=== PATIENT | male | born 1945 | race Caucasian/White ===

== ENCOUNTER 2023-02-05 09:31 | Outpatient (CLI) | payer MEDICARE, SELFPAY ==
[2023-02-05 09:40] VITALS: BMI 29.4
[2023-02-05 10:01] LABS: Basophils % 0.8 % (0.1-2.0); Eosinophils # 0.5 K/mm3 (0.0-0.4); Eosinophils % 9.3 % (0.1-12.0); Hematocrit 40.2 % (42.0-52.0); Hemoglobin 13.3 g/dL (14.1-18.0); Lymphocytes # 0.7 K/mm3 (0.7-4.5); Mean Corpuscular HGB Conc 33.2 g/dL (31.8-35.4); Mean Corpuscular Hemoglobin 30.4 pg (27.0-31.2); Mean Corpuscular Volume 91.7 fl (80-94); Mean Platelet Volume 9.9 fl (7.4-10.4); Monocytes # 0.4 K/mm3 (0.1-1.0); Monocytes % 6.3 % (1.7-9.3); Neutrophils % 70.6 % (37.0-80.0); Platelet Count 151 K/mm3 (142-424); Red Blood Count 4.38 M/mm3 (4.60-6.20); Red Cell Distribution Width 14.4 % (11.5-17.5); White Blood Count 5.6 K/mm3 (4.8-10.8)
[2023-02-05 10:04] LABS: Chloride 106 mmol/L (98-107); Potassium 3.4 mmoL/L (3.5-5.1); Sodium 139 mmol/L (136-145)
[2023-02-05 10:07] LABS: Alanine Aminotransferase 16 U/L (12-78); Albumin Level 3.9 g/dl (3.5-5.0); Albumin/Globulin Ratio 1.9 (1.1-1.8); Alkaline Phosphatase 26 U/L (38-126); Anion Gap 5.4 mEq/L (5-15); Aspartate Amino Transferase 31 U/L (17-59); Bilirubin,Total 0.7 mg/dl (0.2-1.3); Blood Urea Nitrogen 22 mg/dl (9-20); Calcium 8.9 mg/dl (8.4-10.2); Carbon Dioxide 31 mmol/L (22.0-30.0); Creatinine Clearance Estimated 79 mL/min (50-200); Estimated Glomerular Filt Rate 65 ml/min (>60); GFR (African American) 79 ML/MIN (>60); Globulin 2.1 g/dL (1.3-3.2); Glucose 108 mg/dl (74-100)
[2023-02-05] MEDS: DENOSUMAB 120MG/1.7ML VIAL 120 MG SQ (10:08)
[2023-02-05 10:10] VITALS: BP 131/69; PULSE 55; RESP 18; TEMP 36.7; O2SAT 98
[2023-02-05 11:22] LABS: Prostate Specific Ag, Diagnost 4.59 ng/ml (0.0-4.0)
== END 2023-02-05 10:10 | disposition home or self-care (01) ==
LOC: INF 09:36
PROVIDERS: Visit Provider Internal Medicine Medical Oncology
DX: C61 Malignant neoplasm of prostate (principal); C79.82 Secondary malignant neoplasm of genital organs
CPT/HCPCS: 36415; 80053; 84153; 85025; 96372; J0897

== ENCOUNTER 2023-05-20 15:52 | Outpatient (CLI) | payer MEDICARE, SELFPAY ==
[2023-05-20 15:57] VITALS: BMI 37.3
[2023-05-20] MEDS: DENOSUMAB 120MG/1.7ML VIAL 120 MG SQ (16:04)
[2023-05-20 16:06] VITALS: BP 133/66; PULSE 65; RESP 18; O2SAT 96
[2023-05-20 16:54] LABS: Basophils # 0.1 K/mm3 (0-0.2); Eosinophils # 0.2 K/mm3 (0.0-0.4); Eosinophils % 3.6 % (0.1-12.0); Hematocrit 38.8 % (42.0-52.0); Hemoglobin 13.2 g/dL (14.1-18.0); Lymphocytes # 0.7 K/mm3 (0.7-4.5); Lymphocytes % 12.5 % (10-50); Mean Corpuscular HGB Conc 33.9 g/dL (31.8-35.4); Mean Corpuscular Hemoglobin 31.9 pg (27.0-31.2); Mean Platelet Volume 9.4 fl (7.4-10.4); Monocytes # 0.4 K/mm3 (0.1-1.0); Monocytes % 7.4 % (1.7-9.3); Neutrophils # 4.5 K/mm3 (1.8-7.8); Neutrophils % 75.5 % (37.0-80.0); Platelet Count 174 K/mm3 (142-424); Red Blood Count 4.13 M/mm3 (4.60-6.20); White Blood Count 5.9 K/mm3 (4.8-10.8)
[2023-05-20 17:03] LABS: Alanine Aminotransferase 16 U/L (12-78); Albumin Level 3.9 g/dl (3.5-5.0); Alkaline Phosphatase 35 U/L (38-126); Anion Gap 7.8 mEq/L (5-15); Aspartate Amino Transferase 36 U/L (17-59); Bilirubin,Total 0.6 mg/dl (0.2-1.3); Calcium 9.1 mg/dl (8.4-10.2); Carbon Dioxide 28 mmol/L (22.0-30.0); Chloride 107 mmol/L (98-107); Glucose 104 mg/dl (74-100); Potassium 3.8 mmoL/L (3.5-5.1); Sodium 139 mmol/L (136-145); Total Protein,Serum 5.9 g/dl (6.3-8.2)
[2023-05-20 17:33] LABS: Prostate Specific Ag, Diagnost 4.11 ng/ml (0.0-4.0)
[2023-05-20 17:49] LABS: Blood Urea Nitrogen 25 mg/dl (9-20); Creatinine Clearance Estimated 79 mL/min (50-200); Estimated Glomerular Filt Rate 65 ml/min (>60); GFR (African American) 79 ML/MIN (>60)
== END 2023-05-20 16:06 | disposition home or self-care (01) ==
LOC: INF 15:54
PROVIDERS: Visit Provider Internal Medicine Medical Oncology
DX: C79.82 Secondary malignant neoplasm of genital organs (principal); C61 Malignant neoplasm of prostate
CPT/HCPCS: 80053; 84153; 85025; 96372; J0897

== ENCOUNTER 2023-08-12 13:35 | Outpatient (CLI) | payer MEDICARE, SELFPAY ==
[2023-08-12 13:39] VITALS: BMI 29.7
[2023-08-12 13:40] VITALS: BP 157/64; PULSE 74; TEMP 36.6; O2SAT 99
[2023-08-12] MEDS: DENOSUMAB 120MG/1.7ML VIAL 120 MG SQ (13:50)
[2023-08-12 14:09] LABS: Alanine Aminotransferase 21 U/L (12-78); Albumin Level 3.9 g/dl (3.5-5.0); Albumin/Globulin Ratio 1.8 (1.1-1.8); Alkaline Phosphatase 51 U/L (38-126); Anion Gap 11.2 mEq/L (5-15); Aspartate Amino Transferase 34 U/L (17-59); Bilirubin,Total 1.4 mg/dl (0.2-1.3); Blood Urea Nitrogen 23 mg/dl (9-20); Calcium 9.4 mg/dl (8.4-10.2); Carbon Dioxide 28 mmol/L (22.0-30.0); Chloride 102 mmol/L (98-107); Creatinine Clearance Estimated 87 mL/min (50-200); Estimated Glomerular Filt Rate 94 ml/min (>60); GFR (African American) 114 ML/MIN (>60); Globulin 2.2 g/dL (1.3-3.2); Glucose 141 mg/dl (74-100); Potassium 4.2 mmoL/L (3.5-5.1); Sodium 137 mmol/L (136-145); Total Protein,Serum 6.1 g/dl (6.3-8.2)
[2023-08-12 14:24] LABS: Basophils % 0.6 % (0.1-2.0); Eosinophils # 0.1 K/mm3 (0.0-0.4); Eosinophils % 1.3 % (0.1-12.0); Hematocrit 41.8 % (42.0-52.0); Lymphocytes # 0.7 K/mm3 (0.7-4.5); Lymphocytes % 10.1 % (10-50); Mean Corpuscular HGB Conc 33.6 g/dL (31.8-35.4); Mean Corpuscular Hemoglobin 31.2 pg (27.0-31.2); Mean Corpuscular Volume 92.9 fl (80-94); Monocytes # 0.3 K/mm3 (0.1-1.0); Monocytes % 4.6 % (1.7-9.3); Neutrophils % 83.4 % (37.0-80.0); Platelet Count 142 K/mm3 (142-424); Red Blood Count 4.49 M/mm3 (4.60-6.20); Red Cell Distribution Width 14.9 % (11.5-17.5); White Blood Count 7.2 K/mm3 (4.8-10.8)
[2023-08-12 14:40] LABS: Prostate Specific Ag, Diagnost 5.81 ng/ml (0.0-4.0)
== END 2023-08-12 13:55 | disposition home or self-care (01) ==
LOC: INF 13:37
PROVIDERS: Visit Provider Internal Medicine Medical Oncology
DX: C61 Malignant neoplasm of prostate (principal); C79.51 Secondary malignant neoplasm of bone; Z79.620 Long term (current) use of immunosuppressive biologic
CPT/HCPCS: 80053; 84153; 85025; 96372; J0897

== ENCOUNTER 2023-11-11 15:40 | Outpatient (CLI) | payer MEDICARE, SELFPAY ==
[2023-11-11 15:48] VITALS: BMI 29.4
[2023-11-11 15:56] VITALS: BP 127/73; PULSE 51; RESP 18; O2SAT 98
[2023-11-11 16:01] LABS: Basophils # 0.1 K/mm3 (0-0.2); Basophils % 0.9 % (0.1-2.0); Eosinophils # 0.1 K/mm3 (0.0-0.4); Hematocrit 42.9 % (42.0-52.0); Hemoglobin 13.9 g/dL (14.1-18.0); Lymphocytes # 0.8 K/mm3 (0.7-4.5); Lymphocytes % 12.2 % (10-50); Mean Corpuscular HGB Conc 32.4 g/dL (31.8-35.4); Mean Corpuscular Volume 92.8 fl (80-94); Mean Platelet Volume 8.9 fl (7.4-10.4); Monocytes # 0.4 K/mm3 (0.1-1.0); Monocytes % 5.7 % (1.7-9.3); Neutrophils # 5.1 K/mm3 (1.8-7.8); Neutrophils % 79.2 % (37.0-80.0); Platelet Count 168 K/mm3 (142-424); Red Blood Count 4.62 M/mm3 (4.60-6.20); Red Cell Distribution Width 14.5 % (11.5-17.5); White Blood Count 6.4 K/mm3 (4.8-10.8)
[2023-11-11 16:30] LABS: Alanine Aminotransferase 14 U/L (12-78); Albumin Level 3.7 g/dl (3.5-5.0); Albumin/Globulin Ratio 1.7 (1.1-1.8); Alkaline Phosphatase 31 U/L (38-126); Anion Gap 7.2 mEq/L (5-15); Aspartate Amino Transferase 28 U/L (17-59); Bilirubin,Total 0.8 mg/dl (0.2-1.3); Blood Urea Nitrogen 22 mg/dl (9-20); Calcium 9.8 mg/dl (8.4-10.2); Carbon Dioxide 28 mmol/L (22.0-30.0); Chloride 106 mmol/L (98-107); Creatinine Clearance Estimated 85 mL/min (50-200); Estimated Glomerular Filt Rate 73 ml/min (>60); GFR (African American) 88 ML/MIN (>60); Globulin 2.2 g/dL (1.3-3.2); Glucose 103 mg/dl (74-100); Potassium 4.2 mmoL/L (3.5-5.1); Sodium 137 mmol/L (136-145); Total Protein,Serum 5.9 g/dl (6.3-8.2)
[2023-11-11 17:00] LABS: Prostate Specific Ag, Diagnost 6.29 ng/ml (0.0-4.0)
== END 2023-11-11 16:00 | disposition home or self-care (01) ==
LOC: INF 15:42
PROVIDERS: Visit Provider Internal Medicine Medical Oncology
DX: C79.82 Secondary malignant neoplasm of genital organs (principal); Z79.899 Other long term (current) drug therapy
CPT/HCPCS: 80053; 84153; 85025; 96372; J0897

== ENCOUNTER 2024-02-17 13:33 | Outpatient (CLI) | payer MEDICARE, SELFPAY ==
[2024-02-17 13:52] VITALS: BMI 30.1
[2024-02-17] MEDS: DENOSUMAB 120MG/1.7ML VIAL 120 MG SUBCUT (14:00)
[2024-02-17 14:10] VITALS: BP 127/74; PULSE 56; RESP 18; TEMP 36.6; O2SAT 96
[2024-02-17 14:16] LABS: Alanine Aminotransferase 13 U/L (12-78); Alkaline Phosphatase 29 U/L (38-126); Anion Gap 8.9 mEq/L (5-15); Aspartate Amino Transferase 32 U/L (17-59); Bilirubin,Total 0.8 mg/dl (0.2-1.3); Blood Urea Nitrogen 25 mg/dl (9-20); Calcium 9.5 mg/dl (8.4-10.2); Carbon Dioxide 27 mmol/L (22.0-30.0); Chloride 106 mmol/L (98-107); Creatinine Clearance Estimated 87 mL/min (50-200); Estimated Glomerular Filt Rate 73 ml/min (>60); GFR (African American) 88 ML/MIN (>60); Glucose 95 mg/dl (74-100); Potassium 3.9 mmoL/L (3.5-5.1); Sodium 138 mmol/L (136-145)
[2024-02-17 14:18] LABS: Basophils % 0.7 % (0.1-2.0); Eosinophils # 0.1 K/mm3 (0.0-0.4); Eosinophils % 1.9 % (0.1-12.0); Hematocrit 34.6 % (42.0-52.0); Lymphocytes % 14.6 % (10-50); Mean Corpuscular HGB Conc 37.4 g/dL (31.8-35.4); Mean Corpuscular Hemoglobin 33.5 pg (27.0-31.2); Mean Corpuscular Volume 89.5 fl (80-94); Mean Platelet Volume 9.3 fl (7.4-10.4); Monocytes # 0.5 K/mm3 (0.1-1.0); Monocytes % 8.2 % (1.7-9.3); Neutrophils # 4.9 K/mm3 (1.8-7.8); Neutrophils % 74.7 % (37.0-80.0); Platelet Count 151 K/mm3 (142-424); Red Blood Count 3.87 M/mm3 (4.60-6.20); Red Cell Distribution Width 14.5 % (11.5-17.5); White Blood Count 6.5 K/mm3 (4.8-10.8)
[2024-02-17 14:47] LABS: Prostate Specific Ag, Diagnost 7.24 ng/ml (0.0-4.0)
== END 2024-02-17 14:20 | disposition home or self-care (01) ==
LOC: INF 13:36
PROVIDERS: Visit Provider Internal Medicine Medical Oncology
DX: C79.82 Secondary malignant neoplasm of genital organs (principal)
CPT/HCPCS: 80053; 84153; 85025; 96372; J0897

== ENCOUNTER → 2024-03-24 10:04 | Outpatient (CLI) | payer MEDICARE, SELFPAY ==
--- NOTE | 2024-03-24 10:49 | PC.NURSE ---
0951- labs and guardant drawn per MD order via butterfly needle in left ac. needle removed and coban applied. pt tolerated well.
== END | disposition home or self-care (01) ==
LOC: INF 10:04
PROVIDERS: Visit Provider Internal Medicine Medical Oncology
DX: C79.82 Secondary malignant neoplasm of genital organs (principal)
CPT/HCPCS: 36415

== ENCOUNTER 2024-05-12 08:41 | Outpatient (CLI) | payer MEDICARE, SELFPAY ==
--- NOTE | 2024-05-12 08:54 | PC.NURSE ---
0850-Blood drawn from left AC using butterfly needle to check labs per Dr Garcia.
[2024-05-12 09:07] LABS: Basophils # 0.1 K/mm3 (0-0.2); Basophils % 0.8 % (0.1-2.0); Eosinophils # 0.9 K/mm3 (0.0-0.4); Eosinophils % 12.7 % (0.1-12.0); Hematocrit 38.8 % (42.0-52.0); Hemoglobin 13.4 g/dL (14.1-18.0); Lymphocytes % 14.7 % (10-50); Mean Corpuscular HGB Conc 34.5 g/dL (31.8-35.4); Mean Corpuscular Volume 86.8 fl (80-94); Monocytes # 0.7 K/mm3 (0.1-1.0); Monocytes % 9.3 % (1.7-9.3); Neutrophils # 4.3 K/mm3 (1.8-7.8); Neutrophils % 60.4 % (37.0-80.0); Platelet Count 208 K/mm3 (142-424); Red Blood Count 4.47 M/mm3 (4.60-6.20); Red Cell Distribution Width 13.7 % (11.5-17.5); White Blood Count 7.1 K/mm3 (4.8-10.8)
[2024-05-12 09:13] LABS: Alanine Aminotransferase 22 U/L (12-78); Albumin Level 4.2 g/dl (3.5-5.0); Albumin/Globulin Ratio 2.2 (1.1-1.8); Alkaline Phosphatase 36 U/L (38-126); Anion Gap 10.1 mEq/L (5-15); Aspartate Amino Transferase 43 U/L (17-59); Bilirubin,Total 0.3 mg/dl (0.2-1.3); Blood Urea Nitrogen 16 mg/dl (9-20); Calcium 9.5 mg/dl (8.4-10.2); Carbon Dioxide 26 mmol/L (22.0-30.0); Chloride 103 mmol/L (98-107); Estimated Glomerular Filt Rate 65 ml/min (>60); GFR (African American) 79 ML/MIN (>60); Globulin 1.9 g/dL (1.3-3.2); Glucose 98 mg/dl (74-100); Potassium 4.1 mmoL/L (3.5-5.1); Sodium 135 mmol/L (136-145); Total Protein,Serum 6.1 g/dl (6.3-8.2)
== END 2024-05-12 08:52 | disposition home or self-care (01) ==
LOC: INF 08:42
PROVIDERS: Visit Provider Internal Medicine Medical Oncology
DX: C79.82 Secondary malignant neoplasm of genital organs (principal)
CPT/HCPCS: 36415; 80053; 85025

== ENCOUNTER 2024-06-01 13:28 | Outpatient (CLI) | payer MEDICARE, SELFPAY ==
[2024-06-01 13:30] VITALS: BP 131/70; PULSE 76; RESP 18; TEMP 36.7; O2SAT 99
[2024-06-01] MEDS: DENOSUMAB 120MG/1.7ML VIAL 120 MG SUBCUT (13:45)
[2024-06-01 13:46] LABS: Basophils # 0.1 K/mm3 (0-0.2); Basophils % 0.8 % (0.1-2.0); Eosinophils # 0.2 K/mm3 (0.0-0.4); Eosinophils % 2.7 % (0.1-12.0); Hematocrit 41.1 % (42.0-52.0); Hemoglobin 13.7 g/dL (14.1-18.0); Lymphocytes # 0.8 K/mm3 (0.7-4.5); Lymphocytes % 12.4 % (10-50); Mean Corpuscular HGB Conc 33.3 g/dL (31.8-35.4); Mean Corpuscular Hemoglobin 30.2 pg (27.0-31.2); Mean Corpuscular Volume 90.5 fl (80-94); Mean Platelet Volume 11.2 fl (7.4-10.4); Monocytes # 0.5 K/mm3 (0.1-1.0); Monocytes % 7.5 % (1.7-9.3); Neutrophils # 4.9 K/mm3 (1.8-7.8); Neutrophils % 75.2 % (37.0-80.0); Platelet Count 172 K/mm3 (142-424); Red Blood Count 4.54 M/mm3 (4.60-6.20); Red Cell Distribution Width 14.1 % (11.5-17.5); White Blood Count 6.6 K/mm3 (4.8-10.8)
[2024-06-01 13:50] LABS: Albumin Level 4.1 g/dl (3.5-5.0); Chloride 105 mmol/L (98-107); Sodium 140 mmol/L (136-145)
[2024-06-01 13:53] LABS: Alanine Aminotransferase 16 U/L (12-78); Albumin/Globulin Ratio 2.1 (1.1-1.8); Alkaline Phosphatase 36 U/L (38-126); Aspartate Amino Transferase 34 U/L (17-59); Bilirubin,Total 0.7 mg/dl (0.2-1.3); Blood Urea Nitrogen 17 mg/dl (9-20); Calcium 9.6 mg/dl (8.4-10.2); Carbon Dioxide 28 mmol/L (22.0-30.0); Estimated Glomerular Filt Rate 73 ml/min (>60); GFR (African American) 88 ML/MIN (>60); Glucose 115 mg/dl (74-100); Total Protein,Serum 6.1 g/dl (6.3-8.2)
[2024-06-01 15:01] LABS: Prostate Specific Ag, Diagnost 7.61 ng/ml (0.0-4.0)
== END 2024-06-01 13:54 | disposition home or self-care (01) ==
LOC: INF 13:29
PROVIDERS: Visit Provider Internal Medicine Medical Oncology
DX: C79.82 Secondary malignant neoplasm of genital organs (principal)
CPT/HCPCS: 36415; 80053; 84153; 85025; 96372; J0897

== ENCOUNTER 2024-07-14 13:25 | Outpatient (CLI) | payer MEDICARE, SELFPAY ==
[2024-07-14 13:52] LABS: Chloride 105 mmol/L (98-107); Sodium 138 mmol/L (136-145)
[2024-07-14 13:53] LABS: Basophils % 0.7 % (0.1-2.0); Eosinophils # 0.1 Kmm3 (0.0-0.4); Eosinophils % 2.4 % (0.1-12.0); Hematocrit 39.8 % (42.0-52.0); Hemoglobin 13.4 g/dL (14.1-18.0); Immature Granulocytes # 0.09 10^3uL; Immature Granulocytes % 1.6 %; Lymphocytes # 0.7 K/mm3 (0.7-4.5); Mean Corpuscular HGB Conc 33.7 g/dL (31.8-35.4); Mean Corpuscular Hemoglobin 30.9 pg (27.0-31.2); Mean Corpuscular Volume 91.9 fl (80-94); Mean Platelet Volume 11.3 fl (7.4-10.4); Monocytes # 0.4 K/mm3 (0.1-1.0); Monocytes % 8.1 % (1.7-9.3); Neutrophils # 4.1 K/mm3 (1.8-7.8); Neutrophils % 74.2 % (37.0-80.0); Nucleated Red Blood Cells # 0 10^3/uL; Nucleated Red Blood Cells % 0 %; Platelet Count 173 K/mm3 (142-424); Potassium 4.3 mmoL/L (3.5-5.1); Red Blood Count 4.33 M/mm3 (4.60-6.20); Red Cell Distribution Width 14.4 % (11.5-17.5); Red Cell Distribution Width-SD 48.3 fL; White Blood Count 5.5 K/mm3 (4.8-10.8)
[2024-07-14 13:55] LABS: Alanine Aminotransferase 19 U/L (12-78); Albumin/Globulin Ratio 1.8 (1.1-1.8); Anion Gap 10.3 mEq/L (5-15); Aspartate Amino Transferase 32 U/L (17-59); Blood Urea Nitrogen 23 mg/dl (9-20); Carbon Dioxide 27 mmol/L (22.0-30.0); Estimated Glomerular Filt Rate 59 ml/min (>60); GFR (African American) 71 ML/MIN (>60); Globulin 2.2 g/dL (1.3-3.2); Total Protein,Serum 6.2 g/dl (6.3-8.2)
[2024-07-14 13:56] LABS: Alkaline Phosphatase 30 U/L (38-126); Bilirubin,Total 0.7 mg/dl (0.2-1.3); Calcium 9.7 mg/dl (8.4-10.2); Glucose 122 mg/dl (74-100)
[2024-07-14 15:36] LABS: Prostate Specific Ag, Diagnost 6.88 ng/ml (0.0-4.0)
== END 2024-07-14 13:35 | disposition home or self-care (01) ==
LOC: INF 13:32
PROVIDERS: Visit Provider Internal Medicine Medical Oncology
DX: C79.82 Secondary malignant neoplasm of genital organs (principal)
CPT/HCPCS: 36415; 80053; 84153; 85025

== ENCOUNTER 2024-08-25 13:40 | Outpatient (CLI) | payer MEDICARE, SELFPAY ==
--- OUTSIDE RECORDS SUMMARY | 2024-08-25 13:45 | XMS_ITS | Clinical Summary ---
Author Organization [employer] Address [address] [place] [address] Care Team Providers Care Distribution Analyst Name Role Phone Bruce Garcia MD Unavailable Raya Eaton PA-C Unavailable [phone] Luz Suarez RN Unavailable Unavailable Close, Berkley Girard RN Unavailable Unavailable Allergies Active Allergy Reactions Criticality Noted Date Comments Tuberculin Ppd 05/06/2022 Medications glucosamine sulfate 500 mg Tab glucosamine sulfate 500 mg tablet Active atorvastatin (LIPITOR) 10 MG tablet Lipitor 10 mg tablet Every night at bedtime Active bisoprolol-hydr oCHLOROthiazide (ZIAC) 10-6.25 mg per tablet Ziac 10 mg-6.25 mg tablet Daily Active fenofibrate 150 mg Cap Fenofibrate Active predniSONE (DELTASONE) 5 MG tablet Take 1 tablet (5 mg total) by mouth in the morning. 90 tablet 3 3 Active abiraterone (Zytiga) 500 mg Tab Take 2 tablets (1,000 mg total) by mouth daily. Take 2 tablets daily by mouth 60 tablet 3 3 Active atorvastatin (LIPITOR) 20 MG tablet Take 1 tablet (20 mg total) by mouth daily. 3 Active Active Problems Problem Noted Date Diagnosed Date Prostate cancer 01/23/2022 Cancer Staging:Clinical:Stage IVB(cTX, cN0, pM1b) - Signed by Bruce Garcia MD on 01/23/2022 Social History Tobacco Use Types Packs/Day Years Used Date Smoking Tobacco: Never Alcohol Use Standard Drinks/Week Comments Never 0 (1 standard drink = 0.6 oz pur e alcohol) Social Connection and Isolat ion Panel [NHANES] Answer Date Recorded In a typical week, how many times do you talk on the phone with family, friends, or neighbors? More than three times a week 05/06/2022 How often do you get togethe r with friends or relatives? More than three times a week 05/06/2022 How often do you attend chur ch or christian services? More than 4 times per year 05/06/2022 Do you belong to any clubs o r organizations such as methodist groups, unions, fraternal or athletic groups, or school groups? No 05/06/2022 How often do you attend meet ings of the clubs or organizations you belong to? Never 05/06/2022 Are you , , di vorced, , never , or living with a partner? 05/06/2022 AUDIT-C Answer Date Recorded Q1: How often do you have a drink containing alc ohol? Never 05/06/2022 Average Number of Drinks Not on file 023 Frequency of Binge Drinking Not on file 03/2022 Overall Financial Resource Strain (CARDIA) Answe r Date Recorded How hard is it for you to pa y for the very basics like food, housing, medical care, and heating? Not hard at all 05/06/2022 [facility] - Occupational Stress Questionnaire Answer Date Recorded Do you feel stress - tense, restless, nervous, or anxious, or unable to sleep at night because your mind is troubled all the time - these days? Not at all 05/06/2022 Exercise Vital Sign Answer Date Recorde d On average, how many days pe r week do you engage in moderate to strenuous exercise (like a brisk walk)? 4 days 05/06/2022 On average, how many minutes do you engage in exercise at this level? 30 min 05/06/2022 Hunger Vital Sign Answer Date Recorded Within the past 12 months, y ou worried that your food would run out before you got the money to buy more. Never true 05/07/19 23 Within the past 12 months, t he food you bought just didn't last and you didn't have money to get more. Never true 05/06/2022 PRAPARE - Transportation Answer Date Re corded In the past 12 months, has l ack of transportation kept you from medical appointments or from getting medications? No 03/2022 In the past 12 months, has l ack of transportation kept you from meetings, work, or from getting things needed for daily living? No 05/06/2022 Housing Stability Vital Sign Answer August e Recorded In the last 12 months, was t here a time when you were not able to pay the mortgage or rent on time? No 05/06/2022 Number of Places Lived in the Last Year Not on f ile 05/06/2022 In the last 12 months, was t here a time when you did not have a steady place to sleep or slept in a half-way (including now)? No 05/06/2022 Interpersonal Safety Answer Date Record ed Family or friends hurt you Not on file 03/25 Family or friends insult you Not on file Family or friends threaten you Not on file 0 03/25/2023 Family or friends scream or curse at you Not on file 03/25/2023 Housing Stability Answer Date Recorded Living situation today Not on file Living situation problems Not on file 2023 Food Insecurity Answer Date Recorded Food run out past 12 months Not on file 03/08 Food did not last past 12 months Not on file 03/25/2023 Employment Answer Date Recorded Help finding and keeping a job Not on file 0 03/25/2023 Family and Community Support Answer August e Recorded Help with Day to Day Activities Not on file 03/25/2023 Feeling Lonely or Isolated Not on file 03/25 Educational Attainment Answer Date Ethan rded Speak language other than Macedonian at home Not on file 03/25/2023 Want help with school or training Not on file 03/25/2023 Depression Answer Date Recorded PHQ-2 Risk Not on file 03/25/2023 Disabilities Answer Date Recorded Difficulty concentrating Not on file 024 Difficulty doing errands alone Not on file 0 03/25/2023 Substance Use Answer Date Recorded Used prescription meds for non-medical reasons N ot on file 03/25/2023 Used illegal drugs past 12 months Not on file 03/25/2023 Sex and Gender Information Value Date Recorded Sex Assigned at Not on file Legal Sex Male 5:24 PM CDT Gender Identity Not on file Sexual Orientation Not on file Last Filed Vital Signs Vital Sign Reading Time Taken Comments Blood Pressure 136/65 11/13/2022 9:54 AM EDT Pulse 54 11/13/2022 9:54 AM EDT Temperature 36.2 C (97.2 F) 11/13/2022 9:54 AM EDT Respiratory Rate 16 11/13/2022 9:54 AM EDT Oxygen Saturation 97% 11/13/2022 9:54 AM EDT Inhaled Oxygen Concentration - - Weight 94.5 kg (208 lb 4.8 oz) 11/13/2022 9:54 A M EDT Height 176 cm (5' 9.29 ) 11/13/2022 9:54 AM EDT Body Mass Index 30.5 11/13/2022 9:54 AM EDT Plan of Treatment Health Maintenance Due Date Last Done Comments Depression Screening (12+) 1959 Hepatitis C Screening 08/30/1965 DTAP/TDAP/TD VACCINES (1 - Tdap) 08/30/1966 Pneumococcal 50+ years (1 of 1 - PCV) 08/30/1997 Shingles Vaccine (Zoster) (1 of 2) 08/30/1997 Medicare Initial AWV G0438 11/07/2020 Respiratory Syncytial Virus (RSV) Adult or (1 - 1-dose 75+ series) 08/30/2022 Tobacco Cessation Counseling and Screening (12+) 08/1408/14/2022 COVID-19 VACCINE ( - season) 2023 Falls Risk Screening 03/08/2024 Influenza Vaccine (Season Ended) 2024 Insurance [employer] MEDICARE PPO [employer] MEDICARE HMO Care Teams Distribution Analyst Relationship Specialty Start Date End Date Bruce Garcia MD [address] [facility] [address] [place] [address] Medical Oncologist Hematology and Oncology 05/05/22 Raya Eaton, PACaroleeC [address] [place] [address] Physician Wet Process Miller Oncology 05/05/22 Luz Suarez, RN Nurse Navigator Oncology 07/02/22 Berkley Berry RN Registered Nurse Oncology 07/02/22
--- OUTSIDE RECORDS SUMMARY | 2024-08-25 13:45 | XMS_ITS | Encounter Summary ---
Author Organization [email or web address] Address [address] [place] [address] Care Team Providers Care Purifying Plant Operator Name Role Phone Bruce Garcia MD Unavailable Raya Eaton PA-C Unavailable [phone] Luz Suarez RN Unavailable Unavailable Close, Berkley Girard RN Unavailable Unavailable Encounter Details Date Type Department Care Team (Late st Contact Info) Description 07/27/2019 Transcribed Document [facility] [place] [address] [place] [address] ProviderJarret MD [address] [place] [address] Social History Tobacco Use Types Packs/Day Years Used Date Smoking Tobacco: Never Assessed Sex and Gender Information Value Date Recorded Sex Assigned at Not on file Legal Sex Male 5:24 PM CDT Gender Identity Not on file Sexual Orientation Not on file documented as of this encounter Miscellaneous Notes * Cerner Conversion Note - Jarret Sotelo MD - 07/27/2019 3:31 PM CDT Patient Education Materials Follows: General Anesthesia, Adult, Care After This sheet gives you information about how to care for yourself after your procedure. Your health care provider may also give you more specific instructions. If you have problems or questions, contact your health care provider. What can I expect after the procedure? After the procedure, the following side effects are common: ??? Pain or discomfort at the IV site. ??? Nausea. ??? Vomiting. ??? Sore throat. ??? Trouble concentrating. ??? Feeling cold or chills. ??? Weak or tired. ??? Sleepiness and fatigue. ??? Soreness and body aches. These side effects can affect parts of the body that were not involved in surgery. Follow these instructions at home: For at least 24 hours after the procedure: ??? Have a responsible adult stay with you. It is important to have someone help care for you until you are awake and alert. ??? Rest as needed. ??? Do not: ? Participate in activities in which you could fall or become injured. ? Drive. ? Use heavy machinery. ? Drink alcohol. ? Take sleeping pills or medicines that cause drowsiness. ? Make important decisions or sign legal documents. ? Take care of children on your own. Eating and drinking ??? Follow any instructions from your health care provider about eating or drinking restrictions. ??? When you feel hungry, start by eating small amounts of foods that are soft and easy to digest (bland), such as toast. Gradually return to your regular diet. ??? Drink enough fluid to keep your urine pale yellow. ??? If you vomit, rehydrate by drinking water, juice, or clear broth. General instructions ??? If you have sleep apnea, surgery and certain medicines can increase your risk for breathing problems. Follow instructions from your health care provider about wearing your sleep device: ? Anytime you are sleeping, including during daytime naps. ? While taking prescription pain medicines, sleeping medicines, or medicines that make you drowsy. ??? Return to your normal activities as told by your health care provider. Ask your health care provider what activities are safe for you. ??? Take hdzb-wpa-gsacvso and prescription medicines only as told by your health care provider. ??? If you smoke, do not smoke without supervision. ??? Keep all follow-up visits as told by your health care provider. This is important. Contact a health care provider if: ??? You have nausea or vomiting that does not get better with medicine. ??? You cannot eat or drink without vomiting. ??? You have pain that does not get better with medicine. ??? You are unable to pass urine. ??? You develop a skin rash. ??? You have a fever. ??? You have redness around your IV site that gets worse. Get help right away if: ??? You have difficulty breathing. ??? You have chest pain. ??? You have blood in your urine or stool, or you vomit blood. Summary ??? After the procedure, it is common to have a sore throat or nausea. It is also common to feel tired. ??? Have a responsible adult stay with you for the first 24 hours after general anesthesia. It is important to have someone help care for you until you are awake and alert. ??? When you feel hungry, start by eating small amounts of foods that are soft and easy to digest (bland), such as toast. Gradually return to your regular diet. ??? Drink enough fluid to keep your urine pale yellow. ??? Return to your normal activities as told by your health care provider. Ask your health care provider what activities are safe for you. This information is not intended to replace advice given to you by your health care provider. Make sure you discuss any questions you have with your health care provider. Document Released: 05/31/2001 Document Revised: 10/08/2017 Document Reviewed: 10/08/2017 [employer] Interactive Patient Education ? 2019 [employer]clip. Gastroenterology Open Hernia Repair, Adult, Care After These instructions give you information about caring for yourself after your procedure. Your doctor may also give you more specific instructions. If you have problems or questions, contact your doctor. Follow these instructions at home: Surgical cut (incision) care ??? Follow instructions from your doctor about how to take care of your surgical cut area. Make sure you: ? Wash your hands with soap and water before you change your bandage (dressing). If you cannot use soap and water, use hand cupola operator insulation. ? Change your bandage as told by your doctor. ? Leave stitches (sutures), skin glue, or skin tape (adhesive) strips in place. They may need to stay in place for 2 weeks or longer. If tape strips get loose and curl up, you may trim the loose edges. Do not remove tape strips completely unless your doctor says it is okay. ??? Check your surgical cut every day for signs of infection. Check for: ? More redness, swelling, or pain. ? More fluid or blood. ? Warmth. ? Pus or a bad smell. Activity ??? Do not drive or use heavy machinery while taking prescription pain medicine. Do not drive until your doctor says it is okay. ??? Until your doctor says it is okay: ? Do not lift anything that is heavier than 10 lb (4.5 kg). ? Do not play contact sports. ??? Return to your normal activities as told by your doctor. Ask your doctor what activities are safe. General instructions ??? To prevent or treat having a hard time pooping (constipation) while you are taking prescription pain medicine, your doctor may recommend that you: ? Drink enough fluid to keep your pee (urine) clear or pale yellow. ? Take vkpc-vbq-bhodzcv or prescription medicines. ? Eat foods that are high in fiber, such as fresh fruits and vegetables, whole grains, and beans. ? Limit foods that are high in fat and processed sugars, such as fried and sweet foods. ??? Take qtlt-wdc-mvvobjp and prescription medicines only as told by your doctor. ??? Do not take baths, swim, or use a hot tub until your doctor says it is okay. ??? Keep all follow-up visits as told by your doctor. This is important. Contact a doctor if: ??? You develop a rash. ??? You have more redness, swelling, or pain around your surgical cut. ??? You have more fluid or blood coming from your surgical cut. ??? Your surgical cut feels warm to the touch. ??? You have pus or a bad smell coming from your surgical cut. ??? You have a fever or chills. ??? You have blood in your poop (stool). ??? You have not pooped in 2?3 days. ??? Medicine does not help your pain. Get help right away if: ??? You have chest pain or you are short of breath. ??? You feel light-headed. ??? You feel weak and dizzy (feel faint). ??? You have very bad pain. ??? You throw up (vomit) and your pain is worse. This information is not intended to replace advice given to you by your health care provider. Make sure you discuss any questions you have with your health care provider. Document Released: 03/15/2015 Document Revised: 09/11/2016 Document Reviewed: 08/05/2016 Elsevier Interactive Patient Education ? 2018 [employer] documented in this encounter Plan of Treatment Not on file documented as of this encounter Visit Diagnoses Not on filedocumented in this encounter Care Teams Purifying Plant Operator Relationship Specialty Start Date End Date Bruce Garcia MD [address] [facility] [address] [place] [address] Medical Oncologist Hematology and Oncology 05/05/22 Ryaa Eaton, PA-C [address] [place] [address] Physician Auto Overhauler Oncology 05/05/22 Luz Suarez, RN Nurse Navigator Oncology 07/02/22 Berkley Berry, SHERI Registered Nurse Oncology 07/02/22 documented as of this encounter
--- OUTSIDE RECORDS SUMMARY | 2024-08-25 13:45 | XMS_ITS | Encounter Summary ---
Author Organization [employer] Address [address] [place] [address] Care Team Providers Care Flow Worker Name Role Phone Bruce Garcia MD Unavailable Raya Eaton PA-C Unavailable [phone] Luz Suarez RN Unavailable Unavailable Close, Berkley Girard RN Unavailable Unavailable Encounter Details Date Type Department Care Team (Late st Contact Info) Description 07/27/2019 Transcribed Document [facility] [place] Family Medicine [address] [place] [address] ProviderJarret MD [address] [place] [address] Social History Tobacco Use Types Packs/Day Years Used Date Smoking Tobacco: Never Assessed Sex and Gender Information Value Date Recorded Sex Assigned at Not on file Legal Sex Male 5:24 PM CDT Gender Identity Not on file Sexual Orientation Not on file documented as of this encounter Miscellaneous Notes * Cerner Conversion Note - Jarret Sotelo MD - 07/27/2019 11:15 AM CDT Patient: MIGUEL ÁNGEL TORIBIO Age: 73 years Sex: Male : 1945 Associated Diagnoses: None Author: SHAI REYEZ, MILK TESTER Chief Complaint LIH Review of Systems ROS reviewed as documented in chart no change since last seen by surgeon Health Status Allergies: Allergic Reactions (Selected) Severity Not Documented Uncoded Allergy (See Comment)- No reactions were documented., Allergies (1) Active Reaction Uncoded Allergy (See Comment) None Documented Current medications: (Selected) Inpatient Medications Ordered Ancef: 2 Gram, 50 mL, 100 mL/Hr, IV Piggyback, PREOP Lactated Ringers Injection intravenous solution 1,000 mL: 20 mL/Hr, IntraVENous Sodium Chloride 0.9% intravenous solution 1,000 mL: 100 mL/Hr, IntraVENous lidocaine 1% preservative-free injectable solution: 0.5 mL, IntraDermal, 1-Time Documented Medications Documented atorvastatin: 20 mg, Oral, Daily, 0 Refill(s) bisoprolol-hydrochlorothiazide 2.5 mg-6.25 mg oral tablet: 1 Tab, Oral, Daily, 30 Tab, 0 Refill(s) fenofibrate: 134 mg, Oral, At Bedtime, 0 Refill(s) glucosamine: 500 mg, Oral, BID, 0 Refill(s) sulfamethoxazole-trimethoprim 400 mg-80 mg oral tablet: 1 Tab, Oral, Q12H, 0 Refill(s), Home Medications (5) Active atorvastatin 20 mg, Oral, Daily bisoprolol-hydrochlorothiazide 2.5 mg-6.25 mg oral tablet 1 Tab, Oral, Daily fenofibrate 134 mg, Oral, At Bedtime glucosamine 500 mg, Oral, BID sulfamethoxazole-trimethoprim 400 mg-80 mg oral tablet 1 Tab, Oral, Q12H , Medications (4) Active Scheduled: (2) ceFAZolin/D5w 2 Gram 50 mL, IV Piggyback, PREOP lidocaine 1% *PF* inj 2 mL 0.5 mL, IntraDermal, 1-Time Continuous: (2) lactated ringers 1,000 mL 1,000 mL, IntraVENous, 20 mL/Hr NaCl 0.9% 1,000 mL 1,000 mL, IntraVENous, 100 mL/Hr PRN: (0) Problem list: All Problems Seasonal allergies / SNOMED CT 118478802 / Confirmed especially in the fall and spring Inguinal hernia / SNOMED CT 3127684851 / Confirmed Hyperlipidemia / SNOMED CT 21184264 / Confirmed High blood pressure / SNOMED CT 16891232 / Confirmed Disorder of prostate / SNOMED CT 81914573 / Confirmed CA - Cancer of prostate / SNOMED CT 4247757315 / Confirmed CA - Cancer of prostate / SNOMED CT 9997566146 / Confirmed Back pain / SNOMED CT 979033108 / Confirmed, Active Problems (8) Back pain CA - Cancer of prostate CA - Cancer of prostate Disorder of prostate High blood pressure Hyperlipidemia Inguinal hernia Seasonal allergies Histories Past Medical History: No active or resolved past medical history items have been selected or recorded. Family History: No family history items have been selected or recorded. Procedure history: Left Knee Scope in the week of 02/25/1994 at 48 Years. Left Knee Scope in the week of 02/25/1993 at 47 Years. Cyst removed from back of neck in the month of 05/1980 at 34 Years. Right Groin Hernia repair in 1954 at 9 Years. Tonsillectomy in 1954 at 9 Years. prostatetomy-unsuccessful. Physical Examination VS/Measurements No qualifying data available, Measurements from flowsheet : Measurements 07/27/2019 11:11 EDT Height Source Measured Height Entry Format [place] Height/Length, MONGOLIAN (ft) 5 ft Height/Length MONGOLIAN 11 Inch CLINICALHEIGHT 180.34 cm [place] Body Weight 74 kg Weight Source Standing scale Weight Entry Format [place] Weight Bel[place]ian lb 192.4 lb CLINICALWEIGHT 87.45 kg Body Surface Area (BSA) 2.08 m2 Body Mass Index 26.9 kg/m2 HI 07/26/2019 13:51 EDT Height Source Measured Height Entry Format [place] Weight Source Standing scale Weight Entry Format [place] General: Alert and oriented, No acute distress. Eye: Pupils are equal, round and reactive to light, Extraocular movements are intact, glasses. HENT: Normocephalic, slightly [place]. Neck: Supple, Non-tender. Respiratory: Lungs are clear to auscultation, Respirations are non-labored. Cardiovascular: Normal rate, Regular rhythm, No murmur, No gallop, No edema. Gastrointestinal: Soft, Non-tender, LIH. Genitourinary: No costovertebral angle tenderness. Lymphatics: No lymphadenopathy neck, axilla, groin. Musculoskeletal: Normal range of motion, Normal strength. Integumentary: Warm, Dry, [place]. Neurologic: Alert, Oriented. Psychiatric: Cooperative, Appropriate mood & affect. Review / Management Results review: No qualifying data available. Impression and Plan Condition: Stable. documented in this encounter Plan of Treatment Not on file documented as of this encounter Visit Diagnoses Not on filedocumented in this encounter Care Teams Flow Worker Relationship Specialty Start Date End Date Bruce Garcia MD [address] [facility] [address] [place] [address] Medical Oncologist Hematology and Oncology 05/05/22 Raya Eaton, PA-C [address] [place] [address] Physician Hydraulic Miner Oncology 05/05/22 Luz Suarez, RN Nurse Navigator Oncology 07/02/22 Berkley Berry RN Registered Nurse Oncology 07/02/22 documented as of this encounter
--- OUTSIDE RECORDS SUMMARY | 2024-08-25 13:45 | XMS_ITS | Referral Summary ---
Author Organization [employer] Address [address] [place] [address] Care Team Providers Care Network Systems Engineer Name Role Phone Bruce Garcia MD Unavailable Raya Eaton PA-C Unavailable [phone] Luz Suarez RN Unavailable Unavailable Close, [...] often do you attend chur ch or temple services? More than 4 times per year 05/06/2022 Do you belong to any clubs o r organizations such as congregation groups, unions, fraternal or athletic groups, or [...] and heating? Not hard at all 05/06/2022 [facility] - Occupational Stress [...] place to sleep or slept in a long-term (including now)? No 05/06/2022 Interpersonal Safety Answer [...] Date Ethan rded Speak language other than Icelandic at home Not on file 03/25/2023 Want [...] 11/13/2022 9:54 AM EDT Plan of Treatment Not on file [place] [address] [address] [place] [address] MEDICARE PPO [facility] MEDICARE HMO Member Subscriber Plan / Payer (Ef fective for All Dates) Name:Miguel Ángel Toribio Relation to Subscriber:Self Name:Miguel Ángel Toribio Payer ID:[id number] Type:Not on file Address: [place] [id number] Care Teams Network Systems Engineer Relationship Specialty Start Date End Date Bruce Garcia MD [address] [facility] [address] [address] Medical Oncologist Hematology and Oncology 2/28/23 Raya Eaton, PAVictoria [address] [facility] [address] [facility] [address] [place] [address] Physician Credit Reporter Oncology 05/05/22 Luz Suarez, RN Nurse Navigator Oncology 07/02/22 Berkley Berry, RN Registered Nurse Oncology 07/02/22
--- OUTSIDE RECORDS SUMMARY | 2024-08-25 13:45 | XMS_ITS ---
Author Organization [employer] Address [address] [place] [address] Care Team Providers Care Impact Retail Service Merchandiser Name Role Phone Bruce Garcia MD Unavailable Raya Eaton PA-C Unavailable [phone] Luz Suarez RN Unavailable Unavailable Close, Berkley Girard RN Unavailable Unavailable Active Problems Problem Noted Date Diagnosed Date Prostate cancer 01/23/2022 Cancer Staging:Clinical:Stage IVB(cTX, cN0, pM1b) - Signed by Bruce Garcia MD on 01/23/2022 Current Oncology Plans No current plan information found. Past Plans Therapy Infusion Plan 1 Plan Name Start Date Discontinue Date Treatment Medications Discontinue Reason Plan Provider [facility] BONE MODIFYING AGENT DENOSUMAB (PROLIA, XGEVA) 01/23/2022 02/24/2023 denosumab (XGEVA)sodium chloride 0.9 % (NS) Patient Preference Bruce Garcia MD Radiation Treatments * No radiation treatments are documented for this patient in [facility]. Treatments may have been administered in another system.
--- OUTSIDE RECORDS SUMMARY | 2024-08-25 13:45 | XMS_ITS | Encounter Summary ---
Author Organization [employer] Address [address] [place] [address] Care Team Providers Care Spine Supervisor Name Role Phone Bruce Garcia MD Unavailable aRya Eaton PA-C Unavailable [phone] Luz Suarez RN Unavailable Unavailable Close, Berkley Girard RN Unavailable Unavailable Encounter Details Date Type Department Care Team (Late st Contact Info) Description 07/27/2019 Transcribed Document [facility] [place] [address] [place] [address] ProviderJarret MD [address] [place] [address] Social History Tobacco Use Types Packs/Day Years Used Date Smoking Tobacco: Never Assessed Sex and Gender Information Value Date Recorded Sex Assigned at Not on file Legal Sex Male 5:24 PM CDT Gender Identity Not on file Sexual Orientation Not on file documented as of this encounter Miscellaneous Notes * Cerner Conversion Note - Jarret ProviderMD - 07/27/2019 11:11 AM CDT Height and Weight, Clinical Dosing Entered On: 07/27/2019 11:11 EDT Performed On: 07/27/2019 11:11 EDT by MARY Valdovinos RN Height and Weight, Clinical Dosing Height Source : Measured Height Entry Format : Bim Height, Feet : 5 ft(Converted to: 152 cm, 60 Inch) Height, Inches : 11 Inch(Converted to: 0 ft 11 Inch, 27.94 cm) Clinical Height : 180.34 cm Weight Source : Standing scale Weight Entry Format : Bim Clinical Dosing Weight : 87.45 kg Weight, Pounds : 192.4 lb Body Surface Area (BSA) : 2.08 m2 Body Mass Index : 26.9 kg/m2 (HI) Cocoa Body Weight : 74 kg MARY Valdovinos, RN - 07/27/2019 11:11 EDT Electronically signed by Cecille [facility] Conversion Tax Map Technician Cerner at 06/23/2022 8:05 PM CDT documented in this encounter Plan of Treatment Not on file documented as of this encounter Visit Diagnoses Not on filedocumented in this encounter Care Teams Spine Supervisor Relationship Specialty Start Date End Date Bruce Garcia MD [address] [facility] [address] [id number] Medical Oncologist Hematology and Oncology 05/05/22 Raya Eaton, PA-C [address] [facility] [address] [facility] [address] [place] [address] Physician Home Service Director Oncology 05/05/22 Luz Suarez, SHERI Nurse Navigator Oncology 07/02/22 Berkley Berry RN Registered Nurse Oncology 07/02/22 documented as of this encounter
--- OUTSIDE RECORDS SUMMARY | 2024-08-25 13:45 | XMS_ITS | Encounter Summary ---
Author Organization [email or web address] Address [address] [place] [address] Care Team Providers Care Data Manager Name Role Phone Bruce Garcia MD Unavailable Raya Eaton PA-C Unavailable [phone] Luz Suarez RN Unavailable Unavailable Close, Berkley Girard RN Unavailable Unavailable Encounter Details Date Type Department Care Team (Late st Contact Info) Description 07/27/2019 Transcribed Document [facility] [place] [address] [place] [address] ProviderJarret MD [address] [place] [address] Social History Tobacco Use Types Packs/Day Years Used Date Smoking Tobacco: Never Assessed Sex and Gender Information Value Date Recorded Sex Assigned at Not on file Legal Sex Male 5:24 PM CDT Gender Identity Not on file Sexual Orientation Not on file documented as of this encounter Miscellaneous Notes * Cerner Conversion Note - Jarret Sotelo MD - 07/27/2019 2:13 PM CDT DATE OF PROCEDURE: 07/27/2019 SURGEON: Melvin Moctezuma MD PREOPERATIVE DIAGNOSIS: Left inguinal hernia. POSTOPERATIVE DIAGNOSIS: Left inguinal hernia. PROCEDURE: Laparoscopic converted to open left inguinal hernia repair with mesh. LOUVER DOOR ASSEMBLER: Irineo Cao. ANESTHESIA: General endotracheal. FINDINGS: The patient had severe distortion of his left inguinal anatomy from prior attempts of prostatectomy related to prostate tumor invading the bladder as well as radiation therapy. For this reason, he was converted from a laparoscopic to an open procedure. DESCRIPTION OF PROCEDURE: The patient was brought to the operating room where general endotracheal anesthesia was induced. He was sterilely prepped and draped. Preoperative antibiotics were in place. Sequential compression boots were used for DVT prophylaxis. Time-out was performed per protocol. 0.5% Marcaine with epinephrine was placed at each incision site for postoperative analgesia. A small stab incision was made at the umbilicus, and a Veress needle placed and CO2 pneumoperitoneum obtained. An 8 mm Optiview was then used to enter the peritoneal cavity through a left upper abdominal wall approach. The pelvis was explored. The patient had extensive scarring from prior surgery and radiation therapy. There was quite a bit of distortion of the anatomy. He appeared to have an indirect defect. We elected to convert to an open procedure at this point. Trocar was removed and CO2 released from the peritoneal cavity. A skin incision was made in the left inguinal region with a scalpel and carried down through the subcutaneous tissues with Bovie cautery. The external oblique aponeurosis was identified and opened along the lines of its fibers. The cord structures were encircled with a Kimberly drain. The patient had a moderate-sized indirect hernia sac, which was carefully skeletonized away from the cord structures. A high ligation performed with 3-0 Vicryl. Excess hernia sac and some cord lipoma were sent to Pathology for formal evaluation. The floor was then repaired with a keyhole-shaped prolene mesh. It was secured in place with 2-0 Prolene. Secured medially to the conjoined tendon and laterally to the shelving edge of the inguinal ligament. It was wrapped around the cord structures and secured in standard fashion. The external oblique aponeurosis was then closed using a running 3-0 Vicryl stitch. Rosenda fascia closed with interrupted 3-0 Vicryl. The skin was closed with a running 4-0 Monocryl subcuticular stitch and Dermabond. The patient tolerated the procedure well. There were no immediate complications. Sponge and needle counts were correct. He was taken to recovery in stable condition. /[id number] MD BENIGNO Valdivia/CY / BENIGNO / MODL /[id number] Electronically signed by Cecille, [facility] Conversion Bacteriologist Dairy Cerner at 06/23/2022 8:21 PM CDT documented in this encounter Plan of Treatment Not on file documented as of this encounter Visit Diagnoses Not on filedocumented in this encounter Care Teams Data Manager Relationship Specialty Start Date End Date Bruce Garcia MD [address] [facility] [address] [place] [address] Medical Oncologist Hematology and Oncology 05/05/22 Raya Eaton, PAVictoria [address] [place] [address] Physician Shopper'S Aide Oncology 05/05/22 Luz Suarez, RN Nurse Navigator Oncology 07/02/22 Berkley Berry RN Registered Nurse Oncology 07/02/22 documented as of this encounter
--- OUTSIDE RECORDS SUMMARY | 2024-08-25 13:45 | XMS_ITS | Encounter Summary ---
Author Organization [employer] Address [address] [place] [address] Care Team Providers Care Refractory Tile Helper Name Role Phone Bruce Garcia MD Unavailable Raya Eaton PA-C Unavailable [phone] Luz Suarez RN Unavailable Unavailable Close, Berkley Girard RN Unavailable Unavailable Encounter Details Date Type Department Care Team (Late st Contact Info) Description 07/27/2019 Transcribed Document [facility] [place] [address] [place] [address] ProviderJarret MD [address] [place] [address] Social History Tobacco Use Types Packs/Day Years Used Date Smoking Tobacco: Never Assessed Sex and Gender Information Value Date Recorded Sex Assigned at Not on file Legal Sex Male 5:24 PM CDT Gender Identity Not on file Sexual Orientation Not on file documented as of this encounter Miscellaneous Notes * Cerner Conversion Note - Jarret ProviderMD - 07/27/2019 1:11 PM CDT [facility] Main OR PostOp Summary Primary Physician: TAHIRA PARSONS MD-SUR Finalized Date/Time: 07/27/19 16:22:49 Pt. Name: RENE TORIBIO/Sex: 1945 Male Med Rec #: [id number] Physician: TAHIRA PARSONS MD-SUR Financial #: [id number] Pt. Type: O Room/Bed: Admit/Disch: 07/27/19 10:27:00 - 07/27/19 15:54:00 Institution: [facility] Main OR PostOp Case Times Entry 1 In PACU II 07/27/19 15:20:00 Ready for PACU II 07/27/19 15:54:00 Discharge Discharge from PACU 07/27/19 15:54:00 II Last Modified By: Summer Servin RN 07/27/19 16:22:47 Finalized By: Summer Servin, RN Document Signatures Signed By: Summer Servin RN 07/27/19 16:22 Electronically signed by Cecille [facility] Conversion Biochemical Development Engineer Cerner at 06/23/2022 8:05 PM CDT documented in this encounter Plan of Treatment Not on file documented as of this encounter Visit Diagnoses Not on filedocumented in this encounter Care Teams Refractory Tile Helper Relationship Specialty Start Date End Date Bruce Garcia MD [address] [place] [address] Medical Oncologist Hematology and Oncology 05/05/22 Raya Eaton, PA-C [address] [facility] [address] [facility] [address] [place] [id number] Physician Drop Machine Operator Oncology 05/05/22 Luz Suarez, SHERI Nurse Navigator Oncology 07/02/22 Berkley Berry RN Registered Nurse Oncology 07/02/22 documented as of this encounter
--- OUTSIDE RECORDS SUMMARY | 2024-08-25 13:45 | XMS_ITS | Clinical Summary ---
Author Organization [facility] Address [facility] [place] [address] Care Team Providers Care Auto Body Worker Name Role Phone Samantha Jaquez Primary Care Provider [phone] Allergies No known active allergies Medications abiraterone (ZYTIGA) 500 mg tablet 1 Active glucosamine sulfate 500 mg tablet glucosamine sulfate 500 mg tablet Active tamsulosin (FLOMAX) 0.4 mg capsule daily. Active bicalutamide (CASODEX) 50 mg chemo tablet 1 Active predniSONE (DELTASONE) 5 mg tablet 1 Active atorvastatin (Lipitor) 10 mg tablet Lipitor 10 mg tablet Every night at bedtime Active bisoproloL-hydr ochlorothiazide (Ziac) 10-6.25 mg per tablet Ziac 10 mg-6.25 mg tablet Daily Active fluticasone propionate (FLONASE) 50 mcg/actuation nasal spray fluticasone propionate 50 mcg/actuation nasal spray,suspension Active sennosides (SENNA ORAL) senna Active diclofenac sodium 1 % gelIndications: Strain of thoracic paraspinal muscles excluding T1 and T2 levels, initial encounter Apply 4 g topically 4 times a day as needed (pain). 100 g 1 Active Active Problems No known active problems Social History Tobacco Use Types Packs/Day Years Used Date Smoking Tobacco: Never Assessed Sex and Gender Information Value Date Recorded Sex Assigned at Not on file Legal Sex Male 8:53 AM CDT Gender Identity Not on file Sexual Orientation Not on file Last Filed Vital Signs Vital Sign Reading Time Taken Comments Blood Pressure 136/84 11/02/2020 10:09 AM CDT Pulse 71 11/02/2020 10:09 AM CDT Temperature 36.7 C (98.1 F) 11/02/2020 10:09 AM CDT Respiratory Rate 12 11/02/2020 10:09 AM CDT Oxygen Saturation 98% 11/02/2020 10:09 AM CDT Inhaled Oxygen Concentration - - Weight 97.5 kg (215 lb) 11/02/2020 10:09 AM CDT Height 180.3 cm (5' 11 ) 11/02/2020 10:09 AM CDT Body Mass Index 29.99 11/02/2020 10:09 AM CDT Plan of Treatment Health Maintenance Due Date Last Done Comments Creatinine Level 1945 Estimated Glomerular Filtration Rate (eGFR) 1945 Lipid Panel 1945 Potassium Level 1945 eGFR/Creatinine Level 1945 Hematocrit Level 08[birth year]30[birth year]1948 Hepatitis C Screening 08/30/1966 DTaP,Tdap,and Td Vaccines (1 - Tdap) 08/30/1972 CT Colonography 08/30/1992 Cologuard (FIT-DNA) 08/30/1992 Colonoscopy 08/30/1992 Colorectal Cancer Screening 08/30/1992 Fecal Immunochemical Test (FIT) 08/30/1992 Sigmoidoscopy 08/30/1992 Pneumococcal Vaccine: 50+ Years (1 of 1 - PCV) 08/30/1997 Zoster Vaccine (1 of 2) 08/30/1997 Annual Preventive Visit 08/30/2012 RSV Vaccines (1 - 1-dose 75+ series) 08/30/2022 COVID-19 Vaccine ( season) 2023 01/16/2022, 12/24/2020, 05/01/2020, Additional history exists Influenza Vaccine (Season Ended) 2024 02/16/2022 HIB Vaccines Aged Out No longer eligi ble based on patient's age to complete this topic Hepatitis B Vaccines Aged Out No long er eligible based on patient's age to complete this topic Meningococcal ACWY Vaccine Aged Out N o longer eligible based on patient's age to complete this topic Meningococcal B Vaccine Aged Out No l onger eligible based on patient's age to complete this topic Insurance [employer] MEDICARE Care Teams Auto Body Worker Relationship Specialty Start Date End Date Samantha Jaquez PA [address] [place] [address] PCP - General Physician Shell Maker Lockstitch 11/02/20
--- OUTSIDE RECORDS SUMMARY | 2024-08-25 13:45 | XMS_ITS | Encounter Summary ---
Author Organization [employer] Address [address] [place] [address] Care Team Providers Care Bowling Alley Floors Installer Name Role Phone Bruce Garcia MD Unavailable Raya Eaton PA-C Unavailable [phone] Luz Suarez RN Unavailable Unavailable Close, Berkley Girard RN Unavailable Unavailable Encounter Details Date Type Department Care Team (Late st Contact Info) Description 07/27/2019 Transcribed Document [facility] [place] Family Medicine [address] [place] [address] ProviderJarret MD [address] [place] [address] Social History Tobacco Use Types Packs/Day Years Used Date Smoking Tobacco: Never Assessed Sex and Gender Information Value Date Recorded Sex Assigned at Not on file Legal Sex Male 5:24 PM CDT Gender Identity Not on file Sexual Orientation Not on file documented as of this encounter Miscellaneous Notes * Cerner Conversion Note - Jarret ProviderMD - 07/27/2019 1:11 PM CDT [facility] Main OR Preop Summary Primary Physician: TAHIRA PARSONS MD-SUR Finalized Date/Time: 07/27/19 14:30:11 Pt. Name: RENE TORIBIO/Sex: 1945 Male Med Rec #: [id number] Physician: TAHIRA PARSONS MD-SUR Financial #: [id number] Pt. Type: O Room/Bed: Admit/Disch: 07/27/19 10:27:00 - Institution: [facility] PreOp Case Times Entry 1 In Preop 07/27/19 10:39:00 Ready for Holding n/a Room Patient Ready for 07/27/19 11:30:00 Surgery Patient Out of Preop 07/27/19 12:30:00 Patient Out of n/a Holding Room Last Modified By: Laly Joe Nurse Ase Master Mechanic 07/27/19 14:30:09 [facility] PreOp Case Times Audit 07/27/19 14:30:09 Ferris Wheel Operator: ARLYN Modifier: [id number] <*> Patient Out of Preop 07/27/19 10:49:00 1 <+> Patient Ready for Surgery Finalized By: Laly Joe, Nurse Dispensing Optician Signatures Signed By: Laly Joe Nurse 07/27/19 14:30 Electronically signed by Cecille [facility] Conversion Rodding Machine Tender Cerner at 06/23/2022 8:18 PM CDT documented in this encounter Plan of Treatment Not on file documented as of this encounter Visit Diagnoses Not on filedocumented in this encounter Care Teams Bowling Alley Floors Installer Relationship Specialty Start Date End Date Bruce Garcia MD [address] [facility] [address] [place] [address] Medical Oncologist Hematology and Oncology 05/05/22 Raya Eaton, PA-C [address] [facility] [address] [facility] [address] [place] [address] Physician Chronometer Assembler And Adjuster Oncology 05/05/22 Luz Suarez, RN Nurse Navigator Oncology 07/02/22 Berkley Berry RN Registered Nurse Oncology 07/02/22 documented as of this encounter
--- OUTSIDE RECORDS SUMMARY | 2024-08-25 13:45 | XMS_ITS | Encounter Summary ---
Author Organization [facility] [employer] Address [address] [place] [address] Care Team Providers Care Whiting Can Worker Name Role Phone Bruce Garcia MD Unavailable Raya Eaton PA-C Unavailable [phone] Luz Suarez RN Unavailable Unavailable Close, Berkley Girard RN Unavailable Unavailable Encounter Details Date Type Department Care Team (Late st Contact Info) Description 07/27/2019 Transcribed Document [facility] [place] [facility] [address] [place] [address] ProviderJarret MD [address] [place] [address] Social History Tobacco Use Types Packs/Day Years Used Date Smoking Tobacco: Never Assessed Sex and Gender Information Value Date Recorded Sex Assigned at Not on file Legal Sex Male 5:24 PM CDT Gender Identity Not on file Sexual Orientation Not on file documented as of this encounter Miscellaneous Notes * Cerner Conversion Note - Jarret ProviderMD - 07/27/2019 1:11 PM CDT [facility] Main OR IntraOp Summary Primary Physician: TAHIRA PARSONS MD-SUR Finalized Date/Time: 07/30/19 13:00:13 Pt. Name: MIGUEL ÁNGEL BOSTON/Sex: 1945 Male Med Rec #: [id number] Physician: TAHIRA PARSONS MD-SUR Financial #: [id number] Pt. Type: O Room/Bed: Admit/Disch: 07/27/19 10:27:00 - 07/27/19 15:54:00 Institution: [facility] IntraOp Case Attendance Entry 1 Entry 2 Entry 3 Case Attendee TAHIRA PARSONS MD-TIMOTEO ROCHA MD-Octavia Clay, Leland Role Performed Surgeon/Proceduralist, Anesthesiologist of ASSEMBLER MOLDED FRAMES/Nurse Patient'S Librarian First Record Time In 07/27/19 12:33:00 07/27/19 12:33:00 07/27/19 12:33:00 Time Out 07/27/19 14:04:00 07/27/19 14:04:00 07/27/19 14:04:00 Procedure Hernia Repair Hernia Repair Hernia Repair Inguinal(Left) Inguinal(Left) Inguinal(Left) Other Attendee Superficial Wound Closed By: Last Modified By: Bruce Mcintosh RN Harover, Michael, RN Harover, Michael, RN 07/27/19 14:04:43 07/27/19 14:04:43 07/27/19 14:04:43 Entry 4 Entry 5 Entry 6 Case Attendee OTHER, ATTENDEE #1 TED GREY Robin A Director Of Cloud Services Role Performed Quality Assurance Practice Manager, First Scrub, First Time In 07/27/19 12:33:00 07/27/19 12:33:00 07/27/19 12:33:00 Time Out 07/27/19 14:04:00 07/27/19 14:04:00 07/27/19 14:04:00 Procedure Hernia Repair Hernia Repair Hernia Repair Inguinal(Left) Inguinal(Left) Inguinal(Left) Other Attendee Tony Baldwin - ASSEMBL[employer] Student Superficial Wound Closed By: Last Modified By: Bruce Mcintosh RN Harover, Michael, RN Harover, Michael, RN 07/27/19 14:04:43 07/27/19 14:04:43 07/27/19 14:04:43 Entry 7 Entry 8 Entry 9 Case Attendee Jolene Herman RN Harover, Michael, Kiley Rollins REP-ERVIN Role Performed Oracle Programmer, First Oracle Programmer, Second Category Consultant, Ancillary Time In 07/27/19 12:33:00 07/27/19 13:05:00 07/27/19 12:33:00 Time Out 07/27/19 14:04:00 07/27/19 14:04:00 07/27/19 14:04:00 Procedure Hernia Repair Hernia Repair Hernia Repair Inguinal(Left) Inguinal(Left) Inguinal(Left) Other Attendee Orientee [facility] Superficial Wound Closed By: Last Modified By: Bruce Mcintosh RN Harover, Michael, RN Harover, Michael, RN 07/27/19 14:04:43 07/27/19 14:04:43 07/27/19 14:04:43 Entry 10 Case Attendee OTHER, ATTENDEE #2 Role Performed Category Consultant, Ancillary Time In 07/27/19 12:33:00 Time Out 07/27/19 14:04:00 Procedure Hernia Repair Inguinal(Left) Other Attendee Bernard Paez, [facility]SI Superficial Wound Closed By: Last Modified By: Bruce Mcintosh RN 07/27/19 14:04:43 [facility] IntraOp Case Attendance Audit 07/27/19 14:04:43 Electrical Appliance Servicer: [id number] Modifier: [id number] 1 <+> Time Out 1 <*> Procedure Hernia Repair Inguinal(Left) 2 <+> Time Out 2 <*> Procedure Hernia Repair Inguinal(Left) 3 <+> Time Out 3 <*> Procedure Hernia Repair Inguinal(Left) 4 <+> Time Out 4 <*> Procedure Hernia Repair Inguinal(Left) 5 <+> Time Out 5 <*> Procedure Hernia Repair Inguinal(Left) 6 <+> Time Out 6 <*> Procedure Hernia Repair Inguinal(Left) 7 <+> Time Out 7 <*> Procedure Hernia Repair Inguinal(Left) 8 <+> Time Out 8 <*> Procedure Hernia Repair Inguinal(Left) 9 <+> Time Out 9 <*> Procedure Hernia Repair Inguinal(Left) 10 <+> Time Out 10 <*> Procedure Hernia Repair Inguinal(Left) 07/27/19 13:52:33 Electrical Appliance Servicer: [id number] Modifier: [id number] <+> 1 Procedure <+> 2 Procedure <+> 3 Procedure <+> 4 Procedure <+> 5 Procedure <+> 6 Procedure <+> 7 Procedure <+> 8 Procedure <+> 9 Procedure <+> 10 Procedure 07/27/19 13:52:16 Electrical Appliance Servicer: [id number] Modifier: [id number] 1 <-> Procedure Hernia Repair Inguinal Robotic(Left) 2 <-> Procedure Hernia Repair Inguinal Robotic(Left) 3 <-> Procedure Hernia Repair Inguinal Robotic(Left) 4 <-> Procedure Hernia Repair Inguinal Robotic(Left) 5 <-> Procedure Hernia Repair Inguinal Robotic(Left) 6 <-> Procedure Hernia Repair Inguinal Robotic(Left) 7 <-> Procedure Hernia Repair Inguinal Robotic(Left) 8 <-> Procedure Hernia Repair Inguinal Robotic(Left) 9 <-> Procedure Hernia Repair Inguinal Robotic(Left) 10 <-> Procedure Hernia Repair Inguinal Robotic(Left) 07/27/19 13:34:12 Electrical Appliance Servicer: [id number] Modifier: [id number] 1 <*> Procedure Hernia Repair Inguinal Robotic(Left), Hernia Repair Inguinal Robotic(Left) 2 <*> Procedure Hernia Repair Inguinal Robotic(Left), Hernia Repair Inguinal Robotic(Left) 3 <*> Procedure Hernia Repair Inguinal Robotic(Left), Hernia Repair Inguinal Robotic(Left) 4 <*> Procedure Hernia Repair Inguinal Robotic(Left), Hernia Repair Inguinal Robotic(Left) 5 <*> Procedure Hernia Repair Inguinal Robotic(Left), Hernia Repair Inguinal Robotic(Left) 6 <*> Procedure Hernia Repair Inguinal Robotic(Left), Hernia Repair Inguinal Robotic(Left) 7 <*> Procedure Hernia Repair Inguinal Robotic(Left), Hernia Repair Inguinal Robotic(Left) 8 <*> Procedure Hernia Repair Inguinal Robotic(Left), Hernia Repair Inguinal Robotic(Left) 9 <*> Procedure Hernia Repair Inguinal Robotic(Left), Hernia Repair Inguinal Robotic(Left) 10 <*> Procedure Hernia Repair Inguinal Robotic(Left), Hernia Repair Inguinal Robotic(Left) 07/27/19 13:33:52 Electrical Appliance Servicer: [id number] Modifier: [id number] 1 <*> Procedure Hernia Repair Inguinal Robotic(Left) 2 <*> Procedure Hernia Repair Inguinal Robotic(Left) 3 <*> Procedure Hernia Repair Inguinal Robotic(Left) 4 <*> Procedure Hernia Repair Inguinal Robotic(Left) 5 <*> Procedure Hernia Repair Inguinal Robotic(Left) 6 <*> Procedure Hernia Repair Inguinal Robotic(Left) 7 <*> Procedure Hernia Repair Inguinal Robotic(Left) 8 <*> Procedure Hernia Repair Inguinal Robotic(Left) 9 <*> Procedure Hernia Repair Inguinal Robotic(Left) 10 <*> Procedure Hernia Repair Inguinal Robotic(Left) 07/27/19 13:32:28 Electrical Appliance Servicer: [id number] Modifier: [id number] <+> 1 Procedure 2 <*> Procedure Hernia Repair Inguinal Robotic(Left) 3 <*> Procedure Hernia Repair Inguinal Robotic(Left) 4 <*> Procedure Hernia Repair Inguinal Robotic(Left) 5 <*> Procedure Hernia Repair Inguinal Robotic(Left) 6 <*> Procedure Hernia Repair Inguinal Robotic(Left) 7 <*> Procedure Hernia Repair Inguinal Robotic(Left) 8 <*> Procedure Hernia Repair Inguinal Robotic(Left) 9 <*> Procedure Hernia Repair Inguinal Robotic(Left) 10 <*> Procedure Hernia Repair Inguinal Robotic(Left) 07/27/19 13:23:00 Electrical Appliance Servicer: [id number] Modifier: [id number] <+> 6 Procedure 7 <+> Time In 7 <*> Procedure Hernia Repair Inguinal Robotic(Left) 8 <*> Procedure Hernia Repair Inguinal Robotic(Left) 9 <+> Time In 9 <*> Procedure Hernia Repair Inguinal Robotic(Left) 10 <+> Time In 10 <*> Procedure Hernia Repair Inguinal Robotic(Left) 07/27/19 13:22:59 Electrical Appliance Servicer: [id number] Modifier: [id number] 2 <+> Time In 2 <*> Procedure Hernia Repair Inguinal Robotic(Left) 3 <+> Time In 3 <*> Procedure Hernia Repair Inguinal Robotic(Left) 4 <+> Time In 4 <*> Procedure Hernia Repair Inguinal Robotic(Left) 5 <+> Time In 5 <*> Procedure Hernia Repair Inguinal Robotic(Left) 6 <+> Time In 6 <-> Procedure Hernia Repair Inguinal Robotic(Left) 07/27/19 13:22:53 Electrical Appliance Servicer: [id number] Modifier: [id number] <+> 1 Time In <+> 2 Case Attendee <+> 2 Role Performed <+> 2 Procedure <+> 3 Case Attendee <+> 3 Role Performed <+> 3 Procedure <+> 4 Case Attendee <+> 4 Role Performed <+> 4 Procedure <+> 4 Other Attendee <+> 5 Case Attendee <+> 5 Role Performed <+> 5 Procedure <+> 6 Case Attendee <+> 6 Role Performed <+> 6 Procedure <+> 7 Case Attendee <+> 7 Role Performed <+> 7 Procedure <+> 8 Case Attendee <+> 8 Role Performed <+> 8 Time In <+> 8 Procedure <+> 8 Other Attendee <+> 9 Case Attendee <+> 9 Role Performed <+> 9 Procedure <+> 9 Other Attendee <+> 10 Case Attendee <+> 10 Role Performed <+> 10 Procedure <+> 10 Other Attendee [facility] IntraOp Case Times Entry 1 Patient In Room Time 07/27/19 12:33:00 Out Room Time 07/27/19 14:04:00 Anesthesia Start Time 07/27/19 12:33:00 Stop Time 07/27/19 14:04:00 Surgery / Procedure Times Start Time 07/27/19 13:11:00 Stop Time 07/27/19 14:01:00 Last Modified By: Bruce Mcintosh RN 07/27/19 14:04:41 [facility] IntraOp Case Times Audit 07/27/19 14:04:41 Electrical Appliance Servicer: [id number] Modifier: [id number] <+> 1 Out Room Time <+> 1 Stop Time 07/27/19 14:01:59 Electrical Appliance Servicer: [id number] Modifier: [id number] <+> 1 Stop Time [facility] IntraOp Cautery Entry 1 ESU Identification Cautery Type Monopolar ESU ID Number [id number] ID Type Hospital Number Cautery Settings Cut Setting 3 Coag Setting 3 ESU Grounding Pad Ground Pad Type Adult Grounding Pad Site Right thigh Grounding Pad Site posterior Comment Grounding Pad Jolene Herman RN Applied By Grounding Pad Site Warm, Dry, Intact Skin Condition Before Cautery Grounding Pad Site Unchanged Skin Condition After Cautery Last Modified By: Bruce Mcintosh RN 07/27/19 13:24:49 [facility] IntraOp Communication Entry 1 Entry 2 Communication To Family/Significant other Family/Significant other Comment start Communication By Jolene Herman, Jolene Osorio, SHERI Date and Time 07/27/19 13:20:00 07/27/19 13:56:00 Last Modified By: Bruce Mcintosh RN Harover, Michael, RN 07/27/19 13:26:23 07/27/19 14:02:21 [facility] IntraOp Communication Audit 07/27/19 14:02:21 Electrical Appliance Servicer: [id number] Modifier: [id number] <+> 2 Communication By <+> 2 Date and Time <+> 2 Communication To [facility] IntraOp Counts Verification Entry 1 Procedure Hernia Repair Inguinal(Left) Count Info Count Type Sponge, Sharps, Miscellaneous Counts Verification Baseline/pre-procedure Sequence Count Results Correct, surgeon notified Counts Performed By Count Performed By Tr Mobley, Surgical (Scrub) Category Consultant Count Performed By Jolene Herman RN (RN) Last Modified By: Bruce Mcintosh RN 07/27/19 13:52:34 [facility] IntraOp Counts Verification Audit 07/27/19 13:52:34 Electrical Appliance Servicer: [id number] Modifier: [id number] <+> 1 Procedure 07/27/19 13:52:16 Electrical Appliance Servicer: [id number] Modifier: [id number] 1 <-> Procedure Hernia Repair Inguinal Robotic(Left) 07/27/19 13:34:13 Electrical Appliance Servicer: [id number] Modifier: [id number] 1 <*> Procedure Hernia Repair Inguinal Robotic(Left), Hernia Repair Inguinal Robotic(Left) 07/27/19 13:33:54 Electrical Appliance Servicer: [id number] Modifier: [id number] 1 <*> Procedure Hernia Repair Inguinal Robotic(Left) [facility] IntraOp Counts Final Entry 1 Procedure Hernia Repair Inguinal(Left) Final Count Info Count Type Sponge, Sharps, Miscellaneous Counts Verification Skin Closure/end of Sequence procedure Count Results Correct, surgeon notified Counts Performed By Count Performed By Tr Mobley, Surgical (Scrub) Category Consultant Count Performed By Bruce Mcintosh RN (RN) Last Modified By: Bruce Mcintosh RN 07/27/19 13:56:27 [facility] IntraOp Delays Entry 1 Delay Reason OR staff not available Duration 15 Minute(s) Last Modified By: Bruce Mcintosh RN 07/27/19 13:14:42 [facility] IntraOp Departure from OR Entry 1 Integumentary Assessment Integumentary WDL Assessment WDL Transfer/Handoff Transfer to PACU Phase I Handoff Method Bedside/Face to face, Phone call, Online nursing summary Post-op Transport Stretcher/Gurney Via Patient Transport TED GREY, Accompanied by Octavia Daniels Crna Last Modified By: Bruce Mcintosh RN 07/27/19 13:28:18 [facility] IntraOp Departure from OR Audit 07/27/19 13:28:18 Electrical Appliance Servicer: [id number] Modifier: [id number] <+> 1 Handoff Method [facility] IntraOp Dressing and Packing Entry 1 Type Dressing Location OPSITE Wound Dressing Item Skin Closure Glue Applied By TED GREY Last Modified By: Bruce Mcintosh RN 07/27/19 14:01:19 [facility] IntraOp Fire Risk Assessment Entry 1 Fire Info Surgical Site or 0- No Incision Above the Xyphoid Open O2 Source 0- No (Mask or Cannula) Available Ignition 1- Yes (ESU, Laser, Light Source) Fire Risk 1 Assessment Score Fire Score Fire Risk Yes Assessment Complete Fire Risk Jolene Herman RN Assessment Verified By Fire Risk 07/27/19 12:38:00 Assessment Verified Date/Time Fire Risk Standard Fire Yes Safety Precautions Followed Last Modified By: Bruce Mcintosh RN 07/27/19 13:28:33 [facility] IntraOp Fire Risk Assessment Audit 07/27/19 13:28:33 Electrical Appliance Servicer: [id number] Modifier: [id number] <+> 1 Fire Risk Assessment Verified Date/Time [facility] IntraOp General Case Ccie 1 Case Information OR OR 12 [facility] Case Level 1 Room Verified Yes Wound Class I - Clean Specialty SN General Anesthesia Type General ASA Class 2 Diagnosis Preop Diagnosis left inguinal hernia Postop Same As Preop No Postop Diagnosis see MD post operative notes Last Modified By: Bruce Mcintosh RN 07/27/19 13:29:48 [facility] IntraOp Implant Log Entry 1 Type Implant (Synthetic) Implant Log Implant MESH JORDANA PRE-SHP Identification [id number] Description Implant Quantity 1 Implant Site op site - left groin Implant [id number] Identification Lot Number Implant [employer] Identification Roll Up Guider Operator Name: Implant [id number] Identification Catalog Number Implant Has an Yes Expiration Date Implant Expiration 06/17/21 Date Tissue Implant Last Modified By: Bruce Mcintosh RN 07/27/19 13:42:57 [facility] IntraOp Intraoperative Assessment Entry 1 Handoff Method Online nursing summary Valid History / Yes Physical in Chart Preoperative Yes Checklist Reviewed/Evaluated Allergies Reviewed Yes Patient is Latex No Sensitive Isolation Contact Precautions Noted Level of WDL Consciousness (WDL = Alert, Oriented to Person, Place, and Time) Skin Assessment No Verified Present Upon IVs Arrival to OR Last Modified By: Bruce Mcintosh RN 07/27/19 13:30:06 [facility] IntraOp Intraoperative Equipment Entry 1 Type Monitoring Equipment Equipment Tatyana Suction System ID Number [id number] Intraop Monitoring Blood Pressure Non-Invasive BP Device Source Blood Pressure Arm, right upper Location Pulse Oximeter Hand, left Probe Site Antiembolic Devices Antiembolic Devices Sequential compression device, knee high Antiembolic Device Bilateral Location Antiembolic Device [id number] ID Number Antiembolic Device SCD'S ON AND WORKING Setting PRIOR TO INDUCTION Scopes Photo/Video Documentation Photo No Video No Last Modified By: Bruce Mcintosh RN 07/27/19 13:31:40 [facility] IntraOp Medication Admin Entry 1 Medication/Irrigant Marcaine 0.5% w/ epinephrine 1:200,000 30ml vial - [id number] Route of local Administration Dose Dose 26 Unit of Measure ml Administered By TAHIRA PARSONS MD-SUR Procedure Irrigation Last Modified By: Bruce Mcintosh RN 07/27/19 13:49:34 [facility] IntraOp Patient Positioning Entry 1 Procedure Hernia Repair Inguinal(Left) Body Position Supine Left Arm Position Tucked and padded at side Right Arm Position Tucked and padded at side Left Leg Position Uncrossed, parallel Right Leg Position Uncrossed, parallel Feet Uncrossed Yes Pressure Points Yes Checked Positioning Devices Head Rest, Safety Strap, Thighs, Pad, Arm Device Position FOAM POSITIONING MATTRESS Positioned By Octavia Daniels Crna, [place], Hazel, SHERI, TED GREY, TAHIRA PARSONS MD-TREVOR Position Verified Positioning Yes Verified by Anesthesia Positioning Yes Verified by Surgeon Last Modified By: Bruce Mcintosh RN 07/27/19 13:52:34 [facility] IntraOp Patient Positioning Audit 07/27/19 13:52:34 Electrical Appliance Servicer: [id number] Modifier: [id number] <+> 1 Procedure 07/27/19 13:52:17 Electrical Appliance Servicer: [id number] Modifier: [id number] 1 <-> Procedure Hernia Repair Inguinal Robotic(Left) 07/27/19 13:34:14 Electrical Appliance Servicer: [id number] Modifier: [id number] 1 <*> Procedure Hernia Repair Inguinal Robotic(Left), Hernia Repair Inguinal Robotic(Left) 07/27/19 13:33:55 Electrical Appliance Servicer: [id number] Modifier: [id number] 1 <*> Procedure Hernia Repair Inguinal Robotic(Left) [facility] IntraOp Sign In Entry 1 Patient, Site, Yes Procedure Identified Surgical Consent Yes Confirmed Relevant Surgical Yes Documents Available Surgical Site Yes Marked by person performing procedure Anesthesia Machine Yes Check Completed Medication Checks Yes Completed Allergies Yes Airway Difficult Yes Airway/Aspiration Risk Difficult Yes Airway/Aspiration Intervention Equipment Available Blood Loss Risk No Blood Loss No Intervention Equipment Prepared and Ready Blood Identifiers Not applicable Verified Per Policy Hypothermia Risk Yes Warming Measures Yes Taken Last Modified By: Bruce Mcintosh RN 07/27/19 13:32:41 [facility] IntraOp Sign Out Entry 1 RN Confirmation Surgical Yes Procedure(s) Identified Instrument, Sponge Yes and Sharps Counts Correct/Documented Equipment Problems N/A Documented Specimen Labeled Yes Correctly Urinary Catheter N/A Documented in IView Escobar Patient Yes Recovery Concerns Reviewed with Anesthesia Provider, Surgeon and RN Escobar Patient Yes Management Concerns Reviewed with Anesthesia Provider, Surgeon and RN Safety Checklist Yes Elements Complete? RN Sign Out Bruce Mcintosh RN Signature RN Sign Out 07/27/19 14:05:00 Signature Date/Time Plan of Care Outcome - Fire Risk OUTCOME STATEMENT: Goal met Patient is free from injury related to surgical fire Plan of Care Outcome - Pt Positioning OUTCOME STATEMENT: Goal met Absence of signs and symptoms of positioning injury. Plan of Care Outcome - Skin Prep OUTCOME STATEMENT: Goal met Intraoperative care is consistent with measures to prevent infection Plan of Care Outcome - Xray/Images OUTCOME STATEMENT: N/A Absence of observable signs or symptoms of radiation injury Plan of Care Outcome - Counts OUTCOME STATEMENT: Goal met Absence of signs and symptoms of injury related to extraneous objects Last Modified By: Bruce Mcintosh RN 07/27/19 14:05:09 [facility] IntraOp Sign Out Audit 07/27/19 14:05:09 Electrical Appliance Servicer: [id number] Modifier: [id number] <+> 1 RN Sign Out Signature <+> 1 RN Sign Out Signature Date/Time <+> 1 Urinary Catheter Documented in IView [facility] IntraOp Skin Prep Entry 1 Procedure Hernia Repair Inguinal(Left) Prescribed Yes Pre-Surgical Prep Completed Prep Area ABDOMEN AND OPERTIVE SIDE GROIN Intraop Prep Integumentary WDL Assessment WDL Prep Agents Chloraprep Prep by TAHIRA PARSONS MD-TREVOR Hair Removal Methods No hair removal performed Last Modified By: Bruce Mcintosh RN 07/27/19 13:52:35 [facility] IntraOp Skin Prep Audit 07/27/19 13:52:35 Electrical Appliance Servicer: [id number] Modifier: [id number] <+> 1 Procedure 07/27/19 13:52:17 Electrical Appliance Servicer: [id number] Modifier: [id number] 1 <-> Procedure Hernia Repair Inguinal Robotic(Left) 07/27/19 13:34:14 Electrical Appliance Servicer: [id number] Modifier: [id number] 1 <*> Procedure Hernia Repair Inguinal Robotic(Left), Hernia Repair Inguinal Robotic(Left) 07/27/19 13:33:55 Electrical Appliance Servicer: [id number] Modifier: [id number] 1 <*> Procedure Hernia Repair Inguinal Robotic(Left) [facility] IntraOp Surgical Procedures Entry 1 Procedure Hernia Repair Inguinal Modifiers Left Additional attempt lap/robot Procedure convert to open left Description inguinal hernia repair with mesh Primary Procedure Yes Primary Surgeon TAHIRA PARSONS MD-SUR Start 07/27/19 13:11:00 Stop 07/27/19 14:01:00 Anesthesia Type General Specialty SN General Wound Class I - Clean Last Modified By: Bruce Mcintosh RN 07/27/19 14:02:01 [facility] IntraOp Surgical Procedures Audit 07/27/19 14:02:01 Electrical Appliance Servicer: [id number] Modifier: [id number] <+> 1 Stop 07/27/19 13:52:28 Electrical Appliance Servicer: [id number] Modifier: [id number] 1 <*> Procedure Hernia Repair Inguinal Robotic 1 <*> Additional Procedure Description (ROBOTIC ASSISTED LAPAROSCOPIC LT INGUINAL HERNIA REPAIR WITH MESH) 07/27/19 13:34:29 Electrical Appliance Servicer: [id number] Modifier: [id number] 1 <*> Procedure Hernia Repair Inguinal Robotic 1 <*> Primary Procedure Yes 1 <*> Modifiers Left 1 <*> Primary Surgeon TAHIRA PARSONS MD-SUR 1 <*> Specialty 1 <*> Start 07/27/19 13:11:00 1 <*> Wound Class I - Clean 1 <*> Anesthesia Type General 1 <*> Additional Procedure Description (ROBOTIC ASSISTED LAPAROSCOPIC LT INGUINAL HERNIA REPAIR WITH MESH) Entry 2 was deleted. Higher numbered entries shifted one position to fill the gap. <-> 2 Procedure Hernia Repair Inguinal Robotic <-> 2 Primary Procedure Yes <-> 2 Modifiers Left <-> 2 Primary Surgeon TAHIRA PARSONS MD-SUR <-> 2 Specialty <-> 2 Start 07/27/19 13:11:00 <-> 2 Wound Class I - Clean <-> 2 Anesthesia Type General <-> 2 Additional Procedure Description LT INGUINAL HERNIA REPAIR WITH MESH 07/27/19 13:33:46 Electrical Appliance Servicer: [id number] Modifier: [id number] <+> 2 Procedure <+> 2 Primary Procedure <+> 2 Modifiers <+> 2 Primary Surgeon <+> 2 Specialty <+> 2 Start <+> 2 Wound Class <+> 2 Anesthesia Type <+> 2 Additional Procedure Description [facility] IntraOp Temp Regulation Devices Entry 1 Temp Regulation Temperature Forced Air Warming Regulation Device device, Warm blankets Temperature 74066 Regulation Device Serial/Unit Number Temperature Upper body Regulation Site Temperature Device SET AND MONITORED BY Setting ANESTHESIA Temperature Octavia Daniels Crna Regulation Device Applied by Last Modified By: Bruce Mcintosh RN 07/27/19 13:34:42 [facility] IntraOP Time Out Entry 1 Procedure to be Hernia Repair Performed Inguinal(Left) Time Out Time Out Pause Time 07/27/19 13:10:00 All activity Yes suspended (unless life threatening emergency) Team Verbally Correct patient Confirms Information identity, Correct side and site are marked, Consent form is present and accurate, Agreement on the procedure to be done, Correct patient position, Confirm antibiotics have been administered, Confirm the skin prep has dried, Confirm prosthesis/implant/devic e is present, Performed in location of procedure after prepped/draped Antibiotic Yes Prophylaxis Administered Or In Progress Within the Last 60 Minutes Beta Jesus N/A Administered Venous N/A Thromboembolism Prophylaxis Required Anticipated Critical Events Surgeon None expected Anesthesia Provider None expected Nursing Assures Sterility of instruments Essential Imaging Yes Labeled and Displayed Last Modified By: Bruce Mcintosh RN 07/27/19 13:52:35 [facility] IntraOP Time Out Audit 07/27/19 13:52:35 Electrical Appliance Servicer: [id number] Modifier: [id number] <+> 1 Procedure to be Performed 07/27/19 13:52:17 Electrical Appliance Servicer: [id number] Modifier: [id number] 1 <-> Procedure to be Performed Hernia Repair Inguinal Robotic(Left) 07/27/19 13:36:28 Electrical Appliance Servicer: [id number] Modifier: [id number] 1 <+> Beta Jesus Administered 1 <+> All activity suspended (unless life threatening emergency) 1 <+> Venous Thromboembolism Prophylaxis Required 1 <+> Antibiotic Prophylaxis Administered Or In Progress Within the Last 60 Minutes 1 <+> Surgeon 1 <+> Anesthesia Provider 1 <+> Nursing Assures 1 <+> Essential Imaging Labeled and Displayed 1 <+> Time Out Pause Time 1 <*> Procedure to be Performed Hernia Repair Inguinal Robotic(Left) 1 <+> Team Verbally Confirms Information Case Comments <None> Finalized By: VIKKI CORONA Document Signatures Signed By: Bruce Mcintosh RN 07/27/19 14:05 VIKKI CORONA 07/30/19 13:00 Unfinalized History Date/Time Username Reason for Unfinalizing Freetext Reason for Unfinalizing 07/30/19 12:58 [email or web address] Correct Billing Electronically signed by [facility] Conversion Cork Floor Installer Cerner at 06/23/2022 8:10 PM CDT documented in this encounter Plan of Treatment Not on file documented as of this encounter Visit Diagnoses Not on filedocumented in this encounter Care Teams Whiting Can Worker Relationship Specialty Start Date End Date Bruce Garcia MD [address] [facility] [address] [place] [address] Medical Oncologist Hematology and Oncology 05/05/22 Raya Eaton, PA-C [address] [facility] [address] [address] Physician Plastic Molder Oncology 05/05/22 Luz Suarez, SHERI Nurse Navigator Oncology 07/02/22 Berkley Berry RN Registered Nurse Oncology 07/02/22 documented as of this encounter
--- OUTSIDE RECORDS SUMMARY | 2024-08-25 13:46 | XMS_ITS | Encounter Summary ---
Author Organization [employer] Address [address] [place] [address] Care Team Providers Care Technical Testing Engineer Name Role Phone Bruce Garcia MD Unavailable Raya Eaton PA-C Unavailable [phone] Luz Suarez RN Unavailable Unavailable Close, Berkley Girard RN Unavailable Unavailable Encounter Details Date Type Department Care Team (Late st Contact Info) Description 07/26/2019 Transcribed Document [facility] Family Medicine [address] [place] [address] ProviderJarret MD [address] [employer], [place] [address] Social History Tobacco Use Types Packs/Day Years Used Date Smoking Tobacco: Never Assessed Sex and Gender Information Value Date Recorded Sex Assigned at Not on file Legal Sex Male 5:24 PM CDT Gender Identity Not on file Sexual Orientation Not on file documented as of this encounter Miscellaneous Notes * Cerner Conversion Note - Historical ProviderMD - 07/26/2019 1:51 PM CDT PAT Adult Entered On: 07/26/2019 13:58 EDT Performed On: 07/26/2019 13:51 EDT by MARY Valdovinos RN Height and Weight, Clinical Dosing Height, Feet : 5 ft(Converted to: 152 cm, 60 Inch) Height, Inches : 11 Inch(Converted to: 0 ft 11 Inch, 27.94 cm) Clinical Height : 180.34 cm Clinical Dosing Weight : 87.45 kg Weight, Pounds : 192.4 lb Body Surface Area (BSA) : 2.08 m2 Body Mass Index : 26.9 kg/m2 (HI) [place] Body Weight : 74 kg MARY Valdovinos RN - 07/27/2019 11:12 EDT Height Source : Measured Height Entry Format : [place] Weight Source : Standing scale Weight Entry Format : [place] MARY Valdovinos RN - 07/26/2019 13:51 EDT Health Histories Smoking Status : Never (less than 100 in lifetime; none in last 30 days) Smokeless Tobacco Status : Never MARY Valdovinos RN - 07/26/2019 13:51 EDT Social History (As Of: 07/26/2019 13:58:23 EDT) Tobacco: Smoking Status Never smoker. (Last Updated: 03/03/2016 11:29:33 EST by MATHIEU ORTIZ RN) Alcohol: Alcohol Use History No. (Last Updated: 03/03/2016 11:29:42 EST by MATHIEU ORTIZ RN) Substance Abuse: Drug Use Hx: No. Use in Last 12 Months: No. (Last Updated: 03/03/2016 11:29:49 EST by MATHIEU ORTIZ RN) Infectious Disease History Has the patient ever been tested for COVID-19? : Yes, Patient stated results Negative Date of COVID-19 Test : 07/24/2019 COVID19 Screening : No Experiencing Infectious Disease Symptoms : No symptoms Physical contact outside [place] in the last 30 days : No Infectious Disease Symptoms Score : 0 Infectious Disease History : Chicken pox/Shingles, Measles, MRSA Exposure to Contagious Illness : No Tuberculosis Symptoms : None MARY Valdovinos RN - 07/26/2019 13:51 EDT Anesthesia/Transfusion History Family History of Anesthesia Reaction : No prior transfusion(s) Blood Transfusion Acceptable to Patient : Yes Transfusion History : Prior anesthesia without reaction Family History of Anesthesia Reaction : None MARY Valdovinos RN - 07/26/2019 13:51 EDT Advance Directive Copy Advance Directive Verified/on Chart : Yes Patient has Advance Directive *Q : Yes, Advance Directive with the patient MARY Valdovinos RN - 07/27/2019 11:12 EDT Advance Directive Type : Living will MARY Valdovinos RN - 07/26/2019 13:51 EDT [place] Suicide Severity Rating Scale (C-SSRS) CSSRS Past Month Wish to be : No CSSRS Past Month Suicidal Thoughts : No CSSRS Lifetime Suicide Behavior : No Suicide Severity Rating Score : 0 Suicide Severity Rating : No Additional Care Required at this time MARY Valdovinos RN - 07/26/2019 13:51 EDT Psychosocial History Do You Have a History of the Following? : Patient denies history Currently in Unsafe Situation : No MARY Valdovinos RN - 07/26/2019 13:51 EDT General Info Patient Arrival Date/Time : 07/27/2019 10:39 EDT MARY Valdovinos RN - 07/27/2019 11:12 EDT Preferred Name : Dexter Arrived From : Home Mode of Arrival on Unit : Ambulatory Legal Guardian : Unaccompanied Support Person/Patient Outside Residential Sales Professional : Yes Support Person/Pt Rep Name : Josey Toribio, spouse Support Person/Pt Rep Contact Information : [phone] Want Family/Rep/Phys Notified of Admit : No Emergency Contact #1 : ` Emergency Contact #1 Phone Number : ` Emergency Contact #1 Relationship : ` Emergency Contact #2 : ` Emergency Contact #2 Phone Number : ` Emergency Contact #2 Relationship : ` Primary Language : Cymra[place] Preferred Communication Mode : Verbal Communication Barrier : None MARY Valdovinos RN - 07/26/2019 13:51 EDT Saurav Scale Saurav Sensory Perception : No impairment Saurav Moisture : Rarely moist Saurav Activity : Walks frequently Saurav Mobility : No limitation Saurav Nutrition : Excellent Saurav Friction and Shear : No apparent problem Saurav Score : 23 MARY Valdovinos RN - 07/27/2019 11:12 EDT Sleep Apnea Risk Assmt BMI Greater Than 35 kg/m2 : No Neck Circumference Greater Than 40 cm : No STOP-BANG Sleep Apnea Risk Level Score : 3 MARY Valdovinos RN - 07/27/2019 11:12 EDT Hx of Obstructive Sleep Apnea Diagnosis : No Snore Loudly : No Tired, Fatigued, or Sleepy During Day : No Observed Stopping Breathing During Sleep : No Have/Are Being Treated for Hypertension : Yes Age over 50 Years Old : Yes Gender Male : Yes MARY Valdovinos RN - 07/26/2019 13:51 EDT Electronically signed by Heather Oden Conversion Account Maintenance Representative Cerner at 06/23/2022 8:03 PM CDT documented in this encounter Plan of Treatment Not on file documented as of this encounter Visit Diagnoses Not on filedocumented in this encounter Care Teams Technical Testing Engineer Relationship Specialty Start Date End Date Bruce Garcia MD [address] [facility] [address] [place] [address] Medical Oncologist Hematology and Oncology 05/05/22 Raya Eaton, PACaroleeC [address] [place] [address] Physician Executive Steward Oncology 05/05/22 Luz Suarez, RN Nurse Navigator Oncology 07/02/22 Berkley Berry, SHERI Registered Nurse Oncology 07/02/22 documented as of this encounter
--- OUTSIDE RECORDS SUMMARY | 2024-08-25 13:46 | XMS_ITS | Encounter Summary ---
Author Organization [employer] Address [address] [place] [address] Care Team Providers Care Die Cutter Diamond Name Role Phone Bruce Garcia MD Unavailable Raya Eaton PA-C Unavailable [phone] Luz Suarez RN Unavailable Unavailable Close, Berkley Girard RN Unavailable Unavailable Encounter Details Date Type Department Care Team (Late st Contact Info) Description 07/27/2019 Transcribed Document [facility] [place] Medicine [address] [place] [address] ProviderJarret MD [address] [place] [address] Social History Tobacco Use Types Packs/Day Years Used Date Smoking Tobacco: Never Assessed Sex and Gender Information Value Date Recorded Sex Assigned at Not on file Legal Sex Male 5:24 PM CDT Gender Identity Not on file Sexual Orientation Not on file documented as of this encounter Miscellaneous Notes * Cerner Conversion Note - Jarret ProviderMD - 07/27/2019 1:11 PM CDT [facility] Main OR PACU Summary Primary Physician: TAHIRA PARSONS MD-SUR Finalized Date/Time: 07/27/19 15:37:21 Pt. Name: RENE TORIBIO/Sex: 1945 Male Med Rec #: [id number] Physician: TAHIRA PARSONS MD-SUR Financial #: [id number] Pt. Type: O Room/Bed: Admit/Disch: 07/27/19 10:27:00 - Institution: [facility] Main OR PACU I Case Times Entry 1 In PACU I 07/27/19 14:05:00 Ready for PACU 07/27/19 15:15:00 Discharge Discharge from PACU 07/27/19 15:15:00 I Last Modified By: ZAHIDA TAVERAS RN 07/27/19 15:37:09 Finalized By: ZAHIDA TAVERAS RN Document Signatures Signed By: ZAHIDA TAVERAS RN 07/27/19 15:37 Electronically signed by [facility] Conversion Construction Ironworker Cerner at 06/23/2022 8:03 PM CDT documented in this encounter Plan of Treatment Not on file documented as of this encounter Visit Diagnoses Not on filedocumented in this encounter Care Teams Die Cutter Diamond Relationship Specialty Start Date End Date Bruce Garcia MD [address] [place] [address] Medical Oncologist Hematology and Oncology 05/05/22 Raya Eaton, PA-C [address] [facility] [address] [address] Physician Sales And Marketing Professional Oncology 05/05/22 Luz Suarez, RN Nurse Navigator Oncology 07/02/22 Berkley Berry, SHERI Registered Nurse Oncology 07/02/22 documented as of this encounter
--- OUTSIDE RECORDS SUMMARY | 2024-08-25 13:46 | XMS_ITS | Encounter Summary ---
Author Organization [employer] Address [address] [place] [address] Care Team Providers Care Ethnology Teacher Name Role Phone Bruce Garcia MD Unavailable Raya Eaton PA-C Unavailable [phone] Luz Suarez RN Unavailable Unavailable Close, Berkley Girard RN Unavailable Unavailable Encounter Details Date Type Department Care Team (Late st Contact Info) Description 07/27/2019 Transcribed Document [facility] [place] Family Medicine [address] [place] [address] ProviderJarret MD [address] [place] [address] Social History Tobacco Use Types Packs/Day Years Used Date Smoking Tobacco: Never Assessed Sex and Gender Information Value Date Recorded Sex Assigned at Not on file Legal Sex Male 5:24 PM CDT Gender Identity Not on file Sexual Orientation Not on file documented as of this encounter Miscellaneous Notes * Cerner Conversion Note - Jarret Sotelo MD - 07/27/2019 3:[address] [facility] [place] [address] MIGUEL ÁNGEL TORIBIO :1945 Visit Time:07/27/2019 What to do next Your Diagnosis Unilateral inguinal hernia, without obstruction or gangrene, not specified as recurrent, Unilateral inguinal hernia, without obstruction or gangrene, not specified as recurrent Instructions From Your Care Team Diet after Discharge: Resume usual diet as tolerated, Do not drink any alcoholic beverages, Drink at least 8-10 glasses of water per day Activity after Discharge: As tolerated, Rest and relax today, No strenuous activity Lifting Restrictions: No heavy lifting over 10 pounds until cleared by the surgeon walk 3-5 times per day or more to prevent blood clots Driving after Discharge: Do not drive until cleared by the surgeon and while taking pain medication Showering/Bathing: may shower in 2 days, No tub bathing, soaking or swimming Notify Provider of: temperature 101 or greater, redness, swelling, excessive bleeding, pus drainage, difficulty urinating, nausea/vomiting, if the pain is not relived Wound/Incision Care after Discharge: Keep operative site/wound site clean and dry, _no powders, lotions or ointments to the incision Medical Equipment for Home Use: ice pack to left groin first 3 days, 20 min on 40 min off Follow-Up Appointments Follow Up with TAHIRA PARSONS When Within 1 week Comments Zoom appt 1 week Medications What How Much When Instructions Next Dose acetaminophen-hydrocodone (acetaminophen-HYDROcodone 325 mg-5 mg oral tablet) 1-2 tabs Oral Every 6 Hours as needed for for pain Printed Prescription atorvastatin 20 Milligram(s) Oral Every Day bisoprolol-hydrochlorothiazide (bisoprolol-hydrochlorothiazide 2.5 mg-6.25 mg oral tablet) 1 Tablet(s) Oral Every Day fenofibrate 134 Milligram(s) Oral At Bedtime glucosamine 500 Milligram(s) Oral Two Times A Day sulfamethoxazole-trimethoprim (sulfamethoxazole-trimethoprim 400 mg-80 mg oral tablet) 1 Tablet(s) Oral Every 12 hours Take your medications faithfully. Do NOT skip medication. Do NOT stop taking medications without the direction of a physician. Carry a list of your medications with you at all times, and take this medication list with you to your first follow up visit. Report any side effects. Avoid herbal remedies unless discussed with your physician. As part of your treatment plan, your physician may have prescribed a limited course of a controlled substance. This medication may be given to help people with moderate or severe pain or for other medical conditions, but there are risks involved with treatment. Common side effects may include nausea, constipation, drowsiness, sweating, itching, dry mouth, and rash. More serious side effects may include cognitive and motor impairment, like problems with thinking, concentrating, alertness, and movement (e.g. slowed reflexes), and driving and operating heavy machinery can be dangerous. It is important for you to talk to your physician if you have these side effects or questions. These controlled substances can produce physical dependence and be habit-forming if taken for an extended period of time, which means that the body has gotten used to them and may experience withdrawal symptoms if they are abruptly stopped. Withdrawal symptoms can include runny nose, sweating, goose bumps, diarrhea, abdominal cramping, rapid heartbeat, difficulty sleeping, and nervousness. Please dispose of unused and medications per pharmacy guidance. Education Materials General Anesthesia, Adult, Care After This sheet [...] activities are safe for you. ??? Take wzpf-rfq-aluhgif and prescription medicines only as told by [...] 05/31/2001 Document Revised: 10/08/2017 Document Reviewed: 10/08/2017 [employer] Interactive Patient Education ?? 2019 [employer] Open Hernia Repair, Adult, Care After These [...] cannot use soap and water, use hand merchandising representative. ? Change your bandage as told by [...] (urine) clear or pale yellow. ? Take fakr-tzb-hsftwew or prescription medicines. ? Eat foods that are high in fiber, such as fresh fruits and vegetables, whole grains, and beans. ? Limit foods that are high in fat and processed sugars, such as fried and sweet foods. ??? Take kddz-wmw-ovwgdhg and prescription medicines only as told by [...] (stool). ??? You have not pooped in 2???3 days. ??? Medicine does not help your [...] 03/15/2015 Document Revised: 09/11/2016 Document Reviewed: 08/05/2016 [employer] Interactive Patient Education ?? 2019 [employer]. acetaminophen and hydrocodone (a SEET a MIN oh fen and arron droe KOE done) Hycet, Lorcet, [place], Verdrocet, Vicodin, Xodol, Zamicet What is the most important information I should know about acetaminophen and hydrocodone? MISUSE OF OPIOID MEDICINE CAN CAUSE ADDICTION, OVERDOSE, OR . Keep the medication in a place where others cannot get to it. Taking opioid medicine during may cause life-threatening withdrawal symptoms in the . Fatal side effects can occur if you use opioid medicine with alcohol, or with other drugs that cause drowsiness or slow your breathing. Stop taking this medicine and call your doctor right away if you have skin redness or a rash that spreads and causes blistering and peeling. What is acetaminophen and hydrocodone? Acetaminophen and hydrocodone is a combination medicine used to relieve moderate to severe pain. Acetaminophen and hydrocodone may also be used for purposes not listed in this medication guide. What should I discuss with my healthcare provider before taking acetaminophen and hydrocodone? You should not use this medicine if you are allergic to acetaminophen or hydrocodone, or if you have: ?? severe asthma or breathing problems; or ?? a blockage in your stomach or intestines. Tell your doctor if you have ever had: ?? breathing problems, sleep apnea; ?? liver disease; ?? a drug or alcohol addiction; ?? kidney disease; ?? a head injury or seizures; ?? urination problems; or ?? problems with your thyroid, pancreas, or gallbladder. If you use opioid medicine while you are , your baby could become dependent on the drug. This can cause life-threatening withdrawal symptoms in the baby after it is born. Babies born dependent on opioids may need medical treatment for several weeks. Do not breastfeed. This medicine can pass into breast milk and cause drowsiness, breathing problems, or in a nursing baby. How should I take acetaminophen and hydrocodone? Follow all directions on your prescription label. Never take this medicine in larger amounts, or for longer than prescribed. An overdose can damage your liver or cause . Tell your doctor if you feel an increased urge to use more of this medicine. Never share this medicine with another person, especially someone with a history of drug abuse or addiction. MISUSE CAN CAUSE ADDICTION, OVERDOSE, OR . Keep the medicine in a place where others cannot get to it. Selling or giving away acetaminophen and hydrocodone is against the law. Measure liquid medicine carefully. Use the dosing syringe provided, or use a medicine dose-measuring device (not a kitchen spoon). If you need surgery or medical tests, tell the doctor ahead of time that you are using this medicine. You should not stop using this medicine suddenly. Follow your doctor's instructions about tapering your dose. Store at room temperature away from moisture and heat. Keep track of your medicine. You should be aware if anyone is using it improperly or without a prescription. Do not keep leftover opioid medication. Just one dose can cause in someone using this medicine accidentally or improperly. Ask your pharmacist where to locate a drug take-back disposal program. If there is no take-back program, flush the unused medicine down the toilet. What happens if I miss a dose? Since this medicine is used for pain, you are not likely to miss a dose. Skip any missed dose if it is almost time for your next dose. Do not use two doses at one time. What happens if I overdose? Seek emergency medical attention or call the Poison Help line at . An overdose of acetaminophen and hydrocodone can be fatal. The first signs of an acetaminophen overdose include loss of appetite, nausea, vomiting, stomach pain, sweating, and confusion or weakness. Later symptoms may include pain in your upper stomach, dark urine, and yellowing of your skin or the whites of your eyes. Overdose can also cause severe muscle weakness, pinpoint pupils, very slow breathing, extreme drowsiness, or coma. What should I avoid while taking acetaminophen and hydrocodone? Avoid driving or operating machinery until you know how this medicine will affect you. Dizziness or drowsiness can cause falls, accidents, or severe injuries. Do not drink alcohol. Dangerous side effects or could occur. Ask a doctor or pharmacist before using any other medicine that may contain acetaminophen (sometimes abbreviated as APAP). Taking certain medications together can lead to a fatal overdose. What are the possible side effects of acetaminophen and hydrocodone? Get emergency medical help if you have signs of an allergic reaction: hives; difficulty breathing; swelling of your face, lips, tongue, or throat. Opioid medicine can slow or stop your breathing, and may occur. A person caring for you should seek emergency medical attention if you have slow breathing with long pauses, blue colored lips, or if you are hard to wake up. In rare cases, acetaminophen may cause a severe skin reaction that can be fatal. This could occur even if you have taken acetaminophen in the past and had no reaction. Stop taking this medicine and call your doctor right away if you have skin redness or a rash that spreads and causes blistering and peeling. Call your doctor at once if you have: ?? noisy breathing, sighing, shallow breathing, breathing that stops during sleep; ?? a light-headed feeling, like you might pass out; ?? liver problems--nausea, upper stomach pain, tiredness, loss of appetite, dark urine, danielle-colored stools, jaundice (yellowing of the skin or eyes); or ?? low cortisol levels-- nausea, vomiting, loss of appetite, dizziness, worsening tiredness or weakness. Seek medical attention right away if you have symptoms of serotonin syndrome, such as: agitation, hallucinations, fever, sweating, shivering, fast heart rate, muscle stiffness, twitching, loss of coordination, nausea, vomiting, or diarrhea. Serious side effects may be more likely in older adults and those who are overweight, malnourished, or debilitated. Long-term use of opioid medication may affect fertility (ability to have children) in men or women. It is not known whether opioid effects on fertility are permanent. Common side effects include: ?? dizziness, drowsiness, feeling tired; ?? nausea, vomiting, stomach pain; ?? constipation; or ?? headache. This is not a complete list of side effects and others may occur. Call your doctor for medical advice about side effects. You may report side effects to FDA at 3-313-RHO-8587. What other drugs will affect acetaminophen and hydrocodone? You may have breathing problems or withdrawal symptoms if you start or stop taking certain other medicines. Tell your doctor if you also use an antibiotic, antifungal medication, heart or blood pressure medication, seizure medication, or medicine to treat HIV or hepatitis C. Opioid medication can interact with many other drugs and cause dangerous side effects or . Be sure your doctor knows if you also use: ?? cold or allergy medicines, bronchodilator asthma/COPD medication, or a diuretic ('water pill'); ?? medicines for motion sickness, irritable bowel syndrome, or overactive bladder; ?? other narcotic medications--opioid pain medicine or prescription cough medicine; ?? a sedative like Valium--diazepam, alprazolam, lorazepam, Xanax, Klonopin, Versed, and others; ?? drugs that make you sleepy or slow your breathing--a sleeping pill, muscle relaxer, medicine to treat mood disorders or mental illness; ?? drugs that affect serotonin levels in your body--a stimulant, or medicine for depression, Parkinson's disease, migraine headaches, serious infections, or nausea and vomiting. This list is not complete. Other drugs may affect acetaminophen and hydrocodone, including prescription and fyww-bue-ctqynpt medicines, vitamins, and herbal products. Not all possible interactions are listed here. Where can I get more information? Your doctor or pharmacist can provide more information about acetaminophen and hydrocodone. Remember, keep this and all other medicines out of the reach of children, never share your medicines with others, and use this medication only for the indication prescribed. Every effort has been made to ensure that the information provided by [employer] ('[employer]') is accurate, up-to-date, and complete, but no guarantee is made to that effect. Drug information contained herein may be time sensitive. [employer] information has been compiled for use by healthcare practitioners and consumers in the [place] and therefore [employer] does not warrant that uses outside of the [place] are appropriate, unless specifically indicated otherwise. [employer] drug information does not endorse drugs, diagnose patients or recommend therapy. [employer] drug information is an informational resource designed to assist licensed healthcare practitioners in caring for their patients and/or to serve consumers viewing this service as a supplement to, and not a substitute for, the expertise, skill, knowledge and judgment of healthcare practitioners. The absence of a warning for a given drug or drug combination in no way should be construed to indicate that the drug or drug combination is safe, effective or appropriate for any given patient. [employer] does not assume any responsibility for any aspect of healthcare administered with the aid of information [employer] provides. The information contained herein is not intended to cover all possible uses, directions, precautions, warnings, drug interactions, allergic reactions, or adverse effects. If you have questions about the drugs you are taking, check with your doctor, nurse or pharmacist. Copyright 5469-8295 [employer]. Version: 16.01. Revision Date: 03/29/2019. Emergency Awareness and Preventative Care STROKE is an EMERGENCY Every Minute Counts Act FAST and Check for these signs: FACE Does the face look uneven? ARM Does one arm drift down? SPEECH Does their speech sound strange? TIME Call at any sign of stroke Stroke Risk Factors Atrial Fibrillation (irregular heartbeat) Diabetes Family history of stroke Heart Disease Heavy alcohol use High Blood Pressure High Cholesterol Physical inactivity and obesity Smoking Cigarette Smoking The facts are clear, cigarette smoking will shorten your life. Smoking can cause many illnesses along the way. As a healthcare provider, we recommend that you stop smoking. Assistance with quitting is available by contacting 9-184-QANQ-NOW. This is a free resource providing counseling, support, and referral. Or you may contact your personal physician. National Suicide Prevention Lifeline: The National Suicide Prevention Lifeline is a national network of local crisis centers that provides free and confidential emotional support to people in suicidal crisis or emotional distress 24 hours a day, 7 days a week. Don't Wait! Stop a Heart Attack Before it Starts What is a heart attack? A heart attack is damage or to a part of the heart from severely decreased or lack of blood flow to the heart. Over time, arteries can become narrow from the buildup of fat and cholesterol, which is called plaque. The plaque can rupture causing a blood clot to form. When the blood clot forms, the artery can become severely narrowed or completely blocked, causing a heart attack. Heart attack is the leading cause of in the [place]. 85% of muscle damage occurs within the first 2 hours. Delay in the recognition of heart attack symptoms increases the chances of . Know the early symptoms of a heart attack: Nausea Feeling of fullness in chest Jaw Pain Pain that travels down one or both arms Fatigue/being tired Anxiety Back Pain Chest pressure, squeezing, or discomfort Shortness of breath Sweating, or a cold sweat Feeling of impending doom There are unusual signs of a heart attack, too! Women, the elderly, and diabetics may present with atypical symptoms: Fainting/dizziness Weakness Confusion Risk Factors for a Heart Attack Some heart disease risk factors, such as age and family history, cannot be changed. Others, like smoking and lack of exercise, can be changed. Smoking High Cholesterol High Blood Pressure Family History Obesity Age Gender (Males are at higher risk) Lack of Exercise Diabetes Diet Stress Excessive Alcohol Intake If you or someone you know is experiencing the signs and symptoms of a heart attack, DON???T DELAY. Call immediately and seek help. If someone collapses, perform CPR! Do not attempt to drive if you are having symptoms of heart attack. Hands-Only CPR Why Hands-Only CPR? Hands-Only CPR has been shown to be as effective as conventional CPR for cardiac arrests that occur outside of a hospital. Survival depends on immediately receiving CPR from someone nearby. How do you perform Hands-Only CPR? There are two easy steps: Call if you see a teen or adult collapse Push hard and fast in the center of the chest at a beat of 100 beats per minute. Save a life! 4 WAYS TO GET AHEAD OF SEPSIS SEPSIS is a MEDICAL EMERGENCY. Time matters! Infections put you and your family at risk for a life-threatening condition called sepsis. Sepsis is the body's extreme response to an infection. It is life-threatening, and without timely treatment, sepsis can rapidly lead to tissue damage, organ failure, and . Sepsis happens when an infection you already have-in your skin, lungs, urinary tract or somewhere else-triggers a chain reaction throughout your body. 1 PREVENT INFECTIONS Take good care of chronic conditions. Talk to your doctor about getting the recommended vaccines. 2 PRACTICE GOOD HYGIENE Wash your hands frequently. Keep cuts or open sores clean and covered until they are healed. 3 KNOW THE SYMPTOMS Confusion or disorientation Shortness of breath High heart rate Fever, shivering, or feeling very cold Extreme pain or discomfort Clammy or sweaty skin 4 ACT FAST Get medical care IMMEDIATELY if you suspect sepsis or if you have an infection that is not getting better or is getting worse. To learn more about sepsis and how to prevent infections, visit www.cdc.gov/sepsis. Test Results Laboratory or Other Results This Visit (last charted value for your 07/27/2019 visit) Microbiology 07/24/2019 12:15 PM Novel Coronavirus 2019: Negative General Chemistry 07/27/2019 11:34 AM Potassium POC: 4.4 mmol/L -- Normal range between ( 3.5 and 4.9 ) :Potassium Level POC: :Potassium Level POC Patient Name:MIGUEL ÁNGEL TORIBIO I have received this information and was given the opportunity to ask questions. Patient/Remediation Project Engineer Name: Patient/Remediation Project Engineer Signature: Relationship to Patient: Clinician/Hospital Remediation Project Engineer Signature: Date: documented in this encounter Plan of Treatment Not on file documented as of this encounter Visit Diagnoses Not on filedocumented in this encounter Care Teams Ethnology Teacher Relationship Specialty Start Date End Date Bruce Garcia MD [address] [facility] [address] [address] Medical Oncologist Hematology and Oncology 05/05/22 Raya Eaton, PA-C [address] [facility] [address] [facility] [address] [place] [address] Physician Aboriginal Liaison Officer Oncology 05/05/22 Luz Suarez, RN Nurse Navigator Oncology 07/02/22 Berkley Berry RN Registered Nurse Oncology 07/02/22 documented as of this encounter
[2024-08-25] MEDS: DENOSUMAB 120MG/1.7ML VIAL 120 MG SUBCUT (13:52)
[2024-08-25 13:58] VITALS: BP 138/75; PULSE 58; RESP 18; O2SAT 98
[2024-08-25 14:07] LABS: Basophils # 0.1 K/mm3 (0-0.2); Basophils % 1.4 % (0.1-2.0); Eosinophils # 0.5 Kmm3 (0.0-0.4); Eosinophils % 7.9 % (0.1-12.0); Hematocrit 39.5 % (42.0-52.0); Hemoglobin 12.8 g/dL (14.1-18.0); Immature Granulocytes # 0.19 10^3uL; Immature Granulocytes % 2.9 %; Lymphocytes % 15.5 % (10-50); Mean Corpuscular HGB Conc 32.4 g/dL (31.8-35.4); Mean Corpuscular Volume 92.5 fl (80-94); Mean Platelet Volume 11.5 fl (7.4-10.4); Monocytes # 0.6 K/mm3 (0.1-1.0); Monocytes % 8.7 % (1.7-9.3); Neutrophils # 4.2 K/mm3 (1.8-7.8); Neutrophils % 63.6 % (37.0-80.0); Nucleated Red Blood Cells # 0 10^3/uL; Nucleated Red Blood Cells % 0 %; Platelet Count 162 K/mm3 (142-424); Red Blood Count 4.27 M/mm3 (4.60-6.20); Red Cell Distribution Width 13.7 % (11.5-17.5); Red Cell Distribution Width-SD 46.1 fL; White Blood Count 6.6 K/mm3 (4.8-10.8)
[2024-08-25 14:22] LABS: Alanine Aminotransferase 16 U/L (12-78); Albumin Level 3.8 g/dl (3.5-5.0); Albumin/Globulin Ratio 1.8 (1.1-1.8); Alkaline Phosphatase 36 U/L (38-126); Aspartate Amino Transferase 33 U/L (17-59); Bilirubin,Total 0.7 mg/dl (0.2-1.3); Blood Urea Nitrogen 16 mg/dl (9-20); Calcium 9.6 mg/dl (8.4-10.2); Carbon Dioxide 28 mmol/L (22.0-30.0); Chloride 99 mmol/L (98-107); Estimated Glomerular Filt Rate 73 ml/min (>60); GFR (African American) 88 ML/MIN (>60); Globulin 2.1 g/dL (1.3-3.2); Glucose 95 mg/dl (74-100); Sodium 135 mmol/L (136-145); Total Protein,Serum 5.9 g/dl (6.3-8.2)
[2024-08-25 14:53] LABS: Prostate Specific Ag, Diagnost 8.37 ng/ml (0.0-4.0)
== END 2024-08-25 13:58 | disposition home or self-care (01) ==
LOC: INF 13:43
PROVIDERS: Visit Provider Internal Medicine Medical Oncology
DX: C79.82 Secondary malignant neoplasm of genital organs (principal)
CPT/HCPCS: 36415; 80053; 84153; 85025; 96372; J0897

== ENCOUNTER 2024-11-01 13:53 | Outpatient (CLI) | payer MEDICARE, SELFPAY ==
--- NOTE | 2024-11-01 13:57 | PC.NURSE ---
1357-shree wright collected labs via venipuncture stick in right ac with butterfly needle;pt to d/c home.
--- OUTSIDE RECORDS SUMMARY | 2024-11-01 13:57 | XMS_ITS | Clinical Summary ---
Author Organization [facility] ([place], [place], [place], [place]) Address [address] [place] [address] Care Team Providers Care Administrative Law Judge Name Role Phone Bruce Garcia MD Unavailable Raya Eaton PA-C Unavailable [phone] Luz Suarez RN Unavailable Unavailable Berkley Alfonso RN Unavailable Unavailable Allergies Active Allergy Reactions [...] often do you attend chur ch or congregation services? More than 4 times per year 05/06/2022 Do you belong to any clubs o r organizations such as nondenominational groups, unions, fraternal or athletic groups, or school groups? No 05/06/2022 How often do you attend meet ings of the clubs or organizations you belong to? Never 05/06/2022 Are you , , di vorced, , never , or living with a partner? 05/06/2022 Overall Financial Resource Strain (CARDIA) Answe r Date Recorded How hard is it for you to pa y for the very basics like food, housing, medical care, and heating? Not hard at all 05/06/2022 Exercise Vital Sign Answer [...] things needed for daily living? No 05/06/2022 Food Insecurity Answer Date Recorded Food run [...] Date Ethan rded Speak language other than Cuban at home Not on file 03/25/2023 Want help with school or training Not on file 03/25/2023 Substance Use Answer Date Recorded Used [...] 2023 Falls Risk Screening 03/08/2024 Influenza Vaccine (#1) 2024 Insurance [employer] MEDICARE PPO [employer] MED[employer]ARE HMO Care Teams Administrative Law Judge Relationship Specialty Start Date End Date Bruce Garcia MD [address] [facility] [address] [place] [address] Medical Oncologist Hematology and Oncology 05/05/22 Raya Eaton, PA-C [address] [place] [address] Physician Head Stock Operator Oncology 05/05/22 Luz Suarez, SHERI Nurse Navigator Oncology 07/02/22 Berkley Alfonso, RN Registered Nurse Oncology 07/02/22
--- OUTSIDE RECORDS SUMMARY | 2024-11-01 13:57 | XMS_ITS | Encounter Summary ---
Author Organization [employer] ([place], [place], [place], [place]) Address [address] [place] [address] Care Team Providers Care Machine Rebuilder Name Role Phone Bruce Garcia MD Unavailable aRya Eaton PA-C Unavailable [phone] Luz Suarez RN Unavailable Unavailable Berkley Alfonso RN Unavailable Unavailable Encounter Details Date Type Department Care Team (Late st Contact Info) Description 07/27/2019 Transcribed Document [facility] [place] Family Medicine [address] [place] [address] ProviderJarret MD [address] [place] [address] Social History Tobacco Use Types Packs/Day Years Used Date Smoking Tobacco: Never Assessed Sex and Gender Information Value Date Recorded Sex Assigned at Not on file Legal Sex Male 5:24 PM CDT Gender Identity Not on file Sexual Orientation Not on file documented as of this encounter Miscellaneous Notes * Cerner Conversion Note - Historical ProviderMD - 07/27/2019 11:11 AM CDT Height and Weight, Clinical Dosing Entered On: 07/27/2019 11:11 EDT Performed On: 07/27/2019 11:11 EDT by MARY Valdovinos RN Height and Weight, Clinical Dosing Height Source : Measured Height Entry Format : Frio Height, Feet : 5 ft(Converted to: 152 cm, 60 Inch) Height, Inches : 11 Inch(Converted to: 0 ft 11 Inch, 27.94 cm) Clinical Height : 180.34 cm Weight Source : Standing scale Weight Entry Format : Frio Clinical Dosing Weight : 87.45 kg Weight, Pounds : 192.4 lb Body Surface Area (BSA) : 2.08 m2 Body Mass Index : 26.9 kg/m2 (HI) [place] Body Weight : 74 kg MARY Valdovinos, RN - 07/27/2019 11:11 EDT Electronically signed by [facility] Conversion Methods Specialist Engineer Cerner at 06/23/2022 8:05 PM CDT documented in this encounter Plan of Treatment Not on file documented as of this encounter Visit Diagnoses Not on filedocumented in this encounter Care Teams Machine Rebuilder Relationship Specialty Start Date End Date Bruce Garcia MD [address] [address] Medical Oncologist Hematology and Oncology 05/05/22 Raya Eaton, PA-C [address] [facility] [address] [facility] [address] [place] [address] Physician Retail Reset Merchandiser Oncology 05/05/22 Luz Suarez, RN Nurse Navigator Oncology 07/02/22 Berkley Alfonso, SHERI Registered Nurse Oncology 07/02/22 documented as of this encounter
--- OUTSIDE RECORDS SUMMARY | 2024-11-01 13:57 | XMS_ITS | Encounter Summary ---
Author Organization [employer] ([place], [place], [place], [place]) Address [address] [place] [address] Care Team Providers Care Spa Therapist Name Role Phone Bruce Garcia MD Unavailable Raya Eaton PA-C Unavailable [phone] Luz Suarez RN Unavailable Unavailable Berkley Alfonso RN Unavailable Unavailable Encounter Details Date Type Department Care Team (Late st Contact Info) Description 07/27/2019 Transcribed Document [facility] [place] Family Medicine [facility] [place] [address] ProviderJarret MD [address] [place], [place] [id number] Social History Tobacco Use Types Packs/Day Years Used Date Smoking Tobacco: Never Assessed Sex and Gender Information Value Date Recorded Sex Assigned at Not on file Legal Sex Male 5:24 PM CDT Gender Identity Not on file Sexual Orientation Not on file documented as of this encounter Miscellaneous Notes * Cerner Conversion Note - Jarret ProviderMD - 07/27/2019 11:15 AM CDT Patient: MIGUEL ÁNGEL TORIBIO Age: 73 years Sex: Male : 1945 Associated Diagnoses: None Author: SHAI REYEZ APRN Chief Complaint LIH Review of Systems ROS [...] All Problems Seasonal allergies / SNOMED CT 357696846 / Confirmed especially in the fall and spring Inguinal hernia / SNOMED CT 9493649128 / Confirmed Hyperlipidemia / SNOMED CT 83733288 / Confirmed High blood pressure / SNOMED CT 35258192 / Confirmed Disorder of prostate / SNOMED CT 34837301 / Confirmed CA - Cancer of prostate / SNOMED CT 0600709271 / Confirmed CA - Cancer of prostate / SNOMED CT 0560941965 / Confirmed Back pain / SNOMED CT 887869094 / Confirmed, Active Problems (8) Back pain [...] EDT Height Source Measured Height Entry Format Appling Height/Length, RWANDAN (ft) 5 ft Height/Length RWANDAN 11 Inch CLINICALHEIGHT 180.34 cm [place] Body Weight 74 kg Weight Source Standing scale Weight Entry Format [place] Weight Cymraes lb 192.4 lb CLINICALWEIGHT 87.45 kg Body Surface Area (BSA) 2.08 m2 Body Mass Index 26.9 kg/m2 HI 07/26/2019 13:51 EDT Height Source Measured Height Entry Format Appling Weight Source Standing scale Weight Entry Format [place]ling General: Alert and oriented, No acute distress. Eye: Pupils are equal, round and reactive to light, Extraocular movements are intact, glasses. HENT: Normocephalic, slightly [place]. Neck: Supple, Non-tender. Respiratory: Lungs are clear to auscultation, Respirations are non-labored. Cardiovascular: Normal rate, Regular rhythm, No murmur, No gallop, No edema. Gastrointestinal: Soft, Non-tender, LIH. Genitourinary: No costovertebral angle tenderness. Lymphatics: No lymphadenopathy neck, axilla, groin. Musculoskeletal: Normal range of motion, Normal strength. Integumentary: Warm, Dry, Onycha. Neurologic: Alert, Oriented. Psychiatric: Cooperative, Appropriate mood & affect. Review / Management Results review: No qualifying data available. Impression and Plan Condition: Stable. documented in this encounter Plan of Treatment Not on file documented as of this encounter Visit Diagnoses Not on filedocumented in this encounter Care Teams Spa Therapist Relationship Specialty Start Date End Date Bruce Garcia MD [address] [facility] [address] [place] [address] Medical Oncologist Hematology and Oncology 05/05/22 Raya Eaton, PACaroleeC [address] [place] [address] Physician Butt Presser Oncology 05/05/22 Luz Suarez, RN Nurse Navigator Oncology 07/02/22 Berkley Alfonso, RN Registered Nurse Oncology 07/02/22 documented as of this encounter
--- OUTSIDE RECORDS SUMMARY | 2024-11-01 13:57 | XMS_ITS | Encounter Summary ---
Author Organization [employer] ([place], [place], [place], [place]) Address [address] [place] [address] Care Team Providers Care Reeling Machine Setup Operator Name Role Phone Bruce Garcia MD Unavailable Raya Eaton PA-C Unavailable [phone] Luz Suarez RN Unavailable Unavailable Berkley Alfonso RN Unavailable Unavailable Encounter Details Date Type Department Care Team (Late st Contact Info) Description 07/27/2019 Transcribed Document [facility] [place] Family Medicine [address] [place] [address] ProviderJarret MD [address] [place], [place] [address] Social History Tobacco Use Types Packs/Day Years Used Date Smoking Tobacco: Never Assessed Sex and Gender Information Value Date Recorded Sex Assigned at Not on file Legal Sex Male 5:24 PM CDT Gender Identity Not on file Sexual Orientation Not on file documented as of this encounter Miscellaneous Notes * Cerner Conversion Note - Jarret ProviderMD - 07/27/2019 1:11 PM CDT [facility] Main OR Preop Summary Primary Physician: TAHIRA PARSONS MD-SUR Finalized Date/Time: 07/27/19 14:30:11 Pt. Name: RENE TORIBIO/Sex: 1945 Male Med Rec #: [id number] Physician: TAHIRA PARSONS MD-SUR Financial #: [id number] Pt. Type: O Room/Bed: Admit/Disch: 07/27/19 10:27:00 - Institution: [facility] PreOp Case Times Entry 1 In Preop 07/27/19 10:39:00 Ready for Holding n/a Room Patient Ready for 07/27/19 11:30:00 Surgery Patient Out of Preop 07/27/19 12:30:00 Patient Out of n/a Holding Room Last Modified By: Laly Joe Nurse Cabin Worker 07/27/19 14:30:09 [facility] PreOp Case Times Audit 07/27/19 14:30:09 Softball Umpire: ARLYN Modifier: [id number] <*> Patient Out of Preop 07/27/19 10:49:00 1 <+> Patient Ready for Surgery Finalized By: Laly Joe Nurse Store Manager Signatures Signed By: Laly Joe Nurse 07/27/19 14:30 Electronically signed by Cecille [facility] Conversion House Wrecker Cerner at 06/23/2022 8:18 PM CDT documented in this encounter Plan of Treatment Not on file documented as of this encounter Visit Diagnoses Not on filedocumented in this encounter Care Teams Reeling Machine Setup Operator Relationship Specialty Start Date End Date Bruce Garcia MD [address] [facility] [address] [id number] Medical Oncologist Hematology and Oncology 05/05/22 Raya Eaton, PA-C [address] [facility] [address] [facility] [address] [place] [address] Physician Entry Level Project Coordinator Oncology 05/05/22 Luz Suarez, SHERI Nurse Navigator Oncology 07/02/22 Berkley Alfonso RN Registered Nurse Oncology 07/02/22 documented as of this encounter
--- OUTSIDE RECORDS SUMMARY | 2024-11-01 13:57 | XMS_ITS | Clinical Summary ---
Author Organization [facility] Address [facility] [place] [address] Care Team Providers Care Podopediatrician Name Role Phone Samantha Jaquez Primary Care Provider [phone] Allergies No known active allergies Medications abiraterone [...] 12/24/2020, 05/01/2020, Additional history exists Influenza Vaccine (#1) 2024 02/16/2022 HIB Vaccines Aged Out No [...] this topic Insurance [employer] MEDICARE Care Teams Podopediatrician Relationship Specialty Start Date End Date Samantha Jaquez PA [address] [place] [address] PCP - General Physician Assistant Passenger Locomotive Engineer 11/02/20
--- OUTSIDE RECORDS SUMMARY | 2024-11-01 13:57 | XMS_ITS | Referral Summary ---
Author Organization [employer] ([place], [place], [place], [place]) Address [address] [place] [address] Care Team Providers Care Emissions Testing And Repair Technician Name Role Phone Bruce Garcia MD Unavailable Raya Eaton PA-C Unavailable [phone] Luz Suarez RN Unavailable Unavailable Berkley [...] often do you attend chur ch or druze services? More than 4 times per year 05/06/2022 Do you belong to any clubs o r organizations such as muslim groups, unions, fraternal or athletic groups, or [...] Date Ethan rded Speak language other than Spanish at home Not on file 03/25/2023 Want [...] Plan of Treatment Not on file Insurance [employer] MEDICARE PPO HU[employer]NA MEDICARE HMO Care Teams Emissions Testing And Repair Technician Relationship Specialty Start Date End Date Bruce Garcia MD [address] [facility] [address] [place] [address] Medical Oncologist Hematology and Oncology 05/05/22 Raya Eaton, PA-C [address] [place] [address] Physician Mud Analysis Operator Oncology 05/05/22 Luz Suarez, RN Nurse Navigator Oncology 07/02/22 Berkley Alfonso, RN Registered Nurse Oncology 07/02/22
--- OUTSIDE RECORDS SUMMARY | 2024-11-01 13:57 | XMS_ITS | Encounter Summary ---
Author Organization [employer] ([place], [place], [place], [place]) Address [address] [place] [address] Care Team Providers Care Behavioral Therapist Name Role Phone Bruce Garcia MD Unavailable Raya Eaton PA-C Unavailable [phone] Luz Suarez RN Unavailable Unavailable Berkley Alfonso RN Unavailable Unavailable Encounter Details Date Type Department Care Team (Late st Contact Info) Description 07/27/2019 Transcribed Document [facility] [place] [address] [place] [address] ProviderJarret MD [address] [place] [id number] Social History Tobacco Use Types Packs/Day Years [...] open left inguinal hernia repair with mesh. ARCHEOLOGY FACULTY MEMBER: Irineo Cao. ANESTHESIA: General endotracheal. FINDINGS: The [...] was taken to recovery in stable condition. /[id number] MD BENIGNO Valdivia/CY / BENIGNO / MODL /[id number] Electronically signed by Cecille, [facility] Conversion Refrigeration Brazer/Solderer Cerner at 06/23/2022 8:21 PM CDT documented in this encounter Plan of Treatment Not on file documented as of this encounter Visit Diagnoses Not on filedocumented in this encounter Care Teams Behavioral Therapist Relationship Specialty Start Date End Date Bruce Garcia MD [address] [facility] [address] [place] [address] Medical Oncologist Hematology and Oncology 05/05/22 Raya Eaton, PAVictoria [address] [facility] [address] [place] [address] Physician Storage Brine Worker Oncology 05/05/22 Luz Suarez, RN Nurse Navigator Oncology 07/02/22 Berkley Alfonso, RN Registered Nurse Oncology 07/02/22 documented as of this encounter
--- OUTSIDE RECORDS SUMMARY | 2024-11-01 13:57 | XMS_ITS | Encounter Summary ---
Author Organization [employer] ([place], [place], [place], [place]) Address [address] [place] [address] Care Team Providers Care Department Mgr Name Role Phone Bruce Garcia MD Unavailable Raya Eaton PA-C Unavailable [phone] Luz Suarez RN Unavailable Unavailable Berkley Alfonso RN Unavailable Unavailable Encounter Details Date Type Department Care Team (Late st Contact Info) Description 07/27/2019 Transcribed Document [facility] [place] [address] [place] [address] ProviderJarret MD [address] [place], [place] [address] Social History Tobacco Use Types Packs/Day Years Used Date Smoking Tobacco: Never Assessed Sex and Gender Information Value Date Recorded Sex Assigned at Not on file Legal Sex Male 5:24 PM CDT Gender Identity Not on file Sexual Orientation Not on file documented as of this encounter Miscellaneous Notes * Cerner Conversion Note - Jarret ProviderMD - 07/27/2019 1:11 PM CDT [facility] Main OR PostOp Summary Primary Physician: TAHIRA PARSONS MD-SUR Finalized Date/Time: 07/27/19 16:22:49 Pt. Name: RENE TORIBIO/Sex: 1945 Male Med Rec #: [id number] Physician: TAHIRA PARSONS MD-SUR Financial #: [id number] Pt. Type: O Room/Bed: Admit/Disch: 07/27/19 10:27:00 - 07/27/19 15:54:00 Institution: [facility] Main OR PostOp Case Times Entry 1 In PACU II 07/27/19 15:20:00 Ready for PACU II 07/27/19 15:54:00 Discharge Discharge from PACU 07/27/19 15:54:00 II Last Modified By: Summer Servin RN 07/27/19 16:22:47 Finalized By: Summer Servin RN Document Signatures Signed By: Summer Servin RN 07/27/19 16:22 documented in this encounter Plan of Treatment Not on file documented as of this encounter Visit Diagnoses Not on filedocumented in this encounter Care Teams Department Mgr Relationship Specialty Start Date End Date Bruce Garcia MD [address] [place] [address] Medical Oncologist Hematology and Oncology 05/05/22 Raya Eaton, PA-C [address] [facility] [address] [place] [address] Physician Mental Health Director Oncology 05/05/22 Luz Suarez, RN Nurse Navigator Oncology 07/02/22 Berkley Alfonso, SHERI Registered Nurse Oncology 07/02/22 documented as of this encounter
--- OUTSIDE RECORDS SUMMARY | 2024-11-01 13:57 | XMS_ITS ---
Author Organization [employer] ([place], [place], [place], [place]) Address [address] [place] [address] Care Team Providers Care Broach Trouble Shooter Name Role Phone Bruce Garcia MD Unavailable Raya Eaton PA-C Unavailable [phone] Luz Suarez RN Unavailable Unavailable Berkley Alfonso RN Unavailable Unavailable Active Problems Problem Noted Date Diagnosed Date Prostate cancer 01/23/2022 Cancer Staging:Clinical:Stage IVB(cTX, cN0, pM1b) - Signed by Bruce Garcia MD on 01/23/2022 Current Oncology Plans No current plan information found. Past Plans Therapy Infusion Plan 1 Plan Name Start Date Discontinue Date Treatment Medications Discontinue Reason Plan Provider [facility] BONE MODIFYING AGENT DENOSUMAB (PROLIA, XGEVA) 01/23/2022 02/24/2023 denosumab (XGEVA)sodium chloride 0.9 % (NS) Patient Preference Bruce Garcia MD Radiation Treatments * No radiation treatments are documented for this patient in [facility]. Treatments may have been administered in another system.
--- OUTSIDE RECORDS SUMMARY | 2024-11-01 13:58 | XMS_ITS | Encounter Summary ---
Author Organization [employer] ([place], [place], [place], [place]) Address [address] [place] [address] Care Team Providers Care Head Golf Coach Name Role Phone Bruce Garcia MD Unavailable Raya Eaotn PA-C Unavailable [phone] Luz Suarez RN Unavailable Unavailable Berkley Alfonso RN Unavailable Unavailable Encounter Details Date Type Department Care Team (Late st Contact Info) Description 07/27/2019 Transcribed Document [facility] Family Medicine [address] [place] [address] ProviderJarret MD [address], [place] [address] Social History Tobacco Use Types Packs/Day Years Used Date Smoking Tobacco: Never Assessed Sex and Gender Information Value Date Recorded Sex Assigned at Not on file Legal Sex Male 5:24 PM CDT Gender Identity Not on file Sexual Orientation Not on file documented as of this encounter Miscellaneous Notes * Cerner Conversion Note - Jarret ProviderMD - 07/27/2019 1:11 PM CDT [facility] Main OR IntraOp Summary Primary Physician: TAHIRA PARSONS MD-SUR Finalized Date/Time: 07/30/19 13:00:13 Pt. Name: MIGUEL ÁNGEL BOSTON/Sex: 1945 Male Med Rec #: [id number] Physician: TAHIRA PARSONS MD-SUR Financial #: [id number] Pt. Type: O Room/Bed: Admit/Disch: 07/27/19 10:27:00 - 07/27/19 15:54:00 Institution: [facility] IntraOp Case Attendance Entry 1 Entry 2 Entry 3 Case Attendee TAHIRA PARSONS MD-TIMOTEO ROCHA MD-Octavia Clay, Leland Role Performed Surgeon/Proceduralist, Anesthesiologist of STITCHER SPECIAL MACHINE/Nurse Medical Physics Professor First Record Time In 07/27/19 12:33:00 07/27/19 [...] OTHER, ATTENDEE #1 TED GREY Robin A Roller Varnisher Role Performed Stator Connector, First Scrub, First Time In 07/27/19 12:33:00 07/27/19 12:33:00 07/27/19 12:33:00 Time Out 07/27/19 14:04:00 07/27/19 14:04:00 07/27/19 14:04:00 Procedure Hernia Repair Hernia Repair Hernia Repair Inguinal(Left) Inguinal(Left) Inguinal(Left) Other Attendee Tony Baldwin - STITCHER SPECIAL MACHINE Student Superficial Wound Closed By: Last Modified By: Bruce Mcintosh RN Harover, Michael, RN Harover, Michael, RN 07/27/19 14:04:43 07/27/19 14:04:43 07/27/19 14:04:43 Entry 7 Entry 8 Entry 9 Case Attendee Jolene Herman RN Harover, Michael, Kiley Rollins, -ERVIN Role Performed Arterial Embalmer, First Arterial Embalmer, Second Call Center Professional, Ancillary Time In 07/27/19 12:33:00 07/27/19 13:05:00 07/27/19 12:33:00 Time Out 07/27/19 14:04:00 07/27/19 14:04:00 07/27/19 14:04:00 Procedure Hernia Repair Hernia Repair Hernia Repair Inguinal(Left) Inguinal(Left) Inguinal(Left) Other Attendee [facility] Superficial Wound Closed By: Last Modified By: Bruce Mcintosh RN Harover, Michael, RN Harover, Michael, RN 07/27/19 14:04:43 07/27/19 14:04:43 07/27/19 14:04:43 Entry 10 Case Attendee OTHER, ATTENDEE #2 Role Performed Call Center Professional, Ancillary Time In 07/27/19 12:33:00 Time Out 07/27/19 14:04:00 Procedure Hernia Repair Inguinal(Left) Other Attendee Bernard Paez [facility] Superficial Wound Closed By: Last Modified By: Bruce Mcintosh RN 07/27/19 14:04:43 [facility] IntraOp Case Attendance Audit 07/27/19 14:04:43 Safety Equipment Testing Specialist: [id number] Modifier: [id number] 1 <+> Time Out 1 <*> Procedure [...] <*> Procedure Hernia Repair Inguinal(Left) 07/27/19 13:52:33 Safety Equipment Testing Specialist: [id number] Modifier: [id number] <+> 1 Procedure <+> 2 Procedure <+> 3 Procedure <+> 4 Procedure <+> 5 Procedure <+> 6 Procedure <+> 7 Procedure <+> 8 Procedure <+> 9 Procedure <+> 10 Procedure 07/27/19 13:52:16 Safety Equipment Testing Specialist: [id number] Modifier: [id number] 1 <-> Procedure Hernia Repair Inguinal Robotic(Left) [...] Procedure Hernia Repair Inguinal Robotic(Left) 07/27/19 13:34:12 Safety Equipment Testing Specialist: [id number] Modifier: [id number] 1 <*> Procedure Hernia Repair Inguinal Robotic(Left), [...] Robotic(Left), Hernia Repair Inguinal Robotic(Left) 07/27/19 13:33:52 Safety Equipment Testing Specialist: [id number] Modifier: [id number] 1 <*> Procedure Hernia Repair Inguinal Robotic(Left) [...] Procedure Hernia Repair Inguinal Robotic(Left) 07/27/19 13:32:28 Safety Equipment Testing Specialist: [id number] Modifier: [id number] <+> 1 Procedure 2 <*> Procedure Hernia [...] Procedure Hernia Repair Inguinal Robotic(Left) 07/27/19 13:23:00 Safety Equipment Testing Specialist: [id number] Modifier: [id number] <+> 6 Procedure 7 <+> Time In 7 <*> Procedure Hernia Repair Inguinal Robotic(Left) 8 <*> Procedure Hernia Repair Inguinal Robotic(Left) 9 <+> Time In 9 <*> Procedure Hernia Repair Inguinal Robotic(Left) 10 <+> Time In 10 <*> Procedure Hernia Repair Inguinal Robotic(Left) 07/27/19 13:22:59 Safety Equipment Testing Specialist: [id number] Modifier: [id number] 2 <+> Time In 2 <*> Procedure Hernia Repair Inguinal Robotic(Left) 3 <+> Time In 3 <*> Procedure Hernia Repair Inguinal Robotic(Left) 4 <+> Time In 4 <*> Procedure Hernia Repair Inguinal Robotic(Left) 5 <+> Time In 5 <*> Procedure Hernia Repair Inguinal Robotic(Left) 6 <+> Time In 6 <-> Procedure Hernia Repair Inguinal Robotic(Left) 07/27/19 13:22:53 Safety Equipment Testing Specialist: [id number] Modifier: [id number] <+> 1 Time In <+> 2 Case [...] <+> 10 Procedure <+> 10 Other Attendee [facility] IntraOp Case Times Entry 1 Patient In Room Time 07/27/19 12:33:00 Out Room Time 07/27/19 14:04:00 Anesthesia Start Time 07/27/19 12:33:00 Stop Time 07/27/19 14:04:00 Surgery / Procedure Times Start Time 07/27/19 13:11:00 Stop Time 07/27/19 14:01:00 Last Modified By: Bruce Mcintosh RN 07/27/19 14:04:41 [facility] IntraOp Case Times Audit 07/27/19 14:04:41 Safety Equipment Testing Specialist: [id number] Modifier: [id number] <+> 1 Out Room Time <+> 1 Stop Time 07/27/19 14:01:59 Safety Equipment Testing Specialist: [id number] Modifier: [id number] <+> 1 Stop Time [facility] IntraOp Cautery Entry 1 ESU Identification Cautery Type Monopolar ESU ID Number [id number] ID Type Hospital Number Cautery Settings Cut Setting 3 Coag Setting 3 ESU Grounding Pad Ground Pad Type Adult Grounding Pad Site Right thigh Grounding Pad Site posterior Comment Grounding Pad Jolene Herman RN Applied By Grounding Pad Site Warm, Dry, Intact Skin Condition Before Cautery Grounding Pad Site Unchanged Skin Condition After Cautery Last Modified By: Bruce Mcintosh RN 07/27/19 13:24:49 [facility] IntraOp Communication Entry 1 Entry 2 Communication To Family/Significant other Family/Significant other Comment start Communication By Jolene Herman, Jolene Osorio, SHERI Date and Time 07/27/19 13:20:00 07/27/19 13:56:00 Last Modified By: Bruce Mcintosh RN Harover, Michael, RN 07/27/19 13:26:23 07/27/19 14:02:21 [facility] IntraOp Communication Audit 07/27/19 14:02:21 Safety Equipment Testing Specialist: [id number] Modifier: [id number] <+> 2 Communication By <+> 2 Date and Time <+> 2 Communication To [facility] IntraOp Counts Verification Entry 1 Procedure Hernia Repair Inguinal(Left) Count Info Count Type Sponge, Sharps, Miscellaneous Counts Verification Baseline/pre-procedure Sequence Count Results Correct, surgeon notified Counts Performed By Count Performed By Tr Mobley, Surgical (Scrub) Call Center Professional Count Performed By Jolene Herman RN (RN) Last Modified By: Bruce Mcintosh RN 07/27/19 13:52:34 [facility] IntraOp Counts Verification Audit 07/27/19 13:52:34 Safety Equipment Testing Specialist: [id number] Modifier: [id number] <+> 1 Procedure 07/27/19 13:52:16 Safety Equipment Testing Specialist: [id number] Modifier: [id number] 1 <-> Procedure Hernia Repair Inguinal Robotic(Left) 07/27/19 13:34:13 Safety Equipment Testing Specialist: [id number] Modifier: [id number] 1 <*> Procedure Hernia Repair Inguinal Robotic(Left), Hernia Repair Inguinal Robotic(Left) 07/27/19 13:33:54 Safety Equipment Testing Specialist: [id number] Modifier: [id number] 1 <*> Procedure Hernia Repair Inguinal Robotic(Left) [facility] IntraOp Counts Final Entry 1 Procedure Hernia Repair Inguinal(Left) Final Count Info Count Type Sponge, Sharps, Miscellaneous Counts Verification Skin Closure/end of Sequence procedure Count Results Correct, surgeon notified Counts Performed By Count Performed By Tr Mobley, Surgical (Scrub) Call Center Professional Count Performed By Bruce Mcintosh RN (RN) Last Modified By: Bruce Mcintosh RN 07/27/19 13:56:27 [facility] IntraOp Delays Entry 1 Delay Reason OR staff not available Duration 15 Minute(s) Last Modified By: Bruce Mcintosh RN 07/27/19 13:14:42 [facility] IntraOp Departure from OR Entry 1 Integumentary Assessment Integumentary WDL Assessment WDL Transfer/Handoff Transfer to PACU Phase I Handoff Method Bedside/Face to face, Phone call, Online nursing summary Post-op Transport Stretcher/Gurney Via Patient Transport TED GREY, Accompanied by Octavia Daniels Crna Last Modified By: Bruce Mcintosh RN 07/27/19 13:28:18 [facility] IntraOp Departure from OR Audit 07/27/19 13:28:18 Safety Equipment Testing Specialist: [id number] Modifier: [id number] <+> 1 Handoff Method [facility] IntraOp Dressing and Packing Entry 1 Type Dressing Location OPSITE Wound Dressing Item Skin Closure Glue Applied By TED GREY Last Modified By: Bruce Mcintosh RN 07/27/19 14:01:19 [facility] IntraOp Fire Risk Assessment Entry 1 [...] Modified By: Bruce Mcintosh RN 07/27/19 13:28:33 [facility] IntraOp Fire Risk Assessment Audit 07/27/19 13:28:33 Safety Equipment Testing Specialist: [id number] Modifier: [id number] <+> 1 Fire Risk Assessment Verified Date/Time [facility] IntraOp General Case Steaming Machine Operator 1 Case Information OR OR 12 [facility] Case Level 1 Room Verified Yes Wound Class I - Clean Specialty SN General Anesthesia Type General ASA Class 2 Diagnosis Preop Diagnosis left inguinal hernia Postop Same As Preop No Postop Diagnosis see MD post operative notes Last Modified By: Bruce Mcintosh RN 07/27/19 13:29:48 [facility] IntraOp Implant Log Entry 1 Type Implant (Synthetic) Implant Log Implant MESH JORDANA PRE-SHP Identification [id number] Description Implant Quantity 1 Implant Site op site - left groin Implant [id number] Identification Lot Number Implant [employer] Identification Chicken Vaccinator Name: Implant [id number] Identification Catalog Number Implant Has an Yes Expiration Date Implant Expiration 06/17/21 Date Tissue Implant Last Modified By: Bruce Mcintosh RN 07/27/19 13:42:57 [facility] IntraOp Intraoperative Assessment Entry 1 Handoff [...] Modified By: Bruce Mcintosh RN 07/27/19 13:30:06 [facility] IntraOp Intraoperative Equipment Entry 1 Type Monitoring Equipment Equipment Tatyana Suction System ID Number [id number] Intraop Monitoring Blood Pressure Non-Invasive BP Device Source Blood Pressure Arm, right upper Location Pulse Oximeter Hand, left Probe Site Antiembolic Devices Antiembolic Devices Sequential compression device, knee high Antiembolic Device Bilateral Location Antiembolic Device [id number] ID Number Antiembolic Device SCD'S ON AND WORKING Setting PRIOR TO INDUCTION Scopes Photo/Video Documentation Photo No Video No Last Modified By: Bruce Mcintosh RN 07/27/19 13:31:40 [facility] IntraOp Medication Admin Entry 1 Medication/Irrigant Marcaine 0.5% w/ epinephrine 1:200,000 30ml vial - [id number] Route of local Administration Dose Dose 26 Unit of Measure ml Administered By TAHIRA PARSONS MD-SUR Procedure Irrigation Last Modified By: Bruce Mcintosh RN 07/27/19 13:49:34 [facility] IntraOp Patient Positioning Entry 1 Procedure Hernia Repair Inguinal(Left) Body Position Supine Left Arm Position Tucked and padded at side Right Arm Position Tucked and padded at side Left Leg Position Uncrossed, parallel Right Leg Position Uncrossed, parallel Feet Uncrossed Yes Pressure Points Yes Checked Positioning Devices Head Rest, Safety Strap, Thighs, Pad, Arm Device Position FOAM POSITIONING MATTRESS Positioned By Octavia Daniels, Virgil Ha Hazel, RN, TED GREY, TAHIRA PARSONS MD-TREVOR Position Verified Positioning Yes Verified by Anesthesia Positioning Yes Verified by Surgeon Last Modified By: Bruce Mcintosh RN 07/27/19 13:52:34 [facility] IntraOp Patient Positioning Audit 07/27/19 13:52:34 Safety Equipment Testing Specialist: [id number] Modifier: [id number] <+> 1 Procedure 07/27/19 13:52:17 Safety Equipment Testing Specialist: [id number] Modifier: [id number] 1 <-> Procedure Hernia Repair Inguinal Robotic(Left) 07/27/19 13:34:14 Safety Equipment Testing Specialist: [id number] Modifier: [id number] 1 <*> Procedure Hernia Repair Inguinal Robotic(Left), Hernia Repair Inguinal Robotic(Left) 07/27/19 13:33:55 Safety Equipment Testing Specialist: [id number] Modifier: [id number] 1 <*> Procedure Hernia Repair Inguinal Robotic(Left) [facility] IntraOp Sign In Entry 1 Patient, [...] Modified By: Bruce Mcintosh RN 07/27/19 13:32:41 [facility] IntraOp Sign Out Entry 1 RN [...] Modified By: Bruce Mcintosh RN 07/27/19 14:05:09 [facility] IntraOp Sign Out Audit 07/27/19 14:05:09 Safety Equipment Testing Specialist: [id number] Modifier: [id number] <+> 1 RN Sign Out Signature <+> 1 RN Sign Out Signature Date/Time <+> 1 Urinary Catheter Documented in IView [facility] IntraOp Skin Prep Entry 1 Procedure Hernia Repair Inguinal(Left) Prescribed Yes Pre-Surgical Prep Completed Prep Area ABDOMEN AND OPERTIVE SIDE GROIN Intraop Prep Integumentary WDL Assessment WDL Prep Agents Chloraprep Prep by TAHIRA PARSONS MD-TREVOR Hair Removal Methods No hair removal performed Last Modified By: Bruce Mcintosh RN 07/27/19 13:52:35 [facility] IntraOp Skin Prep Audit 07/27/19 13:52:35 Safety Equipment Testing Specialist: [id number] Modifier: [id number] <+> 1 Procedure 07/27/19 13:52:17 Safety Equipment Testing Specialist: [id number] Modifier: [id number] 1 <-> Procedure Hernia Repair Inguinal Robotic(Left) 07/27/19 13:34:14 Safety Equipment Testing Specialist: [id number] Modifier: [id number] 1 <*> Procedure Hernia Repair Inguinal Robotic(Left), Hernia Repair Inguinal Robotic(Left) 07/27/19 13:33:55 Safety Equipment Testing Specialist: [id number] Modifier: [id number] 1 <*> Procedure Hernia Repair Inguinal Robotic(Left) [facility] IntraOp Surgical Procedures Entry 1 Procedure Hernia Repair Inguinal Modifiers Left Additional attempt lap/robot Procedure convert to open left Description inguinal hernia repair with mesh Primary Procedure Yes Primary Surgeon TAHIRA PARSONS MD-SUR Start 07/27/19 13:11:00 Stop 07/27/19 14:01:00 Anesthesia Type General Specialty SN General Wound Class I - Clean Last Modified By: Bruce Mcintosh RN 07/27/19 14:02:01 [facility] IntraOp Surgical Procedures Audit 07/27/19 14:02:01 Safety Equipment Testing Specialist: [id number] Modifier: [id number] <+> 1 Stop 07/27/19 13:52:28 Safety Equipment Testing Specialist: [id number] Modifier: [id number] 1 <*> Procedure Hernia Repair Inguinal Robotic 1 <*> Additional Procedure Description (ROBOTIC ASSISTED LAPAROSCOPIC LT INGUINAL HERNIA REPAIR WITH MESH) 07/27/19 13:34:29 Safety Equipment Testing Specialist: [id number] Modifier: [id number] 1 <*> Procedure Hernia Repair Inguinal Robotic [...] INGUINAL HERNIA REPAIR WITH MESH 07/27/19 13:33:46 Safety Equipment Testing Specialist: [id number] Modifier: [id number] <+> 2 Procedure <+> 2 Primary Procedure <+> 2 Modifiers <+> 2 Primary Surgeon <+> 2 Specialty <+> 2 Start <+> 2 Wound Class <+> 2 Anesthesia Type <+> 2 Additional Procedure Description [facility] IntraOp Temp Regulation Devices Entry 1 Temp Regulation Temperature Forced Air Warming Regulation Device device, Warm blankets Temperature 10830 Regulation Device Serial/Unit Number Temperature Upper body Regulation Site Temperature Device SET AND MONITORED BY Setting ANESTHESIA Temperature Octavia Daniels Crna Regulation Device Applied by Last Modified By: Bruce Mcintosh RN 07/27/19 13:34:42 [facility] IntraOP Time Out Entry 1 Procedure [...] Modified By: Bruce Mcintosh RN 07/27/19 13:52:35 [facility] IntraOP Time Out Audit 07/27/19 13:52:35 Safety Equipment Testing Specialist: [id number] Modifier: [id number] <+> 1 Procedure to be Performed 07/27/19 13:52:17 Safety Equipment Testing Specialist: [id number] Modifier: [id number] 1 <-> Procedure to be Performed Hernia Repair Inguinal Robotic(Left) 07/27/19 13:36:28 Safety Equipment Testing Specialist: [id number] Modifier: [id number] 1 <+> Beta Jesus Administered 1 <+> [...] for Unfinalizing 07/30/19 12:58 WATTSDR Correct Billing documented in this encounter Plan of Treatment Not on file documented as of this encounter Visit Diagnoses Not on filedocumented in this encounter Care Teams Head Golf Coach Relationship Specialty Start Date End Date Bruce Garcia MD [address] [place] [address] Medical Oncologist Hematology and Oncology 05/05/22 Raya Eaton, PA-C [address] [address] Physician Bottler Helper Oncology 05/05/22 Luz Suarez, RN Nurse Navigator Oncology 07/02/22 Berkley Alfonos, SHERI Registered Nurse Oncology 07/02/22 documented as of this encounter
--- OUTSIDE RECORDS SUMMARY | 2024-11-01 13:58 | XMS_ITS | Encounter Summary ---
Author Organization [email or web address] ([place], [place], [place], [place]) Address [address] [place] [address] Care Team Providers Care Public Relations Consultant Name Role Phone Bruce Garcia MD Unavailable Raya Eaton PA-C Unavailable [phone] Luz Suarez RN Unavailable Unavailable Berkley Alfonso RN Unavailable Unavailable Encounter Details Date Type Department Care Team (Late st Contact Info) Description 07/26/2019 Transcribed Document [facility] [place] [address] [place] [address] ProviderJarret MD [address] [place] [address] Social History Tobacco Use Types Packs/Day Years Used Date Smoking Tobacco: Never Assessed Sex and Gender Information Value Date Recorded Sex Assigned at Not on file Legal Sex Male 5:24 PM CDT Gender Identity Not on file Sexual Orientation Not on file documented as of this encounter Miscellaneous Notes * Cerner Conversion Note - Jarret ProviderMD - 07/26/2019 1:51 PM CDT PAT [...] Body Mass Index : 26.9 kg/m2 (HI) [place] Body Weight : 74 kg MARY Valdovinos RN - 07/27/2019 11:12 EDT Height Source : Measured Height Entry Format : [place] Weight Source : Standing scale Weight Entry Format : [place] MARY Valdovinos RN - 07/26/2019 13:51 EDT [...] MARY Valdovinos RN - 07/26/2019 13:51 EDT [place] Suicide Severity Rating Scale (C-SSRS) CSSRS Past [...] Ambulatory Legal Guardian : Unaccompanied Support Person/Patient Fire Investigation Manager : Yes Support Person/Pt Rep Name : Josey Toribio, spouse Support Person/Pt Rep Contact Information : [phone] Want Family/Rep/Phys Notified of Admit : No Emergency Contact #1 : ` Emergency Contact #1 Phone Number : ` Emergency Contact #1 Relationship : ` Emergency Contact #2 : ` Emergency Contact #2 Phone Number : ` Emergency Contact #2 Relationship : ` Primary Language : Bahraini Preferred Communication Mode : Verbal Communication Barrier [...] MARY Valdovinos RN - 07/26/2019 13:51 EDT documented in this encounter Plan of Treatment Not on file documented as of this encounter Visit Diagnoses Not on filedocumented in this encounter Care Teams Public Relations Consultant Relationship Specialty Start Date End Date Bruce Garcia MD [address] [facility] [address] [facility] [address] Medical Oncologist Hematology and Oncology 05/05/22 Raya Eaton, PAVictoria [address] [place] [address] Physician Top Knitter Oncology 05/05/22 Luz Suarez, RN Nurse Navigator Oncology 07/02/22 Berkley Alfonso, RN Registered Nurse Oncology 07/02/22 documented as of this encounter
--- OUTSIDE RECORDS SUMMARY | 2024-11-01 13:58 | XMS_ITS | Encounter Summary ---
Author Organization [employer] ([place], [place], [place], [place]) Address [address] [place] [address] Care Team Providers Care Factory Laborer Name Role Phone Bruce Garcia MD Unavailable Raya Eaton PA-C Unavailable [phone] Luz Suarez RN Unavailable Unavailable Berkley Alfonso RN Unavailable Unavailable Encounter Details Date Type Department Care Team (Late st Contact Info) Description 07/27/2019 Transcribed Document [facility] Family Medicine [address] [place] [address] Jarret Sotelo MD [address] [place] [address] Social History Tobacco Use Types [...] activities are safe for you. ??? Take zvhv-mnt-fyjaeav and prescription medicines only as told by [...] 05/31/2001 Document Revised: 10/08/2017 Document Reviewed: 10/08/2017 [employer] Interactive Patient Education ? 2019 [employer]. Gastroenterology Open Hernia Repair, Adult, Care After [...] cannot use soap and water, use hand basting machine operator. ? Change your bandage as told by [...] (urine) clear or pale yellow. ? Take lgcx-rhe-usujcsz or prescription medicines. ? Eat foods that are high in fiber, such as fresh fruits and vegetables, whole grains, and beans. ? Limit foods that are high in fat and processed sugars, such as fried and sweet foods. ??? Take iquj-djv-vtsyckd and prescription medicines only as told by [...] 03/15/2015 Document Revised: 09/11/2016 Document Reviewed: 08/05/2016 [employer] Interactive Patient Education ? 2019 [employer] documented in this encounter Plan of Treatment Not on file documented as of this encounter Visit Diagnoses Not on filedocumented in this encounter Care Teams Factory Laborer Relationship Specialty Start Date End Date Bruce Garcia MD [address] [facility] [address] [place] [address] Medical Oncologist Hematology and Oncology 05/05/22 Raya Eaton, PA-C [address] [place] [address] Physician Oyster Harvester Oncology 05/05/22 Luz Suarez, RN Nurse Navigator Oncology 07/02/22 Berkley Alfonso, RN Registered Nurse Oncology 07/02/22 documented as of this encounter
--- OUTSIDE RECORDS SUMMARY | 2024-11-01 13:59 | XMS_ITS | Encounter Summary ---
Author Organization [email or web address] ([place], [place], [place], [place]) Address [address] [place] [address] Care Team Providers Care Ordnance Handler Name Role Phone Bruce Garcia MD Unavailable Raya Eaton PA-C Unavailable [phone] Luz Suarez RN Unavailable Unavailable Berkley Alfonso RN Unavailable Unavailable Encounter Details Date Type Department Care Team (Late st Contact Info) Description 07/27/2019 Transcribed Document [facility] [address] [place] [address] ProviderJarret MD [address] [place] [address] Social History Tobacco Use Types Packs/Day Years Used Date Smoking Tobacco: Never Assessed Sex and Gender Information Value Date Recorded Sex Assigned at Not on file Legal Sex Male 5:24 PM CDT Gender Identity Not on file Sexual Orientation Not on file documented as of this encounter Miscellaneous Notes * Cerner Conversion Note - Jarret ProviderMD - 07/27/2019 3:31 PM CDT [facility] [place] [address] MIGUEL ÁNGEL TORIBIO :1945 Visit Time:07/27/2019 What [...] activities are safe for you. ??? Take ique-tjr-iekzqli and prescription medicines only as told by [...] 05/31/2001 Document Revised: 10/08/2017 Document Reviewed: 10/08/2017 [employer] Patient Education ?? 2019 [employer] Open Hernia Repair, Adult, Care After [...] cannot use soap and water, use hand international marketing manager. ? Change your bandage as told by [...] (urine) clear or pale yellow. ? Take ynxh-yyw-phntkbt or prescription medicines. ? Eat foods that are high in fiber, such as fresh fruits and vegetables, whole grains, and beans. ? Limit foods that are high in fat and processed sugars, such as fried and sweet foods. ??? Take daxl-mst-cirilnr and prescription medicines only as told by [...] 03/15/2015 Document Revised: 09/11/2016 Document Reviewed: 08/05/2016 [employer] Interactive Patient Education ?? 2019 [employer]. acetaminophen and hydrocodone (a SEET a MIN oh fen and arron droe KOE done) Hycet, Lorcet, [place], Verdrocet, Vicodin, Xodol, Zamicet What is the [...] may report side effects to FDA at 3-641-EOQ-4658. What other drugs will affect acetaminophen and [...] affect acetaminophen and hydrocodone, including prescription and cicl-dkx-gbavqnf medicines, vitamins, and herbal products. Not all [...] to ensure that the information provided by [employer]. ('[employer]') is accurate, up-to-date, and complete, but no guarantee is made to that effect. Drug information contained herein may be time sensitive. [employer] information has been compiled for use by healthcare practitioners and consumers in the [place] and therefore [employer] does not warrant that uses outside of the [place] are appropriate, unless specifically indicated otherwise. [employer] drug information does not endorse drugs, diagnose patients or recommend therapy. [employer] drug information is an informational resource designed [...] effective or appropriate for any given patient. [employer] does not assume any responsibility for any aspect of healthcare administered with the aid of information [employer] provides. The information contained herein is not intended to cover all possible uses, directions, precautions, warnings, drug interactions, allergic reactions, or adverse effects. If you have questions about the drugs you are taking, check with your doctor, nurse or pharmacist. Copyright 7020-5812 [employer]INK. Version: 16.01. Revision Date: 03/29/2019. Emergency Awareness [...] Assistance with quitting is available by contacting 3-294-HZSB-NOW. This is a free resource providing counseling, [...] was given the opportunity to ask questions. Patient/Envelope Folding Machine Operator Name: Patient/Envelope Folding Machine Operator Signature: Relationship to Patient: Clinician/Hospital Envelope Folding Machine Operator Signature: Date: documented in this encounter Plan of Treatment Not on file documented as of this encounter Visit Diagnoses Not on filedocumented in this encounter Care Teams Ordnance Handler Relationship Specialty Start Date End Date Bruce Garcia MD [address] [facility] [address] [place] [address] Medical Oncologist Hematology and Oncology 05/05/22 Raya Eaton, PA-C [address] [facility] [address] [place] [address] Physician Workers Compensation Paralegal Oncology 05/05/22 Luz Suarez, RN Nurse Navigator Oncology 07/02/22 Berkley Alfonso, RN Registered Nurse Oncology 07/02/22 documented as of this encounter
--- OUTSIDE RECORDS SUMMARY | 2024-11-01 13:59 | XMS_ITS | Encounter Summary ---
Author Organization [employer] ([place], [place], [place], [place]) Address [address] [place] [address] Care Team Providers Care Mattress Renovator Name Role Phone Bruce Garcia MD Unavailable Raay Eaton PA-C Unavailable [phone] Luz Suarez RN Unavailable Unavailable Berkley Alfonso RN Unavailable Unavailable Encounter Details Date Type Department Care Team (Late st Contact Info) Description 07/27/2019 Transcribed Document [facility] [place] Family Medicine [address] [place] [address] ProviderJarret MD [address] [place], [place] [address] Social History Tobacco Use Types Packs/Day Years Used Date Smoking Tobacco: Never Assessed Sex and Gender Information Value Date Recorded Sex Assigned at Not on file Legal Sex Male 5:24 PM CDT Gender Identity Not on file Sexual Orientation Not on file documented as of this encounter Miscellaneous Notes * Cerner Conversion Note - Jarret ProviderMD - 07/27/2019 1:11 PM CDT [facility] Main OR PACU Summary Primary Physician: TAHIRA PARSONS MD-SUR Finalized Date/Time: 07/27/19 15:37:21 Pt. Name: RENE TORIBIO/Sex: 1945 Male Med Rec #: [id number] Physician: TAHIRA PARSONS MD-SUR Financial #: [id number] Pt. Type: O Room/Bed: Admit/Disch: 07/27/19 10:27:00 - Institution: [facility] Main OR PACU I Case Times Entry 1 In PACU I 07/27/19 14:05:00 Ready for PACU 07/27/19 15:15:00 Discharge Discharge from PACU 07/27/19 15:15:00 I Last Modified By: ZAHIDA TAVERAS RN 07/27/19 15:37:09 Finalized By: ZAHIDA TAVERAS, RN Document Signatures Signed By: ZAHIDA TAVERAS RN 07/27/19 15:37 Electronically signed by Cecille [facility] Conversion Cotton Grader Cerner at 06/23/2022 8:03 PM CDT documented in this encounter Plan of Treatment Not on file documented as of this encounter Visit Diagnoses Not on filedocumented in this encounter Care Teams Mattress Renovator Relationship Specialty Start Date End Date Bruce Garcia MD [address] [place] [address] Medical Oncologist Hematology and Oncology 05/05/22 Raya Eaton, PA-C [address] [facility] [address] [facility] [address] [place] [address] Physician Retirement Specialist Oncology 05/05/22 Luz Suarez, RN Nurse Navigator Oncology 07/02/22 Berkley Alfonso, SHERI Registered Nurse Oncology 07/02/22 documented as of this encounter
[2024-11-01 14:15] LABS: Albumin Level 3.9 g/dl (3.5-5.0); Chloride 107 mmol/L (98-107); Hematocrit 39.5 % (42.0-52.0); Hemoglobin 12.6 g/dL (14.1-18.0); Immature Granulocytes % 1.2 %; Mean Corpuscular HGB Conc 31.9 g/dL (31.8-35.4); Mean Corpuscular Hemoglobin 29.1 pg (27.0-31.2); Mean Corpuscular Volume 91.2 fl (80-94); Nucleated Red Blood Cells % 0 %; Platelet Count 199 K/mm3 (142-424); Potassium 4.0 mmoL/L (3.5-5.1); Red Blood Count 4.33 M/mm3 (4.60-6.20); Red Cell Distribution Width-SD 44.3 fL; Sodium 139 mmol/L (136-145); White Blood Count 5.1 K/mm3 (4.8-10.8)
[2024-11-01 14:17] LABS: Blood Urea Nitrogen 16 mg/dl (9-20); Creatinine,Serum 1.00 mg/dl (0.66-1.25); Estimated Glomerular Filt Rate 72 ml/min (>60); GFR (African American) 88 ML/MIN (>60)
[2024-11-01 14:18] LABS: Alanine Aminotransferase 18 U/L (12-78); Albumin/Globulin Ratio 1.7 (1.1-1.8); Alkaline Phosphatase 38 U/L (38-126); Anion Gap 10.0 mEq/L (5-15); Aspartate Amino Transferase 41 U/L (17-59); Bilirubin,Total 0.6 mg/dl (0.2-1.3); Calcium 9.2 mg/dl (8.4-10.2); Carbon Dioxide 26 mmol/L (22.0-30.0); Globulin 2.3 g/dL (1.3-3.2); Glucose 166 mg/dl (74-100); Total Protein,Serum 6.2 g/dl (6.3-8.2)
[2024-11-01 14:48] LABS: Prostate Specific Ag, Diagnost 8.08 ng/ml (0.0-4.0)
== END 2024-11-01 14:00 | disposition home or self-care (01) ==
LOC: INF 13:54
PROVIDERS: Visit Provider Internal Medicine Medical Oncology
DX: C79.82 Secondary malignant neoplasm of genital organs (principal)
CPT/HCPCS: 36415; 80053; 84153; 85025

== ENCOUNTER 2024-11-30 14:47 | Outpatient (CLI) | payer MEDICARE, SELFPAY ==
[2024-11-30] MEDS: DENOSUMAB 120MG/1.7ML VIAL 120 MG SUBCUT (15:59)
[2024-11-30 16:00] VITALS: BP 134/76; PULSE 58; RESP 17; O2SAT 97
== END 2024-11-30 23:59 | disposition home or self-care (01) ==
LOC: INF 14:48
PROVIDERS: Visit Provider Internal Medicine Medical Oncology
DX: C79.82 Secondary malignant neoplasm of genital organs (principal); C80.1 Malignant (primary) neoplasm, unspecified
CPT/HCPCS: 96372; J0897

== ENCOUNTER 2025-02-08 13:12 | Outpatient (CLI) | payer MEDICARE, SELFPAY ==
--- NOTE | 2025-02-08 13:18 | PC.NURSE ---
1318-COLLECTED LABS VIA VENIPUNCTURE STICK IN LEFT AC WITH BUTTERFLY NEEDLE
--- OUTSIDE RECORDS SUMMARY | 2025-02-08 13:18 | XMS_ITS | Encounter Summary ---
Author Organization [employer] ([place], [place], [place], [place], [place]) Address [address] [place] [address] Care Team Providers Care Social Media Assistant Name Role Phone Bruce Garcia MD Unavailable Raya Eaton PA-C Unavailable [phone] Luz Suarez RN Unavailable Unavailable Berkley Alfonso RN Unavailable Unavailable Encounter Details Date Type Department Care Team (Late st Contact Info) Description 07/27/2019 Transcribed Document [facility] [place] [facility] [place] [address] ProviderJarret MD [address] [place], [place] [id number] Social History Tobacco Use Types Packs/Day Years [...] 1945 Associated Diagnoses: None Author: SHAI REYEZ, SURGERY ASSISTANT Chief Complaint LIH Review of Systems ROS [...] All Problems Seasonal allergies / SNOMED CT 252125661 / Confirmed especially in the fall and spring Inguinal hernia / SNOMED CT 7225293515 / Confirmed Hyperlipidemia / SNOMED CT 87726062 / Confirmed High blood pressure / SNOMED CT 35008815 / Confirmed Disorder of prostate / SNOMED CT 16571019 / Confirmed CA - Cancer of prostate / SNOMED CT 6345019376 / Confirmed CA - Cancer of prostate / SNOMED CT 8791481983 / Confirmed Back pain / SNOMED CT 233383774 / Confirmed, Active Problems (8) Back pain [...] EDT Height Source Measured Height Entry Format Marion Height/Length, TANZANIAN (ft) 5 ft Height/Length TANZANIAN 11 Inch CLINICALHEIGHT 180.34 cm [place]uit Body Weight 74 kg Weight Source Standing scale Weight Entry Format Marion Weight Ukrainian lb 192.4 lb CLINICALWEIGHT 87.45 kg Body Surface Area (BSA) 2.08 m2 Body Mass Index 26.9 kg/m2 HI 07/26/2019 13:51 EDT Height Source Measured Height Entry Format Marion Weight Source Standing scale Weight Entry Format Marion General: Alert and oriented, No acute distress. Eye: Pupils are equal, round and reactive to light, Extraocular movements are intact, glasses. HENT: Normocephalic, slightly [place]. Neck: Supple, Non-tender. Respiratory: Lungs are clear to auscultation, Respirations are non-labored. Cardiovascular: Normal rate, Regular rhythm, No murmur, No gallop, No edema. Gastrointestinal: Soft, Non-tender, LIH. Genitourinary: No costovertebral angle tenderness. Lymphatics: No lymphadenopathy neck, axilla, groin. Musculoskeletal: Normal range of motion, Normal strength. Integumentary: Warm, Dry, [place]. Neurologic: Alert, Oriented. Psychiatric: Cooperative, Appropriate mood & affect. Review / Management Results review: No qualifying data available. Impression and Plan Condition: Stable. documented in this encounter Plan of Treatment Not on file documented as of this encounter Visit Diagnoses Not on filedocumented in this encounter Care Teams Social Media Assistant Relationship Specialty Start Date End Date Bruce Garcia MD [address] [facility] [address] [place] [address] Medical Oncologist Hematology and Oncology 05/05/22 Raya Eaton, PACaroleeC [address] [facility] [address] [place] [address] Physician Prototype Machinist Oncology 05/05/22 Luz Suarez, RN Nurse Navigator Oncology 07/02/22 01/18/25 Berkley Alfonso, RN Registered Nurse Oncology 07/02/22 documented as of this encounter
--- OUTSIDE RECORDS SUMMARY | 2025-02-08 13:18 | XMS_ITS | Encounter Summary ---
Author Organization [employer] ([place], [place], [place], [place], [place]) Address [address] [place] [address] Care Team Providers Care Global Security Architect Name Role Phone Bruce Garcia MD Unavailable Raya Eaton PA-C Unavailable [phone] Luz Suarez RN Unavailable Unavailable Berkley Alfonso RN Unavailable Unavailable Encounter Details Date Type Department Care Team (Late st Contact Info) Description 07/27/2019 Transcribed Document [facility] [place] Family Medicine [address] [place] [address] ProviderJarret MD [address] [place] [address] Social History Tobacco Use Types [...] Source : Measured Height Entry Format : Charlotte Height, Feet : 5 ft(Converted to: 152 cm, 60 Inch) Height, Inches : 11 Inch(Converted to: 0 ft 11 Inch, 27.94 cm) Clinical Height : 180.34 cm Weight Source : Standing scale Weight Entry Format : Charlotte Clinical Dosing Weight : 87.45 kg Weight, Pounds : 192.4 lb Body Surface Area (BSA) : 2.08 m2 Body Mass Index : 26.9 kg/m2 (HI) Badger Body Weight : 74 kg MARY Valdovinos, RN - 07/27/2019 11:11 EDT Electronically signed by [facility] Conversion Wind Turbine Erector Cerner at 06/23/2022 8:05 PM CDT documented in this encounter Plan of Treatment Not on file documented as of this encounter Visit Diagnoses Not on filedocumented in this encounter Care Teams Global Security Architect Relationship Specialty Start Date End Date Bruce Garcia MD [address] [address] Medical Oncologist Hematology and Oncology 05/05/22 Raya Eaton, PA-C [address] [place] [address] Physician Insole Rounder Oncology 05/05/22 Luz Suarez, RN Nurse Navigator Oncology 07/02/22 01/18/25 Berkley Alfonso RN Registered Nurse Oncology 07/02/22 documented as of this encounter
--- OUTSIDE RECORDS SUMMARY | 2025-02-08 13:18 | XMS_ITS | Encounter Summary ---
Author Organization [email or web address] ([place], [place], [place], [place], [place]) Address [address] [place] [address] Care Team Providers Care Laundry Or Dry Cleaners Counter Clerk Name Role Phone Bruce Garcia MD Unavailable Raya Eaton PA-C Unavailable [phone] Luz Suarez RN Unavailable Unavailable Berkley Alfonso RN Unavailable Unavailable Encounter Details Date Type Department Care Team (Late st Contact Info) Description 07/27/2019 Transcribed Document [facility] [place] [address] [place] [address] ProviderJarret MD [address] [place], [place] [id number] Social History Tobacco Use Types Packs/Day Years Used Date Smoking Tobacco: Never Assessed Sex and Gender Information Value Date Recorded Sex Assigned at Not on file Legal Sex Male 5:24 PM CDT Gender Identity Not on file Sexual Orientation Not on file documented as of this encounter Miscellaneous Notes * Cerner Conversion Note - Jarret ProviderMD - 07/27/2019 1:11 PM CDT [facility] Main OR PostOp Summary Primary Physician: TAHIRA PARSONS MD-SUR Finalized Date/Time: 07/27/19 16:22:49 Pt. Name: RENE TORIBIO/Sex: 1945 Male Med Rec #: [id number] Physician: TAHIRA PARSONS MD-SUR Financial #: [id number] Pt. Type: O Room/Bed: Admit/Disch: 07/27/19 10:27:00 - 07/27/19 15:54:00 Institution: [facility] Main OR PostOp Case Times Entry 1 In PACU II 07/27/19 15:20:00 Ready for PACU II 07/27/19 15:54:00 Discharge Discharge from PACU 07/27/19 15:54:00 II Last Modified By: Summer Servin RN 07/27/19 16:22:47 Finalized By: Summer Servin RN Document Signatures Signed By: Summer Servin RN 07/27/19 16:22 Electronically signed by Cecille [facility] Conversion Comp Field Case Manager Cerner at 06/23/2022 8:05 PM CDT documented in this encounter Plan of Treatment Not on file documented as of this encounter Visit Diagnoses Not on filedocumented in this encounter Care Teams Laundry Or Dry Cleaners Counter Clerk Relationship Specialty Start Date End Date Bruce Garcia MD [address] [place] [address] Medical Oncologist Hematology and Oncology 05/05/22 Raya Eaton, PA-C [address] [facility] [address] [place] [address] Physician Investment Banking Manager Oncology 05/05/22 Luz Suarez, RN Nurse Navigator Oncology 07/02/22 01/18/25 Berkley Alfonso RN Registered Nurse Oncology 07/02/22 documented as of this encounter
--- OUTSIDE RECORDS SUMMARY | 2025-02-08 13:18 | XMS_ITS | Clinical Summary ---
Author Organization [facility] Address [facility] [place] [address] Care Team Providers Care Sales And Marketing Engineer Name Role Phone Samantha Jaquez Primary Care Provider [phone] Allergies No known active allergies Medications abiraterone [...] Health Maintenance Due Date Last Done Comments Hyperlipidemia Screening/Monitoring 1945 Hepatitis C Screening 08/30/1966 DTaP,Tdap,and Td Vaccines (1 - Tdap) 08/30/1972 CT Colonography 08/30/1992 Cologuard (FIT-DNA) 08/30/1992 Colonoscopy 08/30/1992 Colorectal Cancer Screening 08/30/1992 Fecal Immunochemical Test (FIT) 08/30/1992 Sigmoidoscopy 08/30/1992 Pneumococcal Vaccine: 50+ Years (1 of 1 - PCV) 08/30/1997 Zoster Vaccine (1 of 2) 08/30/1997 Annual Preventive Visit 08/30/2012 RSV Vaccines (1 - 1-dose 75+ series) 08/30/2022 COVID-19 Vaccine ( - season) 2024 01/16/2022, 12/24/2020, 05/01/2020, Additional history exists Influenza [...] patient's age to complete this topic Insurance [facility] MEDICARE Care Teams Sales And Marketing Engineer Relationship Specialty Start Date End Date Samantha Jaquez PA [address] [place] [id number] PCP - General Physician Prosthetics Lab Technician 11/02/20
--- OUTSIDE RECORDS SUMMARY | 2025-02-08 13:18 | XMS_ITS | Referral Summary ---
Author Organization [employer] ([place], [place], [place], [place], [place]) Address [address] [place] [address] Care Team Providers Care Surfboard Designer Name Role Phone Bruce Garcia MD Unavailable Raya Eaton PA-C Unavailable [phone] Berkley Alfonso RN Unavailable Unavailable Allergies Active [...] oz pur e alcohol) Social Connection and Isolation Panel Answer Date Recorded In a typical week, how many times do you talk on the phone with family, friends, or neighbors? More than three times a week 05/06/2022 How often do you get togethe r with friends or relatives? More than three times a week 05/06/2022 How often do you attend chur ch or confucianist services? More than 4 times per year 05/06/2022 Do you belong to any clubs o r organizations such as congregational groups, unions, fraternal or athletic groups, or [...] Date Ethan rded Speak language other than Pashto at home Not on file 03/25/2023 Want [...] Plan of Treatment Not on file Insurance [employer] MEDICARE PPO [employer] MEDICARE HMO Care Teams Surfboard Designer Relationship Specialty Start Date End Date Bruce Garcia MD [address] [facility] [address] [place] [address] Medical Oncologist Hematology and Oncology 05/05/22 Raya Eaton, PA-C [address] [facility] [facility] [address] [place] [address] Physician Yeast Culture Operator Oncology 05/05/22 Berkley Alfonso, RN Registered Nurse Oncology 07/02/22
--- OUTSIDE RECORDS SUMMARY | 2025-02-08 13:18 | XMS_ITS | Encounter Summary ---
Author Organization [employer] ([place], [place], [place], [place], [place]) Address [address] [place] [address] Care Team Providers Care Bag Shaker Name Role Phone Bruce Garcia MD Unavailable Raya Eaton PA-C Unavailable [phone] Luz Suarez RN Unavailable Unavailable Berkley Alfonso RN Unavailable Unavailable Encounter Details Date Type Department Care Team (Late st Contact Info) Description 07/27/2019 Transcribed Document [facility] Family Medicine [facility] [place] [address] ProviderJarret MD [address] [place], [place] [id number] Social History Tobacco Use Types Packs/Day Years Used Date Smoking Tobacco: Never Assessed Sex and Gender Information Value Date Recorded Sex Assigned at Not on file Legal Sex Male 5:24 PM CDT Gender Identity Not on file Sexual Orientation Not on file documented as of this encounter Miscellaneous Notes * Cerner Conversion Note - Jarret ProviderMD - 07/27/2019 1:11 PM CDT [facility] Main OR IntraOp Summary Primary Physician: TAHIRA PARSONS MD-SUR Finalized Date/Time: 07/30/19 13:00:13 Pt. Name: MIGUEL ÁNGEL BOSTON/Sex: 1945 Male Med Rec #: [id number] Physician: TAHIRA PARSONS MD-SUR Financial #: [id number] Pt. Type: O Room/Bed: Admit/Disch: 07/27/19 10:27:00 - 07/27/19 15:54:00 Institution: [facility] IntraOp Case Attendance Entry 1 Entry 2 Entry 3 Case Attendee TAHIRA PARSONS MD-TIMOTEO ROCHA MD-Octavia Clay Crna Role Performed Surgeon/Proceduralist, Anesthesiologist of CRANE ASSEMBLER/Nurse Electric Transfer Operator First Record Time In 07/27/19 12:33:00 07/27/19 [...] OTHER, ATTENDEE #1 TED GREY Robin A Rubber Grinder Role Performed Supervisor Beam Department, First Scrub, First Time In 07/27/19 12:33:00 07/27/19 12:33:00 07/27/19 12:33:00 Time Out 07/27/19 14:04:00 07/27/19 14:04:00 07/27/19 14:04:00 Procedure Hernia Repair Hernia Repair Hernia Repair Inguinal(Left) Inguinal(Left) Inguinal(Left) Other Attendee Tony Baldwin - CRANE ASSEMBLER Student Superficial Wound Closed By: Last Modified By: Bruce Mcintosh RN Harover, Michael, RN Harover, Michael, RN 07/27/19 14:04:43 07/27/19 14:04:43 07/27/19 14:04:43 Entry 7 Entry 8 Entry 9 Case Attendee Jolene Herman RN Harover, Michael, Kiley Rollins, -ERVIN Role Performed Light Rail Train Operator, First Light Rail Train Operator, Second Instructor Correspondence School, Ancillary Time In 07/27/19 12:33:00 07/27/19 13:05:00 07/27/19 12:33:00 Time Out 07/27/19 14:04:00 07/27/19 14:04:00 07/27/19 14:04:00 Procedure Hernia Repair Hernia Repair Hernia Repair Inguinal(Left) Inguinal(Left) Inguinal(Left) Other Attendee Orientee SSI Superficial Wound Closed By: Last Modified By: Bruce Mcintosh RN Harover, Michael, RN Harover, Michael, RN 07/27/19 14:04:43 07/27/19 14:04:43 07/27/19 14:04:43 Entry 10 Case Attendee OTHER, ATTENDEE #2 Role Performed Instructor Correspondence School, Ancillary Time In 07/27/19 12:33:00 Time Out 07/27/19 14:04:00 Procedure Hernia Repair Inguinal(Left) Other Attendee Bernard Paez SSI Superficial Wound Closed By: Last Modified By: Bruce Mcintosh RN 07/27/19 14:04:[address] [facility] IntraOp Case Attendance Audit 07/27/19 14:04:43 Commercial Service Technician: [id number] Modifier: [id number] 1 <+> Time Out 1 <*> Procedure [...] <*> Procedure Hernia Repair Inguinal(Left) 07/27/19 13:52:33 Commercial Service Technician: [id number] Modifier: [id number] <+> 1 Procedure <+> 2 Procedure <+> 3 Procedure <+> 4 Procedure <+> 5 Procedure <+> 6 Procedure <+> 7 Procedure <+> 8 Procedure <+> 9 Procedure <+> 10 Procedure 07/27/19 13:52:16 Commercial Service Technician: [id number] Modifier: [id number] 1 <-> Procedure Hernia Repair Inguinal Robotic(Left) [...] Procedure Hernia Repair Inguinal Robotic(Left) 07/27/19 13:34:12 Commercial Service Technician: [id number] Modifier: [id number] 1 <*> Procedure Hernia Repair Inguinal Robotic(Left), [...] Robotic(Left), Hernia Repair Inguinal Robotic(Left) 07/27/19 13:33:52 Commercial Service Technician: [id number] Modifier: [id number] 1 <*> Procedure Hernia Repair Inguinal Robotic(Left) [...] Procedure Hernia Repair Inguinal Robotic(Left) 07/27/19 13:32:28 Commercial Service Technician: [id number] Modifier: [id number] <+> 1 Procedure 2 <*> Procedure Hernia [...] Procedure Hernia Repair Inguinal Robotic(Left) 07/27/19 13:23:00 Commercial Service Technician: [id number] Modifier: [id number] <+> 6 Procedure 7 <+> Time In 7 <*> Procedure Hernia Repair Inguinal Robotic(Left) 8 <*> Procedure Hernia Repair Inguinal Robotic(Left) 9 <+> Time In 9 <*> Procedure Hernia Repair Inguinal Robotic(Left) 10 <+> Time In 10 <*> Procedure Hernia Repair Inguinal Robotic(Left) 07/27/19 13:22:59 Commercial Service Technician: [id number] Modifier: [id number] 2 <+> Time In 2 <*> Procedure Hernia Repair Inguinal Robotic(Left) 3 <+> Time In 3 <*> Procedure Hernia Repair Inguinal Robotic(Left) 4 <+> Time In 4 <*> Procedure Hernia Repair Inguinal Robotic(Left) 5 <+> Time In 5 <*> Procedure Hernia Repair Inguinal Robotic(Left) 6 <+> Time In 6 <-> Procedure Hernia Repair Inguinal Robotic(Left) 07/27/19 13:22:53 Commercial Service Technician: [id number] Modifier: [id number] <+> 1 Time In <+> 2 Case [...] <+> 10 Procedure <+> 10 Other Attendee [facility] IntraOp Case Times Entry 1 Patient In Room Time 07/27/19 12:33:00 Out Room Time 07/27/19 14:04:00 Anesthesia Start Time 07/27/19 12:33:00 Stop Time 07/27/19 14:04:00 Surgery / Procedure Times Start Time 07/27/19 13:11:00 Stop Time 07/27/19 14:01:00 Last Modified By: Bruce Mcintosh RN 07/27/19 14:04:[address] [facility] IntraOp Case Times Audit 07/27/19 14:04:41 Commercial Service Technician: [id number] Modifier: [id number] <+> 1 Out Room Time <+> 1 Stop Time 07/27/19 14:01:59 Commercial Service Technician: [id number] Modifier: [id number] <+> 1 Stop Time [facility] IntraOp Cautery Entry 1 ESU Identification Cautery Type Monopolar ESU ID Number [id number] ID Type Hospital Number Cautery Settings Cut Setting 3 Coag Setting 3 ESU Grounding Pad Ground Pad Type Adult Grounding Pad Site Right thigh Grounding Pad Site posterior Comment Grounding Pad Jolene Herman RN Applied By Grounding Pad Site Warm, Dry, Intact Skin Condition Before Cautery Grounding Pad Site Unchanged Skin Condition After Cautery Last Modified By: Bruce Mcintosh RN 07/27/19 13:24:[address] [facility] IntraOp Communication Entry 1 Entry 2 Communication To Family/Significant other Family/Significant other Comment start Communication By Jolene Herman, Jolene Osorio, SHERI Date and Time 07/27/19 13:20:00 07/27/19 13:56:00 Last Modified By: Bruce Mcintosh RN Harover, Michael, RN 07/27/19 13:26:23 07/27/19 14:02:[address] [facility] IntraOp Communication Audit 07/27/19 14:02:21 Commercial Service Technician: [id number] Modifier: [id number] <+> 2 Communication By <+> 2 Date and Time <+> [address] [facility] IntraOp Counts Verification Entry 1 Procedure Hernia Repair Inguinal(Left) Count Info Count Type Sponge, Sharps, Miscellaneous Counts Verification Baseline/pre-procedure Sequence Count Results Correct, surgeon notified Counts Performed By Count Performed By Tr Mobley, Surgical (Scrub) Instructor Correspondence School Count Performed By Jolene Herman RN (RN) Last Modified By: Bruce Mcintosh RN 07/27/19 13:52:[address] [facility] IntraOp Counts Verification Audit 07/27/19 13:52:34 Commercial Service Technician: [id number] Modifier: [id number] <+> 1 Procedure 07/27/19 13:52:16 Commercial Service Technician: [id number] Modifier: [id number] 1 <-> Procedure Hernia Repair Inguinal Robotic(Left) 07/27/19 13:34:13 Commercial Service Technician: [id number] Modifier: [id number] 1 <*> Procedure Hernia Repair Inguinal Robotic(Left), Hernia Repair Inguinal Robotic(Left) 07/27/19 13:33:54 Commercial Service Technician: [id number] Modifier: [id number] 1 <*> Procedure Hernia Repair Inguinal Robotic(Left) [facility] IntraOp Counts Final Entry 1 Procedure Hernia Repair Inguinal(Left) Final Count Info Count Type Sponge, Sharps, Miscellaneous Counts Verification Skin Closure/end of Sequence procedure Count Results Correct, surgeon notified Counts Performed By Count Performed By Tr Mobley, Surgical (Scrub) Instructor Correspondence School Count Performed By Bruce Mcintosh RN (RN) Last Modified By: Bruce Mcintosh RN 07/27/19 13:56:[address] [facility] IntraOp Delays Entry 1 Delay Reason OR staff not available Duration 15 Minute(s) Last Modified By: Bruce Mcintosh RN 07/27/19 13:14:[address] [facility] IntraOp Departure from OR Entry 1 Integumentary Assessment Integumentary WDL Assessment WDL Transfer/Handoff Transfer to PACU Phase I Handoff Method Bedside/Face to face, Phone call, Online nursing summary Post-op Transport Stretcher/Gurney Via Patient Transport TED GREY, Accompanied by Octavia Daniels Crna Last Modified By: Bruce Mcintosh RN 07/27/19 13:28:[address] [facility] IntraOp Departure from OR Audit 07/27/19 13:28:18 Commercial Service Technician: [id number] Modifier: [id number] <+> 1 Handoff Method [facility] IntraOp Dressing and Packing Entry 1 Type Dressing Location OPSITE Wound Dressing Item Skin Closure Glue Applied By TED GREY Last Modified By: Bruce Mcintosh RN 07/27/19 14:01:[address] [facility] IntraOp Fire Risk Assessment Entry 1 Fire [...] Modified By: Bruce Mcintosh RN 07/27/19 13:28:[address] [facility] IntraOp Fire Risk Assessment Audit 07/27/19 13:28:33 Commercial Service Technician: [id number] Modifier: [id number] <+> 1 Fire Risk Assessment Verified Date/Time [facility] IntraOp General Case Machine Guide Base Winder 1 Case Information OR OR [address] [facility] Case Level 1 Room Verified Yes Wound Class I - Clean Specialty SN General Anesthesia Type General ASA Class 2 Diagnosis Preop Diagnosis left inguinal hernia Postop Same As Preop No Postop Diagnosis see MD post operative notes Last Modified By: Bruce Mcintosh RN 07/27/19 13:29:[address] [facility] IntraOp Implant Log Entry 1 Type Implant (Synthetic) Implant Log Implant MESH JORDANA PRE-SHP Identification [id number] Description Implant Quantity 1 Implant Site op site - left groin Implant [id number] Identification Lot Number Implant [employer] Identification Screen Door Maker Name: Implant [id number] Identification Catalog Number Implant Has an Yes Expiration Date Implant Expiration 06/17/21 Date Tissue Implant Last Modified By: Bruce Mcintosh RN 07/27/19 13:42:[address] [facility] IntraOp Intraoperative Assessment Entry 1 Handoff Method [...] Modified By: Bruce Mcintosh RN 07/27/19 13:30:[address] [facility] IntraOp Intraoperative Equipment Entry 1 Type Monitoring Equipment Equipment Tatyana Suction System ID Number [id number] Intraop Monitoring Blood Pressure Non-Invasive BP Device Source Blood Pressure Arm, right upper Location Pulse Oximeter Hand, left Probe Site Antiembolic Devices Antiembolic Devices Sequential compression device, knee high Antiembolic Device Bilateral Location Antiembolic Device [id number] ID Number Antiembolic Device SCD'S ON AND WORKING Setting PRIOR TO INDUCTION Scopes Photo/Video Documentation Photo No Video No Last Modified By: Bruce Mcintosh RN 07/27/19 13:31:[address] [facility] IntraOp Medication Admin Entry 1 Medication/Irrigant Marcaine 0.5% w/ epinephrine 1:200,000 30ml vial - [id number] Route of local Administration Dose Dose 26 Unit of Measure ml Administered By TAHIRA PARSONS MD-SUR Procedure Irrigation Last Modified By: Bruce Mcintosh RN 07/27/19 13:49:[address] [facility] IntraOp Patient Positioning Entry 1 Procedure Hernia Repair Inguinal(Left) Body Position Supine Left Arm Position Tucked and padded at side Right Arm Position Tucked and padded at side Left Leg Position Uncrossed, parallel Right Leg Position Uncrossed, parallel Feet Uncrossed Yes Pressure Points Yes Checked Positioning Devices Head Rest, Safety Strap, Thighs, Pad, Arm Device Position FOAM POSITIONING MATTRESS Positioned By Octavia Daniels, Leland, Jolene Herman RN, TED GREY, TAHIRA PARSONS MD-TREVOR Position Verified Positioning Yes Verified by Anesthesia Positioning Yes Verified by Surgeon Last Modified By: Bruce Mcintosh RN 07/27/19 13:52:[address] [facility] IntraOp Patient Positioning Audit 07/27/19 13:52:34 Commercial Service Technician: [id number] Modifier: [id number] <+> 1 Procedure 07/27/19 13:52:17 Commercial Service Technician: [id number] Modifier: [id number] 1 <-> Procedure Hernia Repair Inguinal Robotic(Left) 07/27/19 13:34:14 Commercial Service Technician: [id number] Modifier: [id number] 1 <*> Procedure Hernia Repair Inguinal Robotic(Left), Hernia Repair Inguinal Robotic(Left) 07/27/19 13:33:55 Commercial Service Technician: [id number] Modifier: [id number] 1 <*> Procedure Hernia Repair Inguinal Robotic(Left) [facility] IntraOp Sign In Entry 1 Patient, Site, [...] Modified By: Bruce Mcintosh RN 07/27/19 13:32:[address] [facility] IntraOp Sign Out Entry 1 RN Confirmation [...] Modified By: Bruce Mcintosh RN 07/27/19 14:05:[address] [facility] IntraOp Sign Out Audit 07/27/19 14:05:09 Commercial Service Technician: [id number] Modifier: [id number] <+> 1 RN Sign Out Signature <+> 1 RN Sign Out Signature Date/Time <+> 1 Urinary Catheter Documented in IView [facility] IntraOp Skin Prep Entry 1 Procedure Hernia Repair Inguinal(Left) Prescribed Yes Pre-Surgical Prep Completed Prep Area ABDOMEN AND OPERTIVE SIDE GROIN Intraop Prep Integumentary WDL Assessment WDL Prep Agents Chloraprep Prep by TAHIRA PARSONS MD-TREVOR Hair Removal Methods No hair removal performed Last Modified By: Burce Mcintosh RN 07/27/19 13:52:[address] [facility] IntraOp Skin Prep Audit 07/27/19 13:52:35 Commercial Service Technician: [id number] Modifier: [id number] <+> 1 Procedure 07/27/19 13:52:17 Commercial Service Technician: [id number] Modifier: [id number] 1 <-> Procedure Hernia Repair Inguinal Robotic(Left) 07/27/19 13:34:14 Commercial Service Technician: [id number] Modifier: [id number] 1 <*> Procedure Hernia Repair Inguinal Robotic(Left), Hernia Repair Inguinal Robotic(Left) 07/27/19 13:33:55 Commercial Service Technician: [id number] Modifier: [id number] 1 <*> Procedure Hernia Repair Inguinal Robotic(Left) [facility] IntraOp Surgical Procedures Entry 1 Procedure Hernia Repair Inguinal Modifiers Left Additional attempt lap/robot Procedure convert to open left Description inguinal hernia repair with mesh Primary Procedure Yes Primary Surgeon TAHIRA PARSONS MD-SUR Start 07/27/19 13:11:00 Stop 07/27/19 14:01:00 Anesthesia Type General Specialty SN General Wound Class I - Clean Last Modified By: Bruce Mcintosh RN 07/27/19 14:02:[address] [facility] IntraOp Surgical Procedures Audit 07/27/19 14:02:01 Commercial Service Technician: [id number] Modifier: [id number] <+> 1 Stop 07/27/19 13:52:28 Commercial Service Technician: [id number] Modifier: [id number] 1 <*> Procedure Hernia Repair Inguinal Robotic 1 <*> Additional Procedure Description (ROBOTIC ASSISTED LAPAROSCOPIC LT INGUINAL HERNIA REPAIR WITH MESH) 07/27/19 13:34:29 Commercial Service Technician: [id number] Modifier: [id number] 1 <*> Procedure Hernia Repair Inguinal Robotic [...] INGUINAL HERNIA REPAIR WITH MESH 07/27/19 13:33:46 Commercial Service Technician: [id number] Modifier: [id number] <+> 2 Procedure <+> 2 Primary Procedure <+> 2 Modifiers <+> 2 Primary Surgeon <+> 2 Specialty <+> 2 Start <+> 2 Wound Class <+> 2 Anesthesia Type <+> 2 Additional Procedure Description [facility] IntraOp Temp Regulation Devices Entry 1 Temp Regulation Temperature Forced Air Warming Regulation Device device, Warm blankets Temperature 10452 Regulation Device Serial/Unit Number Temperature Upper body Regulation Site Temperature Device SET AND MONITORED BY Setting ANESTHESIA Temperature Octavia Daniels Crna Regulation Device Applied by Last Modified By: Bruce Mcintosh RN 07/27/19 13:34:[address] [facility] IntraOP Time Out Entry 1 Procedure to [...] Modified By: Bruce Mcintosh RN 07/27/19 13:52:[address] [facility] IntraOP Time Out Audit 07/27/19 13:52:35 Commercial Service Technician: [id number] Modifier: [id number] <+> 1 Procedure to be Performed 07/27/19 13:52:17 Commercial Service Technician: [id number] Modifier: [id number] 1 <-> Procedure to be Performed Hernia Repair Inguinal Robotic(Left) 07/27/19 13:36:28 Commercial Service Technician: [id number] Modifier: [id number] 1 <+> Beta Jesus Administered 1 <+> [...] Unfinalizing Freetext Reason for Unfinalizing 07/30/19 12:58 WATMEGANDR Correct Billing documented in this encounter Plan of Treatment Not on file documented as of this encounter Visit Diagnoses Not on filedocumented in this encounter Care Teams Bag Shaker Relationship Specialty Start Date End Date Bruce Garcia MD [address] [facility] [address] [place] [address] Medical Oncologist Hematology and Oncology 05/05/22 Raya Eaton, PA-C [address] [facility] [address] [address] Physician Brush Holder Assembler Oncology 05/05/22 Luz Suarez, RN Nurse Navigator Oncology 07/02/22 01/18/25 Berkley Alfonso RN Registered Nurse Oncology 07/02/22 documented as of this encounter
--- OUTSIDE RECORDS SUMMARY | 2025-02-08 13:18 | XMS_ITS | Encounter Summary ---
Author Organization [employer] ([place], [place], [place], [place], [place]) Address [address] [place] [address] Care Team Providers Care Nursing Home Aide Name Role Phone Bruce Garcia MD Unavailable Raya Eaton PA-C Unavailable [phone] Luz Suarez RN Unavailable Unavailable Berkley Alfonso RN Unavailable Unavailable Encounter Details Date Type Department Care Team (Late st Contact Info) Description 07/27/2019 Transcribed Document [facility] [place] [facility] [place] [address] Jarret Sotelo MD [address] [place] [address] Social History Tobacco Use Types [...] activities are safe for you. ??? Take bwah-iiq-ayediaw and prescription medicines only as told by [...] 05/31/2001 Document Revised: 10/08/2017 Document Reviewed: 10/08/2017 [employer] Interactive Patient Education ? 2019 [employer]incan. Gastroenterology Open Hernia Repair, Adult, Care After [...] cannot use soap and water, use hand celery tier. ? Change your bandage as told by [...] (urine) clear or pale yellow. ? Take fidr-loq-xjsguxo or prescription medicines. ? Eat foods that are high in fiber, such as fresh fruits and vegetables, whole grains, and beans. ? Limit foods that are high in fat and processed sugars, such as fried and sweet foods. ??? Take vdnb-iyp-bysipba and prescription medicines only as told by [...] 03/15/2015 Document Revised: 09/11/2016 Document Reviewed: 08/05/2016 [employer] Interactive Patient Education ? 2019 [employer]tincan. documented in this encounter Plan of Treatment Not on file documented as of this encounter Visit Diagnoses Not on filedocumented in this encounter Care Teams Nursing Home Aide Relationship Specialty Start Date End Date Bruce Garcia MD [address] [facility] [address] [place] [address] Medical Oncologist Hematology and Oncology 05/05/22 Raya Eaton, PACaroleeC [address] [facility] [address] [facility] [address] [place] [address] Physician Slot Operations Manager Oncology 05/05/22 Luz Suarez, RN Nurse Navigator Oncology 07/02/22 01/18/25 Berkley Alfonso, RN Registered Nurse Oncology 07/02/22 documented as of this encounter
--- OUTSIDE RECORDS SUMMARY | 2025-02-08 13:18 | XMS_ITS | Encounter Summary ---
Author Organization [employer] ([place], [place], [place], [place], [place]) Address [address] [place] [address] Care Team Providers Care Animal Geneticist Name Role Phone Bruce Garcia MD Unavailable Raya Eaton PA-C Unavailable [phone] Luz Suarez RN Unavailable Unavailable Berkley Alfonso RN Unavailable Unavailable Encounter Details Date Type Department Care Team (Late st Contact Info) Description 07/27/2019 Transcribed Document [facility] Family Medicine [address] [place] [address] ProviderJarret MD [address] [place] [address] Social History Tobacco Use Types [...] Sotelo MD - 07/27/2019 3:31 PM CDT [facility] [place] [address] MIGUEL ÁNGEL TORIBIO :1945 Visit Time:07/27/2019 [...] activities are safe for you. ??? Take zpqn-yfl-zrjzong and prescription medicines only as told by [...] 05/31/2001 Document Revised: 10/08/2017 Document Reviewed: 10/08/2017 [employer] Interactive Patient Education ?? 2019 [employer] Inc. Open Hernia Repair, Adult, Care After [...] cannot use soap and water, use hand program aide. ? Change your bandage as told by [...] (urine) clear or pale yellow. ? Take kxza-mbc-shgzccx or prescription medicines. ? Eat foods that are high in fiber, such as fresh fruits and vegetables, whole grains, and beans. ? Limit foods that are high in fat and processed sugars, such as fried and sweet foods. ??? Take voik-ueb-tlsgggq and prescription medicines only as told by [...] 03/15/2015 Document Revised: 09/11/2016 Document Reviewed: 08/05/2016 [employer] Interactive Patient Education ?? 2019 liveBooks. acetaminophen and hydrocodone (a SEET a MIN oh fen and arron droe KOE done) Hycet, Lorcet, Adair, Verdrocet, Vicodin, Xodol, Zamicet What is the [...] may report side effects to FDA at 3-467-ZWU-5148. What other drugs will affect acetaminophen and [...] affect acetaminophen and hydrocodone, including prescription and rmrk-mxt-uegzqaa medicines, vitamins, and herbal products. Not all [...] to ensure that the information provided by [employer], [employer]. ('[employer]') is accurate, up-to-date, and complete, but no guarantee is made to that effect. Drug information contained herein may be time sensitive. [employer] information has been compiled for use by healthcare practitioners and consumers in the [place] and therefore [employer] does not warrant that uses outside of the [place] are appropriate, unless specifically indicated otherwise. [employer] drug information does not endorse drugs, diagnose patients or recommend therapy. [employer] drug information is an informational resource designed [...] effective or appropriate for any given patient. [employer] does not assume any responsibility for any aspect of healthcare administered with the aid of information [employer] provides. The information contained herein is not intended to cover all possible uses, directions, precautions, warnings, drug interactions, allergic reactions, or adverse effects. If you have questions about the drugs you are taking, check with your doctor, nurse or pharmacist. Copyright 3786-6552 [employer]. Version: 16.01. Revision Date: 03/29/2019. Emergency Awareness [...] Assistance with quitting is available by contacting 0-122-LFXP-NOW. This is a free resource providing counseling, [...] was given the opportunity to ask questions. Patient/Medical Records Auditor Name: Patient/Medical Records Auditor Signature: Relationship to Patient: Clinician/Hospital Medical Records Auditor Signature: Date: documented in this encounter Plan of Treatment Not on file documented as of this encounter Visit Diagnoses Not on filedocumented in this encounter Care Teams Animal Geneticist Relationship Specialty Start Date End Date Bruce Garcia MD [address] [facility] [address] [place] [address] Medical Oncologist Hematology and Oncology 05/05/22 Raya Eaton, PA-C [address] [facility] [address] [place] [address] Physician Child Care Cook Oncology 05/05/22 Luz Suarez, RN Nurse Navigator Oncology 07/02/22 01/18/25 Berkley Alfonso, RN Registered Nurse Oncology 07/02/22 documented as of this encounter
--- OUTSIDE RECORDS SUMMARY | 2025-02-08 13:18 | XMS_ITS | Encounter Summary ---
Author Organization [employer] ([place], [place], [place], [place], [place]) Address [address] [place] [address] Care Team Providers Care Illusionist Name Role Phone Bruce Garcia MD Unavailable Raya Eaton PA-C Unavailable [phone] Luz Suarez RN Unavailable Unavailable Berkley Alfonso RN Unavailable Unavailable Encounter Details Date Type Department Care Team (Late st Contact Info) Description 07/27/2019 Transcribed Document [facility] Family Medicine [facility] [place] [address] ProviderJarret MD [address] [place], [place] [id number] Social History Tobacco Use Types Packs/Day Years Used Date Smoking Tobacco: Never Assessed Sex and Gender Information Value Date Recorded Sex Assigned at Not on file Legal Sex Male 5:24 PM CDT Gender Identity Not on file Sexual Orientation Not on file documented as of this encounter Miscellaneous Notes * Cerner Conversion Note - Jarret ProviderMD - 07/27/2019 1:[address] [facility] Main OR PACU Summary Primary Physician: TAHIRA PARSONS MD-SUR Finalized Date/Time: 07/27/19 15:37:21 Pt. Name: RENE TORIBIO/Sex: 1945 Male Med Rec #: [id number] Physician: TAHIRA PARSONS MD-SUR Financial #: [id number] Pt. Type: O Room/Bed: Admit/Disch: 07/27/19 10:27:00 - Institution: [facility] Main OR PACU I Case Times Entry 1 In PACU I 07/27/19 14:05:00 Ready for PACU 07/27/19 15:15:00 Discharge Discharge from PACU 07/27/19 15:15:00 I Last Modified By: ZAHIDA TAVERAS RN 07/27/19 15:37:09 Finalized By: ZAHIDA TAVERAS RN Document Signatures Signed By: ZAHIDA TAVERAS RN 07/27/19 15:37 Electronically signed by Cecille [facility] Conversion Dinkey Brakeman Cerner at 06/23/2022 8:03 PM CDT documented in this encounter Plan of Treatment Not on file documented as of this encounter Visit Diagnoses Not on filedocumented in this encounter Care Teams Illusionist Relationship Specialty Start Date End Date Bruce Garcia MD [address] [place] [address] Medical Oncologist Hematology and Oncology 05/05/22 Raya Eaton, PA-C [address] [facility] [address] [place] [phone] Physician Water Sponger Oncology 05/05/22 Luz Suarez, SHERI Nurse Navigator Oncology 07/02/22 01/18/25 Berkley Alfonso RN Registered Nurse Oncology 07/02/22 documented as of this encounter
--- OUTSIDE RECORDS SUMMARY | 2025-02-08 13:18 | XMS_ITS | Encounter Summary ---
Author Organization [employer] ([place], [place], [place], [place], [place]) Address [address] [place] [address] Care Team Providers Care Fish Salter Name Role Phone Bruce Garcia MD Unavailable Raya Eaton PA-C Unavailable [phone] Luz Suarez RN Unavailable Unavailable Berkley Alfonso RN Unavailable Unavailable Encounter Details Date Type Department Care Team (Late st Contact Info) Description 07/26/2019 Transcribed Document [facility] Family Medicine [address] [place] [address] ProviderJarret MD [address] [place] [address] Social History Tobacco Use Types [...] Body Mass Index : 26.9 kg/m2 (HI) [place] Body Weight : 74 kg MARY Valdovinos RN - 07/27/2019 11:12 EDT Height Source : Measured Height Entry Format : [place] Weight Source : Standing scale Weight Entry Format : [place] MARY Valdovinos RN - 07/26/2019 13:51 EDT [...] MARY Valdovinos RN - 07/26/2019 13:51 EDT [place] Suicide Severity Rating Scale (C-SSRS) CSSRS Past [...] Ambulatory Legal Guardian : Unaccompanied Support Person/Patient Final Finisher Forging Dies : Yes Support Person/Pt Rep Name : Josey Toribio, spouse Support Person/Pt Rep Contact Information : [phone] Want Family/Rep/Phys Notified of Admit : No Emergency Contact #1 : ` Emergency Contact #1 Phone Number : ` Emergency Contact #1 Relationship : ` Emergency Contact #2 : ` Emergency Contact #2 Phone Number : ` Emergency Contact #2 Relationship : ` Primary Language : Somali Preferred Communication Mode : Verbal Communication Barrier [...] on filedocumented in this encounter Care Teams Fish Salter Relationship Specialty Start Date End Date Bruce Garcia MD [address] [facility] [address] [facility] [place] [address] Medical Oncologist Hematology and Oncology 05/05/22 Raya Eaton, PACaroleeC [address] [place] [address] Physician Animal Husbandry Professor Oncology 05/05/22 Luz Suarez, RN Nurse Navigator Oncology 07/02/22 01/18/25 Berkley Alfonso, RN Registered Nurse Oncology 07/02/22 documented as of this encounter
--- OUTSIDE RECORDS SUMMARY | 2025-02-08 13:18 | XMS_ITS | Encounter Summary ---
Author Organization [employer] ([place], [place], [place], [place], [place]) Address [address] [place] [address] Care Team Providers Care Farm Loan Inspector Name Role Phone Bruce Garcia MD Unavailable Raya Eaton PA-C Unavailable [phone] Luz Suarez RN Unavailable Unavailable Berkley Alfonso RN Unavailable Unavailable Encounter Details Date Type Department Care Team (Late st Contact Info) Description 07/27/2019 Transcribed Document [facility] Family [place] [facility] [place] [address] ProviderJarret MD [address] [place], [place] [id number] Social History Tobacco Use Types Packs/Day Years Used Date Smoking Tobacco: Never Assessed Sex and Gender Information Value Date Recorded Sex Assigned at Not on file Legal Sex Male 5:24 PM CDT Gender Identity Not on file Sexual Orientation Not on file documented as of this encounter Miscellaneous Notes * Cerner Conversion Note - Jarret ProviderMD - 07/27/2019 1:11 PM CDT [facility] Main OR Preop Summary Primary Physician: TAHIRA PARSONS MD-SUR Finalized Date/Time: 07/27/19 14:30:11 Pt. Name: RENE TORIBIO/Sex: 1945 Male Med Rec #: [id number] Physician: TAHIRA PARSONS MD-SUR Financial #: [id number] Pt. Type: O Room/Bed: Admit/Disch: 07/27/19 10:27:00 - Institution: [facility] PreOp Case Times Entry 1 In Preop 07/27/19 10:39:00 Ready for Holding n/a Room Patient Ready for 07/27/19 11:30:00 Surgery Patient Out of Preop 07/27/19 12:30:00 Patient Out of n/a Holding Room Last Modified By: Laly Joe, Nurse Statistical Machine Mechanic 07/27/19 14:30:09 [facility] PreOp Case Times Audit 07/27/19 14:30:09 Vice President Fixed Income: ARLYN Modifier: [id number] <*> Patient Out of Preop 07/27/19 10:49:00 1 <+> Patient Ready for Surgery Finalized By: Laly Joe Nurse Wage Analyst Signatures Signed By: Laly Joe Nurse 07/27/19 14:30 Electronically signed by Cecille [facility] Conversion Pensionholder Information Clerk Cerner at 06/23/2022 8:18 PM CDT documented in this encounter Plan of Treatment Not on file documented as of this encounter Visit Diagnoses Not on filedocumented in this encounter Care Teams Farm Loan Inspector Relationship Specialty Start Date End Date Bruce Garcia MD [address] [facility] [place] [address] Medical Oncologist Hematology and Oncology 05/05/22 Raya Eaton, PA-C [address] [facility] [address] [facility] [address] [place] [address] Physician Waxing Machine Operator Helper Oncology 05/05/22 Luz Suarez, RN Nurse Navigator Oncology 07/02/22 01/18/25 Berkley Alfonso RN Registered Nurse Oncology 07/02/22 documented as of this encounter
--- OUTSIDE RECORDS SUMMARY | 2025-02-08 13:19 | XMS_ITS ---
Author Organization [employer] ([place], [place], [place], [place], [place]) Address [address] [place] [address] Care Team Providers Care Disability Coordinator Name Role Phone Bruce Garcia MD Unavailable Raya Eaton PA-C Unavailable [phone] Berkley Alfonso RN Unavailable Unavailable Active Problems Problem Noted Date Diagnosed Date Prostate cancer 01/23/2022 Cancer Staging:Clinical:Stage IVB(cTX, cN0, pM1b) - Signed by Bruce Garcia MD on 01/23/2022 Current Treatment and Therapy Plans No current plan information found. Past Treatment and Therapy Plans Therapy Infusion Plan 1 Plan Name Start Date Discontinue Date Treatment Medications Discontinue Reason Plan Provider [facility] BONE MODIFYING AGENT DENOSUMAB (PROLIA, XGEVA) 01/23/2022 02/24/2023 denosumab (XGEVA)sodium chloride 0.9 % (NS) Patient Preference Bruce Garcia MD
--- OUTSIDE RECORDS SUMMARY | 2025-02-08 13:19 | XMS_ITS | Encounter Summary ---
Author Organization [employer] ([place], [place], [place], [place], [place]) Address [address] [place] [address] Care Team Providers Care Oil Dispenser Name Role Phone Bruce Garcia MD Unavailable Raya Eaton PA-C Unavailable [phone] Luz Suarez RN Unavailable Unavailable Berkley Alfonso RN Unavailable Unavailable Encounter Details Date Type Department Care Team (Late st Contact Info) Description 07/27/2019 Transcribed Document [facility] [place] [address] [place] [address] Jarret Sotelo MD [address] [place] [id number] Social History Tobacco Use Types Packs/Day Years [...] open left inguinal hernia repair with mesh. INSULATOR APPRENTICE: Irineo Cao. ANESTHESIA: General endotracheal. FINDINGS: The [...] was taken to recovery in stable condition. /[id number] MD BENIGNO Valdivia/CY / BENIGNO / MODL /[id number] Electronically signed by Cecille, [facility] Conversion Turbinated Bone Grinder Cerner at 06/23/2022 8:21 PM CDT documented in this encounter Plan of Treatment Not on file documented as of this encounter Visit Diagnoses Not on filedocumented in this encounter Care Teams Oil Dispenser Relationship Specialty Start Date End Date Bruce Garcia MD [address] [facility] [address] [facility] [place] [address] Medical Oncologist Hematology and Oncology 05/05/22 Raya Eaton, PAVictoria [address] [facility] [address] [place] [address] Physician Experimental Preflight Mechanic Oncology 05/05/22 Luz Suarez, RN Nurse Navigator Oncology 07/02/22 01/18/25 Berkley Alfonso, RN Registered Nurse Oncology 07/02/22 documented as of this encounter
--- OUTSIDE RECORDS SUMMARY | 2025-02-08 13:19 | XMS_ITS | Clinical Summary ---
Author Organization [employer] ([place], [place], [place], [place], [place]) Address [address] [place] [address] Care Team Providers Care Correctional Maintenance Technician Name Role Phone Bruce Garcia MD Unavailable Raya Eaton PA-C Unavailable [phone] Berkley Alfonso RN Unavailable Unavailable Allergies [...] any clubs o r organizations such as buddhist groups, unions, fraternal or athletic groups, or [...] Date Ethan rded Speak language other than Azeri at home Not on file 03/25/2023 Want [...] Health Maintenance Due Date Last Done Comments COVID-19 VACCINE (#1) 08/30/1952 Depression Screening (12+) 1959 Hepatitis C Screening 08/30/1965 DTAP/TDAP/TD VACCINES (1 - Tdap) 08/30/1966 Pneumococcal 50+ years (1 of 1 - PCV) 08/30/1997 Shingles Vaccine (Zoster) (1 of 2) 08/30/1997 Medicare Initial AWV [id number] 11/07/2020 Respiratory Syncytial Virus (RSV) Adult or (1 - 1-dose 75+ series) 08/30/2022 Tobacco Cessation Counseling and Screening (12+) 08/1408/14/2022 Falls Risk Screening 03/08/2024 Influenza Vaccine (#1) 2024 Insurance [employer] MEDICARE PPO [employer] MEDICARE HMO Care Teams Correctional Maintenance Technician Relationship Specialty Start Date End Date Bruce Garcia MD [address] [facility] [address] [place] [address] Medical Oncologist Hematology and Oncology 05/05/22 Raya Eaton, PA-C [address] [place] [address] Physician General Foundry Worker Oncology 05/05/22 Berkley Alfonso, RN Registered Nurse Oncology 07/02/22
[2025-02-08 13:35] LABS: Hematocrit 42.3 % (42.0-52.0); Hemoglobin 13.9 g/dL (14.1-18.0); Immature Granulocytes % 1.6 %; Mean Corpuscular HGB Conc 32.9 g/dL (31.8-35.4); Mean Corpuscular Hemoglobin 30.0 pg (27.0-31.2); Mean Corpuscular Volume 91.4 fl (80-94); Nucleated Red Blood Cells % 0 %; Platelet Count 158 K/mm3 (142-424); Red Blood Count 4.63 M/mm3 (4.60-6.20); Red Cell Distribution Width-SD 48.6 fL; White Blood Count 7.6 K/mm3 (4.8-10.8)
[2025-02-08 13:53] LABS: Alanine Aminotransferase 17 U/L (12-78); Albumin Level 4.1 g/dl (3.5-5.0); Albumin/Globulin Ratio 1.8 (1.1-1.8); Alkaline Phosphatase 40 U/L (38-126); Anion Gap 8.4 mEq/L (5-15); Aspartate Amino Transferase 32 U/L (17-59); Bilirubin,Total 0.7 mg/dl (0.2-1.3); Blood Urea Nitrogen 24 mg/dl (9-20); Calcium 9.4 mg/dl (8.4-10.2); Carbon Dioxide 27 mmol/L (22.0-30.0); Chloride 101 mmol/L (98-107); Creatinine,Serum 1.20 mg/dl (0.66-1.25); Estimated Glomerular Filt Rate 59 ml/min (>60); GFR (African American) 71 ML/MIN (>60); Globulin 2.3 g/dL (1.3-3.2); Glucose 120 mg/dl (74-100); Potassium 3.4 mmoL/L (3.5-5.1); Sodium 133 mmol/L (136-145); Total Protein,Serum 6.4 g/dl (6.3-8.2)
[2025-02-08 14:23] LABS: Prostate Specific Ag, Diagnost 15.7 ng/ml (0.0-4.0)
== END 2025-02-08 23:59 | disposition home or self-care (01) ==
PROVIDERS: Visit Provider Internal Medicine Medical Oncology
DX: C79.82 Secondary malignant neoplasm of genital organs (principal)
CPT/HCPCS: 36415; 80053; 84153; 85025